=== PATIENT | female | born 1935 | race Caucasian/White ===

== ENCOUNTER 2018-04-25 20:37 | Inpatient (IN) | payer OTHER ==
[2018-04-25] MEDS ORDERED: ONDANSETRON 4 MG/2 ML VIAL ONE (20:54)
[2018-04-25] MEDS ORDERED: NA CHLORIDE 0.9% 500 ML ONE (21:10)
[2018-04-25] MEDS ORDERED: MORPHINE 4 MG/ML SYR ONE (21:10)
[2018-04-25 21:34] LABS: Absolute Lymphocytes (CBC) 1.5 K/uL (0.7-4.9); Absolute Monocytes 0.4 K/uL (0.1-1.3); Absolute Neutrophil 6.9 K/uL (1.8-8.0); Basophils % 0.3 % (0-1.3); Eosinophils % 0.2 % (0-4.4); Hematocrit 39.7 % (36.0-45.0); Lymphocytes % 16.7 % (15.3-44.8); MCH 34.3 pg (27.0-35.0); MCV 101.7 fL (80-100); MPV 11.1 fL (7.6-11.3); Monocytes % 4.6 % (3.3-12.3); RBC Red Blood Cell Count 3.91 M/uL (3.86-4.86)
[2018-04-25 21:38] LABS: Urine Blood TRACE (NEG); Urine Glucose NEGATIVE (NEG); Urine Protein NEGATIVE (NEG); Urine pH 5.5 (5.0-7.0)
[2018-04-25 21:48] LABS: Urine Bacteria 20-50 /HPF (<20); Urine Culture Reflex Order REFLEXED; Urine RBC <5 /HPF (NONE SEEN)
[2018-04-25 21:49] LABS: Albumin 3.9 g/dL (3.4-5.0); Bilirubin Direct 0.1 mg/dL (0-0.2); Bilirubin Total 0.5 mg/dL (0.2-1.0); Potassium 4.1 mmol/L (3.5-5.1); Protein, Total 7.7 g/dL (6.4-8.2)
--- NOTE | 2018-04-25 23:59 | ER ---
Nurse's Notes [facility] Name: Danielle Najera Age: 82 yrs Sex: Female : 1935 Arrival Date: 04/25/2018 Time: 20:38 Bed 25 Private MD: Rox Aguayo C Diagnosis: Partial mid small bowel obsruction, abdominal pain, nausea, vomting Presentation: 04/25 21:12 Presenting complaint: Patient states: "I HAVE THIS ABDOMINAL PAIN FEW HOURS BEFORE AND rv I VOMITED FOUR TIMES ALREADY.". Transition of care: patient was not received from another setting of care. Onset of symptoms was April 25, 2018 at 17:00. Risk Assessment: Do you want to hurt yourself or someone else? Patient reports no desire to harm self or others. Initial Sepsis Screen: Does the patient meet any 2 criteria? No. Patient's initial sepsis screen is negative. Does the patient have a suspected source of infection? No. Patient's initial sepsis screen is negative. Care prior to arrival: None. 21:12 Method Of Arrival: Ambulatory rv 21:12 Acuity: CANDIE 3 rv Triage Assessment: 21:17 GI: Reports lower abdominal pain, cramping, nausea, vomiting. rv Historical: - Allergies: 21:14 PENICILLINS; rv - PMHx: 21:14 High Cholesterol; Hypertension; rv - PSHx: 21:14 ABDOMINAL SURGERY; rv - Immunization history:: Adult Immunizations up to date. - Social history:: Smoking status: Patient/guardian denies using tobacco, never smoked. - Ebola Screening: : Patient negative for fever greater than or equal to 101.5 degrees Fahrenheit, and additional compatible Ebola Virus Disease symptoms Patient denies exposure to infectious person Patient denies travel to an Ebola-affected area in the 21 days before illness onset. Screenin:17 Abuse screen: Denies threats or abuse. Denies injuries from another. Nutritional rv screening: No deficits noted. Tuberculosis screening: No symptoms or risk factors identified. Fall Risk None identified. Assessment: 21:16 General: Appears in no apparent distress. comfortable, Behavior is calm, cooperative. rv Pain: Complains of pain in abdomen Pain currently is 10 out of 10 on a pain scale. Neuro: Level of Consciousness is awake, alert, obeys commands, Oriented to person, place, time, situation. Cardiovascular: Heart tones S1 S2 present. Respiratory: Airway is patent. GI: Abdomen is flat, non-distended. : No signs and/or symptoms were reported regarding the genitourinary system. EENT: No signs and/or symptoms were reported regarding the EENT system. Derm: Skin is intact. 22:00 Reassessment: Patient appears in no apparent distress at this time. Patient and/or rv family updated on plan of care and expected duration. Pain level reassessed. Patient is alert, oriented x 3, equal unlabored respirations, skin warm/dry/pink. PATIENT WENT TO CT SCAN. 22:23 Reassessment: PATIENT CAME BACK FROM CT SCAN. rv 22:56 Reassessment: Patient appears in no apparent distress at this time. Patient and/or rv family updated on plan of care and expected duration. Pain level reassessed. Patient is alert, oriented x 3, equal unlabored respirations, skin warm/dry/pink. AWAITING CT SCAN RESULT. PATIENT IS COMFORTABLE LYING ON BED. Vital Signs: 21:14 BP 175 / 69; Pulse 68; Temp 97.7; Weight 70.31 kg; Height 4 ft. 11 in. (149.86 cm) (R); rv 22:24 BP 124 / 92; Pulse 76; Pulse Ox 100% on R/A; rv 22:55 BP 138 / 57; Pulse 81; Pulse Ox 94% on R/A; rv 23:30 BP 154 / 69; Pulse 67; Pulse Ox 97% on R/A; rv 21:14 Body Mass Index 31.31 (70.31 kg, 149.86 cm) rv ED Course: 20:38 Patient arrived in ED. es 20:38 Rox Aguayo MD is Private Physician. es 20:38 Catrachito Camacho MD is Attending Physician. kdr 21:05 Inserted saline lock: 20 gauge in left antecubital area, using aseptic technique. rv 21:13 Triage completed. rv 21:17 Arm band placed on left wrist. rv 21:17 Patient has correct armband on for positive identification. Placed in gown. Bed in low rv position. Call light in reach. Side rails up X 1. Adult w/ patient. Pulse ox on. NIBP on. 22:20 CT completed. Patient tolerated procedure well. Patient moved back from CT. cw1 22:21 CT Abd/Pelvis - W/Contrast In Process Unspecified. EDMS 22:58 Urine Culture Sent. rv 23:56 Rox Aguayo MD is Hospitalizing Provider. kdr 04/26 00:39 NGT: inserted 14 Fr. via right nare. verified placement of air over stomach, verified rv return of gastric contents, Patient tolerated. 00:55 No provider procedures requiring assistance completed. Patient admitted, IV remains in rv place. intact. Administered Medications: 04/25 21:05 Drug: Zofran 4 mg Route: IVP; Site: left antecubital; rv 22:59 Follow up: Response: No adverse reaction; Nausea is decreased rv 21:11 Drug: morphine 2 mg Route: IVP; Site: left antecubital; rv 22:59 Follow up: Response: No adverse reaction; Pain is decreased rv 21:11 Drug: NS 0.9% 500 ml Route: IV; Rate: bolus; Site: left antecubital; rv 22:59 Follow up: Response: No adverse reaction; IV Status: Completed infusion rv 04/26 00:15 Drug: Flagyl 500 mg Volume: 100 ml; Route: IVPB; Rate: 200 ml/hr; Infused Over: 30 rv mins; Site: left antecubital; 01:02 Follow up: Response: No adverse reaction; IV Status: Completed infusion rv 00:30 Drug: morphine 4 mg Route: IVP; Site: left antecubital; rv 01:02 Follow up: Response: No adverse reaction; Pain is decreased rv Outcome: 04/25 23:57 Decision to Hospitalize by Provider. kdr 04/26 00:56 Admitted to Tele accompanied by nurse, via stretcher, room 415, with chart, Report rv called to LISETTE Condition: improved Instructed on the need for admit. 01:02 Patient left the ED. rv Signatures: Dispatcher [employer] Catrachito Woodall MD MD kdr Salyer, Edna es Woodley, Crystal cw1 Stephane Anderson RN RN rv
--- NOTE | 2018-04-25 23:59 | EDPHYS ---
Physician Documentation [facility] Name: Danielle Najera Age: 82 yrs Sex: Female : 1935 Arrival Date: 04/25/2018 Time: 20:38 Bed 25 Private MD: Rox Aguayo C ED Physician Catrachito Camacho HPI: 04/25 20:59 This 82 yrs old Female presents to ER via Unassigned with complaints of kdr Vomiting, Abdominal Pain. 20:59 The patient presents to the emergency department with nausea, that is mild, vomiting, kdr that is intermittent, abdominal pain, of the right upper quadrant, left upper quadrant, right lower quadrant and left lower quadrant, described as constant, crampy, sharp, steady, and does not radiate. Onset: The symptoms/episode began/occurred suddenly, just prior to arrival. Possible causes: unknown, Often times has been due to bad food in the past but no known exposure today. The symptoms are aggravated by nothing. The symptoms are alleviated by Movement. Associated signs and symptoms: Pertinent positives: abdominal pain, belching, nausea, vomiting, Pertinent negatives: anorexia, constipation, Had normal BM earlier today. Severity of symptoms: in the emergency department the symptoms are unchanged. The patient has experienced similar episodes in the past, several times. The patient has not recently seen a physician. The patient had a similar episode in December due to bad food. Historical: - Allergies: 21:14 PENICILLINS; rv - PMHx: 21:14 High Cholesterol; Hypertension; rv - PSHx: 21:14 ABDOMINAL SURGERY; rv - Immunization history:: Adult Immunizations up to date. - Social history:: Smoking status: Patient/guardian denies using tobacco, never smoked. - Ebola Screening: : Patient negative for fever greater than or equal to 101.5 degrees Fahrenheit, and additional compatible Ebola Virus Disease symptoms Patient denies exposure to infectious person Patient denies travel to an Ebola-affected area in the 21 days before illness onset. ROS: 20:59 Constitutional: Negative for fever, chills, and weight loss, Eyes: Negative for injury, kdr pain, redness, and discharge, ENT: Negative for injury, pain, and discharge, Neck: Negative for injury, pain, and swelling, Cardiovascular: Negative for chest pain, palpitations, and edema, Respiratory: Negative for shortness of breath, cough, wheezing, and pleuritic chest pain, Back: Negative for injury and pain, : Negative for injury, bleeding, discharge, and swelling, MS/Extremity: Negative for injury and deformity, Skin: Negative for injury, rash, and discoloration, Neuro: Negative for headache, weakness, numbness, tingling, and seizure activity. Psych: Negative for depression, anxiety, suicide ideation, homicidal ideation, and hallucinations, Allergy/Immunology: Negative for hives, rash, and allergies, Endocrine: Negative for neck swelling, polydipsia, polyuria, polyphagia, and marked weight changes, Hematologic/Lymphatic: Negative for swollen nodes, abnormal bleeding, and unusual bruising. 20:59 Abdomen/GI: Positive for abdominal pain, nausea and vomiting, abdominal cramps, Negative for diarrhea, constipation, abdominal distension, anorexia, dysphagia, hematemesis, black/tarry stool, rectal pain, rectal bleeding, bowel incontinence. Exam: 20:59 Constitutional: This is a well developed, well nourished patient who is awake, alert, kdr and in no acute distress. Head/Face: Normocephalic, atraumatic. Eyes: Pupils equal round and reactive to light, extra-ocular motions intact. Lids and lashes normal. Conjunctiva and sclera are non-icteric and not injected. Cornea within normal limits. Periorbital areas with no swelling, redness, or edema. Neck: Trachea midline, no thyromegaly or masses palpated, and no cervical lymphadenopathy. Supple, full range of motion without nuchal rigidity, or vertebral point tenderness. No Meningismus. Chest/axilla: Normal chest wall appearance and motion. Nontender with no deformity. No lesions are appreciated. Cardiovascular: Regular rate and rhythm with a normal S1 and S2. No gallops, murmurs, or rubs. Normal PMI, no JVD. No pulse deficits. Respiratory: Lungs have equal breath sounds bilaterally, clear to auscultation and percussion. No rales, rhonchi or wheezes noted. No increased work of breathing, no retractions or nasal flaring. Back: No spinal tenderness. No costovertebral tenderness. Full range of motion. Skin: Warm, dry with normal turgor. Normal color with no rashes, no lesions, and no evidence of cellulitis. MS/ Extremity: Pulses equal, no cyanosis. Neurovascular intact. Full, normal range of motion. Neuro: Awake and alert, GCS 15, oriented to person, place, time, and situation. Cranial nerves II-XII grossly intact. Motor strength 5/5 in all extremities. Sensory grossly intact. Cerebellar exam normal. Normal gait. Psych: Awake, alert, with orientation to person, place and time. Behavior, mood, and affect are within normal limits. 20:59 Abdomen/GI: Inspection: abdomen appears normal, obese Bowel sounds: active, diminished, in all quadrants, Palpation: soft, moderate abdominal tenderness, in all quadrants. Vital Signs: 21:14 BP 175 / 69; Pulse 68; Temp 97.7; Weight 70.31 kg; Height 4 ft. 11 in. (149.86 cm) (R); rv 22:24 BP 124 / 92; Pulse 76; Pulse Ox 100% on R/A; rv 22:55 BP 138 / 57; Pulse 81; Pulse Ox 94% on R/A; rv 23:30 BP 154 / 69; Pulse 67; Pulse Ox 97% on R/A; rv 21:14 Body Mass Index 31.31 (70.31 kg, 149.86 cm) rv MDM: 20:59 Data reviewed: vital signs, nurses notes, lab test result(s), radiologic studies. kdr Counseling: I had a detailed discussion with the patient and/or guardian regarding: the historical points, exam findings, and any diagnostic results supporting the discharge/admit diagnosis, lab results, radiology results. 23:57 Patient medically screened. [facility] 04/26 00:06 Physician consultation: Brian Massey MD and will see patient tomorrow. Physician kdr consultation: Johnny San MD Covering for Dr. Aguayo. Admission orders: after a detailed discussion of the patient's condition and case, the admit orders are written by me. 04/25 20:57 Order name: Basic Metabolic Panel; Complete Time: 23:48 kdr 04/25 20:57 Order name: CBC with Diff; Complete Time: 23:48 kdr 04/25 20:57 Order name: Creatinine for Radiology; Complete Time: 23:48 kdr 04/25 20:57 Order name: Hepatic Function; Complete Time: 23:48 kdr 04/25 20:57 Order name: Lipase; Complete Time: 23:48 kdr 04/25 20:57 Order name: Urine Microscopic Only; Complete Time: 23:48 kdr 04/25 20:57 Order name: CT Abd/Pelvis - W/Contrast kdr 04/25 20:58 Order name: Urine Dipstick--Ancillary (enter results); Complete Time: 23:48 ms 04/25 21:50 Order name: Urine Culture EDMN 04/25 20:57 Order name: IV Saline Lock; Complete Time: 21:12 kdr 04/25 20:57 Order name: Labs collected and sent; Complete Time: 21:12 kdr 04/25 20:57 Order name: Urine Dipstick-Ancillary (obtain specimen); Complete Time: 21:11 kdr 04/25 23:58 Order name: NG Tube; Complete Time: 00:29 kdr 04/25 23:58 Order name: NPO; Complete Time: 00:01 kdr Administered Medications: 04/25 21:05 Drug: Zofran 4 mg Route: IVP; Site: left antecubital; rv 22:59 Follow up: Response: No adverse reaction; Nausea is decreased rv 21:11 Drug: morphine 2 mg Route: IVP; Site: left antecubital; rv 22:59 Follow up: Response: No adverse reaction; Pain is decreased rv 21:11 Drug: NS 0.9% 500 ml Route: IV; Rate: bolus; Site: left antecubital; rv 22:59 Follow up: Response: No adverse reaction; IV Status: Completed infusion rv 04/26 00:15 Drug: Flagyl 500 mg Volume: 100 ml; Route: IVPB; Rate: 200 ml/hr; Infused Over: 30 rv mins; Site: left antecubital; 01:02 Follow up: Response: No adverse reaction; IV Status: Completed infusion rv 00:30 Drug: morphine 4 mg Route: IVP; Site: left antecubital; rv 01:02 Follow up: Response: No adverse reaction; Pain is decreased rv Disposition: 04/25/18 23:57 Hospitalization ordered by Rox Aguayo for Inpatient Admission. Preliminary diagnosis is Partial mid small bowel obsruction, abdominal pain, nausea, vomting. - Bed requested for Telemetry/MedSurg (Inpatient). - Status is Inpatient Admission. rv - Condition is Fair. - Problem is new. - Symptoms have improved. UTI on Admission? No Signatures: Dispatcher [employer] EDAle Austin RN RN kl Rittger, Kevin, MD MD [facility] Stephane Anderson RN RN rv Corrections: (The following items were deleted from the chart) 04/25 21:50 21:03 UA MICROSCOPIC+U.LAB.BRZ ordered. EDMN EDMS 04/26 00:26 04/25 23:57 Hospitalization Ordered by A Olivier COLEY for Inpatient Admission. Preliminary kl diagnosis is Partial mid small bowel obsruction, abdominal pain, nausea, vomting. Bed requested for Telemetry/MedSurg (Inpatient). Status is Inpatient Admission. Condition is Fair. Problem is new. Symptoms have improved. UTI on Admission? No. kdr 04/26 01:02 00:26 04/25/2018 23:57 Hospitalization Ordered by A Olivier COLEY for Inpatient Admission. rv Preliminary diagnosis is Partial mid small bowel obsruction, abdominal pain, nausea, vomting. Bed requested for Telemetry/MedSurg (Inpatient). Status is Inpatient Admission. Condition is Fair. Problem is new. Symptoms have improved. UTI on Admission? No. kl
[2018-04-26] MEDS ORDERED: MORPHINE 4 MG/ML SYR ONE (00:01)
[2018-04-26] MEDS ORDERED: METRONIDAZOLE 500mg IVPB 500 MG/100 ML BAG IV ONE (00:06)
[2018-04-26] MEDS ORDERED: Levofloxacin 750mg IV 750 MG/150 ML BAG IV ONE (01:07)
[2018-04-26 01:35] VITALS: BMI 30.7
[2018-04-26] MEDS: D5 0.45 NS 1,000 ML IV SCH ×3 (01:57→17:33)
[2018-04-26] MEDS: MORPHINE 4 MG/ML SYR IV PRN ×3 (04:50→13:14)
[2018-04-26] MEDS: METRONIDAZOLE 500mg IVPB 500 MG/100 ML BAG IV SCH ×4 (06:05→17:35)
--- NOTE | 2018-04-26 08:01 | RAD REPORT ---
EXAM DESCRIPTION: CT - Abdomen Pelvis W Contrast - 04/25/2018 10:21 pm CLINICAL HISTORY: Abdominal pain nausea and vomiting COMPARISON: 2013 TECHNIQUE: Computed axial tomography of the abdomen pelvis was obtained. 100 cc Isovue-300 was admin istered intravenously. Oral contrast was not requested which limits evaluation of bowel. A preliminar y report was generated by [email or web address] and reviewed prior to this dictation All CT scans are performed using dose optimization technique as appropriate and may include automated exposure control or mA/KV adjustment according to patient size. FINDINGS: The liver, spleen, pancreas, adrenal and kidneys appear unremarkable. The gallbladder has been removed. Mild prominence of the biliary tree is seen. However it is without significant change from prior exam Postsurgical changes involve the stomach and colon. Diverticula stem from the colon without evidence of diverticulitis. Mild dilatation of proximal and mid small bowel is seen with decompression of distal small bowel. The appendix is normal. Spondylosis involves lumbar spine resulting in spinal stenosis IMPRESSION: These findings likely indicate a mechanical small bowel obstruction
[2018-04-26] MEDS: FAMOTIDINE 20 MG/2 ML VIAL IV SCH (08:28)
[2018-04-26] MEDS: ENOXAPARIN 30 MG/0.3 ML SQ SCH (08:29)
[2018-04-26] MEDS: ONDANSETRON 4 MG/2 ML VIAL IV PRN (08:29)
--- NOTE | 2018-04-26 08:54 | P.PN ---
Subjective Date of Service: 04/26/18 Chief Complaint: SBO Subjective: Improving (Patient has passed gas since admission, pain is improved since admission, but remains mild at present. nausea persists.) Physical Examination - Vital Signs Temperature: 97 F Blood Pressure: 160/87 Pulse: 72 Respirations: 18 Pulse Ox (%): 96 - Physical Exam General: Alert, In no apparent distress, Cooperative HEENT: Mucous membr. moist/pink Respiratory: Normal air movement Gastrointestinal: Other (soft, mild tenderness to palpation, most at midline, minimal distention, no rebound, no peritoneal signs, NG tube in place) Neurological: Normal speech - Studies Laboratory Data (last 24 hrs) 04/25/18 21:05: Creatinine 1.40 H 04/25/18 21:05: WBC 8.9, Hgb 13.4, Hct 39.7, Plt Count 158 04/25/18 21:05: Sodium 143, Potassium 4.1, BUN 17, Creatinine 1.40 H, Glucose 113 H, Total Bilirubin 0.5, AST 24, ALT 18, Alkaline Phosphatase 54, Lipase 103 Assessment And Plan - Current Problems (Diagnosis) (1) Small bowel obstruction Onset Date: 09/27/14 Current Visit: No Status: Acute Plan: --Cross coverage for Dr. Massey -- > continue NG tube decompression > serial abdominal exams > ambulate with assist > continue medical management
--- NOTE | 2018-04-26 15:46 | CON ---
Date of Consultation: 04/26/2018 Reason: Possible small bowel obstruction. History Of Present Illness: The patient is an 82-year-old female, presents with 1-day history of kesha sea, vomiting, and abdominal pain in the upper abdomen. Crampy in nature. She had a similar episode approximately 4 years ago and was treated with conservative measures and she improved. Her last bow el movement was yesterday. The last time she passed gas was yesterday. No sore throat, runny nose, cough, headaches, or dizziness. No chest pain. No fever or chills. Review of Systems: Otherwise unremarkable. Past Medical History: High cholesterol, hypertension. Past Surgical History: Sigmoid resection for recurrent diverticulitis, cholecystectomy. Social History: She used to smoke in the past. She does not smoke. She does not drink. Family History: Significant for heart disease, diabetes. Allergies: INCLUDE CODEINE AND PENICILLIN. Physical Examination: Vital Signs: Stable. She is afebrile. General: She is awake, alert, and oriented x3. Head and Neck: Cranial nerves 2 through 12 are grossly within normal limits. No neck masses. No JV D. Throat clear. Neck: Supple. Chest: Clear. Heart: S1, S2. Abdomen: Soft. Hypoactive bowel sounds. Tenderness in the upper and middle abdomen. No rebound, r igidity, or guarding. Extremities: Adequately perfused. Nontender. Neuro: Nonfocal. CT of the abdomen and pelvis reviewed, shows mild dilatation of the proximal and mid small bowel with decompression of the distal small bowel. No pneumatosis, no free air. No other significant finding s. Laboratory Data: Shows a white count 8.9, slight left shift. Electrolytes reviewed. Assessment: Small bowel obstruction, likely partial. Recommendation: Continue n.p.o., NG tube, IV fluids, IV antibiotics. We will check abdominal x-rays in the morning. Also do serial abdominal exams. At this time, it does not appear the patient needs emergent surgical intervention, however, we will follow this patient while in the hospital. THU/ANITA Voice ID: [id number] Report ID: [id number]
[2018-04-26] MEDS: Levofloxacin 250mg IV 250 MG/50 ML BAG IV SCH (21:13)
[2018-04-27] MEDS: METRONIDAZOLE 500mg IVPB 500 MG/100 ML BAG IV SCH ×5 (00:17→23:56)
[2018-04-27 04:16] LABS: Absolute Lymphocytes (CBC) 1.3 K/uL (0.7-4.9); Absolute Monocytes 0.4 K/uL (0.1-1.3); Absolute Neutrophil 2.3 K/uL (1.8-8.0); Basophils % 0.5 % (0-1.3); Eosinophils % 1.4 % (0-4.4); Hematocrit 33.7 % (36.0-45.0); Lymphocytes % 31.7 % (15.3-44.8); MCH 34.8 pg (27.0-35.0); MCV 101.9 fL (80-100); MPV 10.8 fL (7.6-11.3)
[2018-04-27 04:33] LABS: Albumin 2.9 g/dL (3.4-5.0); Bilirubin Direct 0.1 mg/dL (0-0.2); Bilirubin Total 0.4 mg/dL (0.2-1.0); Potassium 3.9 mmol/L (3.5-5.1)
--- NOTE | 2018-04-27 07:15 | HP ---
Date of Admission: 04/26/2018 Chief Complaint: Abdominal pain, nausea, vomiting. History Of Present Illness: This is an 82-year-old female patient, who started to have abdominal mike n, nausea, vomiting, and chills, and all these complaints started yesterday. She came into the emerg ency room. As her symptoms did not improve and after she was evaluated in the ER, she was admitted t o the hospital. She has had episodes with small bowel obstruction and she was diagnosed as having pa rtial small bowel obstruction with further workup in the emergency room including blood work and CAT scan, and was admitted to the hospital. NG tube was placed in the ER and IV antibiotics were started , and I saw her in the hospital this morning. Allergies: TO CODEINE AND PENICILLIN. Medications: List reviewed. Review of Systems: GI: As mentioned above. Constitutional: As mentioned above. All other systems reviewed and negative. 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 Past Surgical History: Cholecystectomy, resection of sigmoid colon with end-to-end anastomosis [place] [address] Massey for diverticulitis. Social History: The patient lives at home by herself. Negative for smoking or alcohol use. She stone s have prior history of smoking but she quit smoking several years ago. Family History: Father, heart disease and diabetes. Mother, heart disease, cancer, primary site unk nown. Siblings, diabetes. Physical Examination: Vital Signs: Last temperature this morning 97.1, pulse rate 71, respiratory rate 18, blood pressure 147/59. Height 4 feet 11 inches. Weight 152 pounds. Oxygen saturation 97%. General: Awake, alert, oriented, not in distress. HEENT: Head atraumatic, normocephalic. Conjunctivae nonerythematous. Sclerae white. Mouth, no thr ush or edema noted. Ears/Nose, no mass, lesion, discharge noted. Neck: Supple. No JVD, lymph nodes, bruit, thyromegaly noted. Lungs: Bilateral good equal air entry. Clear to auscultation. No rhonchi. No rales. Heart: Normal heart sounds, no murmur or gallop. Abdomen: Soft, bowel sounds normal. No guarding, rigidity. No distention, no rebound tenderness, b ut the patient does have diffuse tenderness present over her abdomen. No hepatosplenomegaly, no brui t. Extremities: No leg edema. No calf tenderness. Skin: No rash, ulcer, cellulitis. Lymphatics: No lymph node enlargement in neck, supraclavicular, infraclavicular region. Neuro: No focal neurological deficit. Chest: Unremarkable. External Genitalia: Deferred. Rectal: Deferred. Laboratory Data: CAT scan of the abdomen and pelvis done in the emergency room shows evidence of par tial small bowel obstruction. No evidence of free air. White count 8.9, hemoglobin 13.4, platelets 158. Sodium 143, potassium 4.1, chloride 106, bicarb 28, BUN 17, creatinine 1.40, glucose 113. Live r function tests unremarkable. Lipase 103. Urinalysis; 3+ esterase, wbc 10-20, bacteria 20-50. Impression: 1.Partial small bowel obstruction, likely due to intraabdominal adhesions. 2.Urinary tract infection. 3.Diverticulosis. 4.Hypertension. 5.Hyperlipidemia. 6.Osteopenia. Plan: Admit the patient to hospital for further evaluation and management of this problem. The irvin ent is appropriate for inpatient and is expected to spend 2 midnights in hospital. We will go ahead and keep her n.p.o. Continue NG tube with low intermittent suction. IV fluid will be continued devan g with pain medication and nausea medication as needed, per order. DVT prophylaxis will be given usi ng Lovenox. We will continue IV antibiotics. Home medications will be continued per order. We will consult Physical Therapy to help ambulate the patient. General Surgery consultation will be rajesh asif from Dr. Massey and I have discussed details with him. We will repeat blood work, monitor electroly cinthia, and blood count, and I will see her tomorrow for followup. Details and plan of treatment discus sed with her. NEVIN/MODL Voice ID: [id number]
--- NOTE | 2018-04-27 08:56 | RAD REPORT ---
EXAM DESCRIPTION: RAD - Abdomen W Erect - 04/27/2018 8:17 am CLINICAL HISTORY: sbo Pain COMPARISON: ABDOMEN W ERECT dated 09/28/2014 FINDINGS: The bowel gas pattern is non-obstructive. No evidence of free air or pneumatosis. Previous ly noted small bowel obstruction pattern is no longer identified. Significant stool is present colon. Moderate dextroscoliosis of the lumbar spine. IMPRESSION: Resolution of previously noted small bowel obstruction. Moderate fecal retention in the colon.
[2018-04-27] MEDS: ENOXAPARIN 30 MG/0.3 ML SQ SCH (09:03)
[2018-04-27] MEDS: FAMOTIDINE 20 MG/2 ML VIAL IV SCH (09:03)
[2018-04-27] MEDS ORDERED: BISACODYL 10 MG RECTAL SUPP PR ONE (10:02)
[2018-04-27] MEDS: ACETAMINOPHEN 500 MG TAB PO PRN (10:55)
[2018-04-27] MEDS: MORPHINE 4 MG/ML SYR IV PRN ×3 (11:04→23:56)
[2018-04-27] MEDS: D5 0.45 NS 1,000 ML IV SCH (13:30)
--- NOTE | 2018-04-27 14:51 | PN ---
Date of Progress Note: 04/27/2018 Subjective: The patient is awake and alert. She has not had a bowel movement. Abdominal x-rays payton w resolution of the small bowel obstruction. Laboratory Data: Reviewed. Abdomen is still little tender on the left side, but no peritonitis. Assessment: Small bowel obstruction, improving. Recommendation: We will clamp the NG tube. Start her on clear liquids. We will give her 1 dulcolax suppository as she has lots of stool in her colon and we will do serial abdominal exams. Continue c urrent management. /MODL Voice ID: [id number] Report ID: [id number]
[2018-04-27] MEDS: ONDANSETRON 4 MG/2 ML VIAL IV PRN ×2 (19:36→23:56)
[2018-04-27] MEDS: Levofloxacin 250mg IV 250 MG/50 ML BAG IV SCH (21:12)
--- NOTE | 2018-04-27 23:18 | PN ---
Date of Progress Note: 04/27/2018 Subjective: Patient was seen this morning for followup. No new complaints or problems reported by tiara hallman. Lying in bed, not in any distress. Still has NG tube. Abdominal pain is present, but she s ays she feels little better today than yesterday. Objective: Vital Signs: Reviewed. HEENT Examination: Unremarkable. Lungs: Clear to auscultation. Heart: Heart sounds normal. Abdomen: Soft. Bowel sounds present. No distention. Presence of tenderness, mostly in the left si de. Overall tenderness is better today than yesterday. No rebound tenderness. Extremity Exam: No leg edema. Laboratory Data: White count 4.1, hemoglobin 11.5, platelets 130. Sodium 144, potassium 3.9, chlori de 109, bicarb 32, BUN 10, creatinine 1.20, glucose 97. Liver function tests, unremarkable. Lipase 71. Impression: 1.Partial small bowel obstruction. 2.Hypertension. 3.Anemia. 4.Thrombocytopenia. Plan: We will continue current medications. Continue NG tube, IV fluid, IV antibiotics. Ambulation was encouraged. Continue DVT prophylaxis and I will see her tomorrow for followup. We will continu e to follow with Dr. Massey. NEVIN/MODL Voice ID: [id number] Report ID: [id number]
[2018-04-28] MEDS: D5 0.45 NS 1,000 ML IV SCH ×2 (01:59→08:00)
[2018-04-28] MEDS: METRONIDAZOLE 500mg IVPB 500 MG/100 ML BAG IV SCH ×4 (05:09→23:45)
[2018-04-28] MEDS: ENOXAPARIN 30 MG/0.3 ML SQ SCH (09:30)
[2018-04-28] MEDS: METOPROLOL TAR 25 MG TAB PO SCH ×2 (09:30→20:31)
[2018-04-28] MEDS: FAMOTIDINE 20 MG/2 ML VIAL IV SCH (09:32)
--- NOTE | 2018-04-28 15:04 | PN ---
Date of Progress Note: 04/28/2018 Subjective: The patient is awake and alert, had a bowel movement yesterday, tolerating clear liquids . Residual is minimal. Objective: Vital signs: Stable, afebrile. Abdomen: Soft, nondistended, with much less tenderness than before. No peritonitis. Assessment: Small bowel obstruction resolved. Recommendation: Discontinue NG tube. Advance diet. Can be discharged per Dr. Aguayo once the patient tolerates a soft diet. /MODL Voice ID: [id number] Report ID: [id number]
[2018-04-28] MEDS: Levofloxacin 250mg IV 250 MG/50 ML BAG IV SCH (20:31)
--- NOTE | 2018-04-28 23:16 | PN ---
Date of Progress Note: 04/28/2018 Subjective: Patient was seen this morning for followup. She was lying in bed, had NG tube in place which was not attached to suction per Dr. Massey and she still has abdominal pain but overall it is mu ch better than before as she says. Objective: Vital Signs: Reviewed. HEENT Examination: Unremarkable. Lungs: Clear to auscultation. Heart: Heart sounds normal. Abdomen: Soft. Bowel sounds normal. No guarding, rigidity, or distention. Presence of mild tender ness, mostly on the left side of her abdomen. No rebound tenderness. Extremity Exam: No leg edema. Impression: 1.Partial small bowel obstruction. 2.Hypertension. Plan: Continue current medications and antibiotics. Ambulation was encouraged. Continue DVT prophy laxis with Lovenox. The patient is on clear liquid diet. We will advance her diet as per instructio ns from Dr. Massey. Possible discharge to go home in next 1 or 2 days. Continue metoprolol for hyper tension. Plan of treatment discussed with the patient. NEVIN/ANITA Voice ID: [id number] Report ID: [id number]
[2018-04-29] MEDS: D5 0.45 NS 1,000 ML IV SCH ×2 (04:00→17:21)
[2018-04-29 04:15] LABS: Absolute Lymphocytes (CBC) 1.6 K/uL (0.7-4.9); Absolute Monocytes 0.4 K/uL (0.1-1.3); Absolute Neutrophil 1.4 K/uL (1.8-8.0); Basophils % 0.5 % (0-1.3); Eosinophils % 1.8 % (0-4.4); Lymphocytes % 45.5 % (15.3-44.8); MCH 34.6 pg (27.0-35.0); MCV 100.3 fL (80-100); MPV 10.7 fL (7.6-11.3); RBC Red Blood Cell Count 3.19 M/uL (3.86-4.86)
[2018-04-29 04:24] LABS: Magnesium 1.9 mg/dL (1.8-2.4); Potassium 3.6 mmol/L (3.5-5.1)
[2018-04-29] MEDS: METRONIDAZOLE 500mg IVPB 500 MG/100 ML BAG IV SCH ×4 (05:44→23:48)
[2018-04-29] MEDS: ENOXAPARIN 30 MG/0.3 ML SQ SCH (09:12)
[2018-04-29] MEDS: METOPROLOL TAR 25 MG TAB PO SCH ×2 (09:12→22:09)
[2018-04-29] MEDS: FAMOTIDINE 20 MG/2 ML VIAL IV SCH (09:15)
[2018-04-29] MEDS: ONDANSETRON 4 MG/2 ML VIAL IV PRN (12:48)
--- NOTE | 2018-04-29 18:24 | PN ---
Date of Progress Note: 04/29/2018 Subjective: The patient is awake, alert, tolerating a full liquid. She was advanced to GI soft diet , however, she had nausea right after, so we went back to full liquids. Objective: Vital signs: Stable and afebrile. Abdomen: Benign. Assessment: Small bowel obstruction. Clinically improved, however, the patient is slightly slow pro rené as far as diet is concerned. Recommendation: Would be to slowly advance her diet. Keep her on full liquids another day. We will try GI soft tomorrow and if she tolerates that, she can be discharged home. /MODL Voice ID: [id number] Report ID: [id number]
[2018-04-29] MEDS: Levofloxacin 250mg IV 250 MG/50 ML BAG IV SCH (22:08)
[2018-04-29] MEDS: D5 0.9 NS 1,000 ML IV SCH (22:08)
--- NOTE | 2018-04-30 03:16 | PN ---
Date of Progress Note: 04/29/2018 Subjective: The patient was seen this morning for followup. No new complaints or problems reported by patient. Lying in bed, not in any distress. Vital signs reviewed. Denies any complaints. She w as tolerating full liquid diet well, and after I saw her Dr. Massey saw her and advanced her diet to s oft diet, and unfortunately the patient did not tolerate soft diet. Our plan was to discharge her to go home if she tolerates a soft diet, but discharge was canceled because the patient did not tolerat e soft diet. In fact, this evening, after nurse called and informed me that earlier this afternoon w e changed from soft diet to liquid diet and this evening I made her n.p.o. because she was having mike n in the left lower quadrant and nausea and vomiting. Objective: HEENT Examination: Unremarkable. Lungs: Clear to auscultation. Heart: Heart sounds normal. Abdomen: Soft. Bowel sounds normal. No guarding, rigidity, or distention. Presence of mild left-s ided tenderness. Extremities: No leg edema. Laboratory Data: White count 3.5, hemoglobin 11, platelets 126. Sodium 143, potassium 3.6, chloride 109, bicarb 30, BUN 7, creatinine 1.0, glucose 93, magnesium 1.9. Impression: 1.Partial small bowel obstruction. 2.Hypertension. 3.Anemia. 4.Thrombocytopenia. Plan: We will continue current medications. Keep her n.p.o. Continue IV fluid. I will order IV an tibiotics. Continue to follow up Dr. Massey. I will see her tomorrow for followup. NEVIN/MODL Voice ID: [id number] Report ID: [id number]
[2018-04-30] MEDS: METRONIDAZOLE 500mg IVPB 500 MG/100 ML BAG IV SCH ×4 (05:18→23:56)
[2018-04-30 08:42] LABS: Absolute Lymphocytes (CBC) 1.1 K/uL (0.7-4.9); Absolute Monocytes 0.4 K/uL (0.1-1.3); Absolute Neutrophil 1.6 K/uL (1.8-8.0); Basophils % 0.8 % (0-1.3); Eosinophils % 1.9 % (0-4.4); Hematocrit 34.4 % (36.0-45.0); Lymphocytes % 33.5 % (15.3-44.8); MCH 34.1 pg (27.0-35.0); MCV 101.8 fL (80-100); MPV 10.7 fL (7.6-11.3); Monocytes % 12.2 % (3.3-12.3); RBC Red Blood Cell Count 3.38 M/uL (3.86-4.86)
[2018-04-30 08:55] LABS: Magnesium 2.1 mg/dL (1.8-2.4); Potassium 3.6 mmol/L (3.5-5.1)
[2018-04-30] MEDS ORDERED: ENOXAPARIN 40 MG/0.4 ML SQ SCH (09:00)
[2018-04-30] MEDS: D5 0.9 NS 1,000 ML IV SCH ×2 (09:20→22:26)
[2018-04-30] MEDS: FAMOTIDINE 20 MG/2 ML VIAL IV SCH (09:29)
[2018-04-30] MEDS: METOPROLOL TAR 25 MG TAB PO SCH ×2 (09:35→21:32)
--- NOTE | 2018-04-30 09:37 | RAD REPORT ---
EXAM DESCRIPTION: RAD - Abdomen W Erect - 04/30/2018 6:58 am CLINICAL HISTORY: Abdominal pain FINDINGS: A few mildly dilated loops of small bowel are present within the left upper quadrant. Air is present throughout the colon. Free air is not seen. IMPRESSION: These findings probably indicate a mild partial mechanical small bowel obstruction
[2018-04-30 12:23] VITALS: O2SAT 99
--- NOTE | 2018-04-30 12:28 | PN ---
Date of Progress Note: 04/30/2018 Subjective: The patient is awake, alert. Still with some left upper quadrant pain. Objective: Vital signs: Stable, afebrile. Abdomen: Little tender in the left side, but no peritonitis. Diagnostic Data: Abdominal x-ray shows still a few loops of dilated small bowel in the left upper qu adrant. Please note, the patient is having stool, C diff is pending. Assessment: Small bowel obstruction. Recommendations: We will go ahead and get a small bowel series. We will check stool for C diff and make further recommendation after the aforementioned workup has been completed. /MODL Voice ID: [id number] Report ID: [id number]
[2018-04-30] MEDS: ACETAMINOPHEN 500 MG TAB PO PRN (13:00)
--- NOTE | 2018-04-30 18:48 | RAD REPORT ---
EXAM DESCRIPTION: RAD - Small Bowel Series - 04/30/2018 6:13 pm CLINICAL HISTORY: Abdominal pain, small bowel obstruction COMPARISON: None. FINDINGS: [employer] film shows a nonspecific bowel gas pattern. No obstruction or free air. No suspiciou s calcifications. Advanced degenerative changes are present. Is right convex curvature of the lumbar spine an approximately 8 mm of right lateral subluxation L3 relative to L4. Gastric surgical changes are noted. No delay in transit of contrast into the small bowel. Small bowel loops are not dilated on this examination. No mucosal thickening or mass. Transit time to the colon was approximately 20 minutes. Appendix was identifiable. Terminal ileum has normal appearance. IMPRESSION: No small bowel abnormality identified. No small bowel obstruction is present. Transit time to the colon was approximately 20 minutes.
--- NOTE | 2018-04-30 21:20 | PN ---
Date of Progress Note: 04/30/2018 Subjective: The patient was seen this morning for followup. No new complaints or problems reported by the patient. No nausea, vomiting overnight. but yesterday evening, she had episode of nausea, vom iting after she had her liquid diet. Objective: HEENT: Unremarkable. Lungs: Clear to auscultation. Heart: Heart sounds normal. Abdomen: Soft. Bowel sounds normal. No guarding, rigidity, tenderness except some mild tenderness in the left lower quadrant. No rebound tenderness. No abdominal distention. Bowel sounds normoacti ve. Extremities: No leg edema. Impression: 1.Partial small bowel obstruction. 2.Hypertension. Plan: We will go ahead and continue IV fluid and antibiotics per order. Ambulation was encouraged. Continue current DVT prophylaxis and we will start on clear liquid today, and I will see her tomorro w for followup. NEVIN/ANITA Voice ID: [id number] Report ID: [id number]
[2018-04-30] MEDS: Levofloxacin 250mg IV 250 MG/50 ML BAG IV SCH (21:32)
[2018-05-01] MEDS: ACETAMINOPHEN 500 MG TAB PO PRN ×2 (00:02→15:18)
[2018-05-01] MEDS: METRONIDAZOLE 500mg IVPB 500 MG/100 ML BAG IV SCH ×4 (05:12→23:28)
[2018-05-01] MEDS: FAMOTIDINE 20 MG/2 ML VIAL IV SCH (09:04)
[2018-05-01] MEDS: METOPROLOL TAR 25 MG TAB PO SCH ×2 (09:04→21:02)
[2018-05-01] MEDS: ENOXAPARIN 30 MG/0.3 ML SQ SCH (09:04)
--- NOTE | 2018-05-01 11:25 | PN ---
Date of Progress Note: 05/01/2018 Subjective: The patient still has a little bit of pain on the left side, however, she had a small tressa wel series done yesterday, which was negative. Because of the pain, I would like to get a CT scan, w hich will be done later this morning. She is awake, alert, passing gas, having bowel movements. C d iff is negative. Objective: Abdomen: Much less tenderness on the left side. No peritonitis. Assessment: 1.Small bowel obstruction, resolved. 2.Left-sided abdominal pain. Etiology unclear. Want to sure it is not diverticulitis. Recommendations: Await CT results, following which we can be feed her and if she tolerates that, she will be discharged. THU/ANITA Voice ID: [id number] Report ID: [id number]
[2018-05-01] MEDS: D5 0.9 NS 1,000 ML IV SCH ×2 (12:21→15:49)
--- NOTE | 2018-05-01 12:44 | RAD REPORT ---
EXAM DESCRIPTION: CT - Abdomen Pelvis W Contrast - 05/01/2018 12:05 pm CLINICAL HISTORY: Abdominal pain. COMPARISON: April 25, 2018 TECHNIQUE: Computed axial tomography of the abdomen and pelvis was obtained. 100 cc Isovue-300 is ad ministered intravenously. Oral contrast was given. All CT scans are performed using dose optimization technique as appropriate and may include automated exposure control or mA/KV adjustment according to patient size. FINDINGS: A couple of small bowel loops are upper limits normal caliber. No dilated small bowel is seen. Contra st is present throughout the colon. The wall of a loop of small bowel within the anterior central lower abdomen is thickened. Mild strand ing is present within the adjacent fat. There is no evidence of diverticulitis No other change has occurred since the prior exam. IMPRESSION: Previously described small bowel obstruction has resolved Thickening of a loop of small bowel within the anterior central lower abdomen may be secondary to inf lammation. There is mild stranding within the adjacent fat
--- NOTE | 2018-05-01 12:50 | RAD REPORT ---
EXAM DESCRIPTION: RAD - Abdomen 1 View (KUB) - 05/01/2018 9:38 am CLINICAL HISTORY: Abdomen pain. FINDINGS: Small bowel caliber is normal. Contrast is present throughout the colon.
--- NOTE | 2018-05-01 12:57 | PN ---
Date of Progress Note: 05/01/2018 Subjective: The patient was seen this morning for followup. No new complaints or problems reported by her. Her daughter was present with her at bedside. Abdominal pain is better. No nausea, no vomi ting. Objective: Vital Signs: Reviewed. HEENT: Unremarkable. Lungs: Clear to auscultation. Heart: Heart sounds normal. Abdomen: Soft, bowel sounds normal. No distention, no guarding, no rigidity. Presence of mild tend erness in left lower quadrant, which is significantly better than what she had throughout this hospit alization. Extremity: No leg edema. Laboratory Data: Yesterday's white count was 3.1, hemoglobin 11.5, platelets 132; and yesterday's ch emistry had shown sodium 145, potassium 3.6, chloride 111, bicarb 28, BUN 7, creatinine 1.20, glucose 93, magnesium 2.1. Impression: 1.Partial small bowel obstruction. 2.Hypertension. 3.Anemia. 4.Diverticulosis. Plan: We will continue current medications. Continue to keep her n.p.o., IV fluid will be continued , IV antibiotics will be continued per order. Ambulation was encouraged and we will continue to foll ow with Dr. Massey. Yesterday, the patient had a small bowel series, which was unremarkable. Plain K UB x-ray had shown evidence of partial small-bowel obstruction, so the patient will have another KUB x-ray this morning and then we will decide depending on Dr. Massey's recommendation. NEVIN/MODL Voice ID: [id number] Report ID: [id number]
[2018-05-01] MEDS: Levofloxacin 250mg IV 250 MG/50 ML BAG IV SCH (21:02)
[2018-05-02] MEDS: D5 0.9 NS 1,000 ML IV SCH ×2 (01:20→05:15)
[2018-05-02] MEDS: METRONIDAZOLE 500mg IVPB 500 MG/100 ML BAG IV SCH (05:14)
[2018-05-02] MEDS: ACETAMINOPHEN 500 MG TAB PO PRN (05:19)
[2018-05-02 07:04] LABS: Absolute Lymphocytes (CBC) 1.3 K/uL (0.7-4.9); Absolute Monocytes 0.4 K/uL (0.1-1.3); Absolute Neutrophil 1.4 K/uL (1.8-8.0); Basophils % 0.6 % (0-1.3); Eosinophils % 2.4 % (0-4.4); Hematocrit 32.1 % (36.0-45.0); Lymphocytes % 40.5 % (15.3-44.8); MCH 34.3 pg (27.0-35.0); MCV 101.3 fL (80-100); MPV 11.2 fL (7.6-11.3); Monocytes % 11.1 % (3.3-12.3); RBC Red Blood Cell Count 3.17 M/uL (3.86-4.86)
[2018-05-02 07:12] LABS: Magnesium 1.8 mg/dL (1.8-2.4); Potassium 3.2 mmol/L (3.5-5.1)
[2018-05-02 08:23] VITALS: BP 165/80; TEMP 97.4
[2018-05-02] MEDS: ENOXAPARIN 30 MG/0.3 ML SQ SCH (08:47)
[2018-05-02] MEDS: FAMOTIDINE 20 MG/2 ML VIAL IV SCH (08:47)
[2018-05-02] MEDS: METOPROLOL TAR 25 MG TAB PO SCH (08:47)
--- NOTE | 2018-05-02 13:09 | PN ---
Date of Progress Note: 05/02/2018 Subjective: The patient is awake, alert. No complaint. Had a CAT scan yesterday, which showed ente ritis. She is tolerating diet. Pain is much better. Objective: Vital signs: Stable, afebrile. Abdomen: Soft, nondistended, nontender. Positive bowel sounds. Assessment: Small bowel obstruction, resolved. Gastroenteritis will be treated with oral antibiotic s. Recommendation: Cleared for discharge if she tolerates diet and oral antibiotics. THU/MODEric Voice ID: [id number] Report ID: [id number]
--- NOTE | 2018-05-03 05:07 | DS ---
Date of Discharge: 05/02/2018 Disposition: Discharged to go home. Physical Examination: HEENT: Unremarkable. Lungs: Clear to auscultation. Heart: Sounds normal. Abdomen: Soft. Bowel sounds normal. No guarding, rigidity, tenderness, or distention. Extremities: No leg edema. Discharge Medications And Instructions: 1.Continue prior home medications. 2.Follow up at my office in 1 week. 3.Take Levaquin 500 mg daily for 1 week. 4.Metronidazole 500 mg 3 times a day for 1 week. Laboratory Data: Labs done during this hospitalization: Initial white count 8.9, hemoglobin 13.4, p latelets 158. Last white count today 3.1, hemoglobin 10.9, platelets 124. Initial sodium 143, potas sium 4.1, chloride 106, bicarb 28, BUN 17, creatinine 1.40, glucose 113. Liver function tests normal . Lipase 103. This morning, sodium 145, potassium 3.2, chloride 111, bicarb 28, BUN 3, creatinine 0 .9, glucose 98, magnesium 1.8. CAT scan initially when she first came into the emergency room showed partial small-bowel obstruction. Repeat CAT scan yesterday no evidence of bowel obstruction. Small bowel series from 04/30/2018 was normal. Hospital Course: An 82-year-old female patient who was admitted to the hospital after she presented to emergency room with complaints of abdominal pain, nausea, vomiting. Please see dictated H and P f or more information. The patient was evaluated in the ER, admitted to the hospital with partial smal l bowel obstruction. The patient had NG tube placed to low intermittent suction and it was hooked up to low intermittent suction. General Surgery consultation was obtained from Dr. Massey. IV fluid, I V antibiotics were started. The patient's condition improved, and once it improved, Dr. Massey starte d her on clear liquid diet, and he advanced to full liquid diet and soft diet, and at that time, she started to have worsening of her nausea and abdominal pain. So, we kept her n.p.o. again and IV flui d was continued along with IV antibiotics. Next day, Dr. Massey obtained small bowel series which cam e back normal and CAT scan of the abdomen was negative for any bowel obstruction. This was a repeat CAT scan done on 05/01/2018. The patient was started on her diet again, and now, she is tolerating t hat very well without any problem. She is having bowel movement and pain has improved significantly. The patient was discharged to go home in stable condition with above-mentioned medication and instr uctions. Final Diagnoses: 1.Partial small bowel obstruction, likely due to intraabdominal adhesions. 2.Urinary tract infection. 3.Diverticulosis. 4.Hypertension. 5.Hyperlipidemia. 6.Osteopenia. 7.Anemia. 8.Hypokalemia. NEVIN/MODL Voice ID: [id number] Report ID: [id number]
== END 2018-05-02 11:14 | disposition home or self-care (01) | DRG 389 ==
LOC: ER 20:37 → ERHOLD 23:59 → 4TH 04-26 00:57
PROVIDERS: ADMIT Internal Medicine; ATTEND Internal Medicine
DX: K56.51 Intestinal adhesions [bands], with partial obstruction (principal); N39.0 Urinary tract infection, site not specified; K57.30 Diverticulosis of large intestine without perforation or abscess without bleeding; I10 Essential (primary) hypertension; E78.5 Hyperlipidemia, unspecified; D64.9 Anemia, unspecified; E87.6 Hypokalemia; M85.80 Other specified disorders of bone density and structure, unspecified site; K52.9 Noninfective gastroenteritis and colitis, unspecified; D69.6 Thrombocytopenia, unspecified; Z88.5 Allergy status to narcotic agent; Z88.0 Allergy status to penicillin; Z87.891 Personal history of nicotine dependence
CPT/HCPCS: 36415; 74018; 74019; 74177; 74250; 80048; 80076; 81003; 81015; 83690; 83735; 85025; 87086; 87088; 87493; 96361; 96365; 96375; 97163; 99285; J1650; J2405; Q9967

== ENCOUNTER 2020-09-11 20:06 | Inpatient (IN) | payer OTHER ==
[2020-09-11] MEDS ORDERED: ONDANSETRON 4 MG/2 ML VIAL IV PRN (20:52)
[2020-09-11] MEDS ORDERED: INFLUENZA VACCINE (for 3y+) 0.5 ML DOSE IMVAC ONE (22:00)
[2020-09-11 22:04] LABS: Albumin 3.6 g/dL (3.4-5.0); Bilirubin Total 0.5 mg/dL (0.2-1.0); Potassium 3.4 mmol/L (3.5-5.1); Protein, Total 7.1 g/dL (6.4-8.2); Thyroid Stimulating Hormone 1.45 uIU/mL (0.360-3.740)
[2020-09-11 22:16] VITALS: BMI 32.7
[2020-09-11 22:22] LABS: Absolute Lymphocytes (CBC) 2.5 K/uL (0.7-4.9); Basophils % 0.5 % (0-1.3); Hematocrit 36.5 % (36.0-45.0); Lymphocytes % 32.9 % (15.3-44.8); MPV 11.1 fL (7.6-11.3); RBC Red Blood Cell Count 3.65 M/uL (3.86-4.86)
[2020-09-11] MEDS: MORPHINE 2 MG/ML SYR IV PRN (22:29)
[2020-09-11] MEDS: D5 0.9 NS 1,000 ML IV SCH (22:29)
[2020-09-11] MEDS: METRONIDAZOLE 500mg IVPB 500 MG/100 ML BAG IV SCH (22:30)
[2020-09-11] MEDS: Levofloxacin500mg IV 500 MG/100 ML BAG IV SCH (22:30)
[2020-09-11] MEDS: ENOXAPARIN 30 MG/0.3 ML SQ SCH (23:50)
[2020-09-12] MEDS: METRONIDAZOLE 500mg IVPB 500 MG/100 ML BAG IV SCH ×4 (01:00→22:57)
[2020-09-12 01:02] LABS: Urine Appearance CLEAR; Urine Bilirubin NEGATIVE (NEG); Urine Blood NEGATIVE (NEG); Urine Glucose NEGATIVE (NEG); Urine Protein NEGATIVE (NEG); Urine Specific Gravity <=1.005 (1.005-1.030); Urine Urobilinogen 0.2 mg/dL (0.2-1.0); Urine pH 5.5 (5.0-7.0)
[2020-09-12 01:03] LABS: Urine Color YELLOW; Urine Microscopic Reflex ORDER UMIC
[2020-09-12 01:21] LABS: Urine Bacteria <20 /HPF (<20); Urine RBC NONE SEEN /HPF (NONE SEEN)
[2020-09-12] MEDS: MORPHINE 2 MG/ML SYR IV PRN ×2 (05:27→21:00)
--- NOTE | 2020-09-12 07:33 | HP ---
Date of Admission: 09/11/2020 Chief Complaint: Abdominal pain, vomiting, diarrhea. History Of Present Illness: This is an 84-year-old very pleasant female patient, who lives at [facility], came into office today with above-mentioned complaints. The patient started to have this abdominal pain, nausea, vomiting, and diarrhea yesterday and as of this morning, she has not had any more vomiting or diarrhea. She describes having multiple episodes of vomiting and diarrhea. Denies any fever. Has some diffuse abdominal pain. Has not had hardly anything to eat or drink except few bites of food and few sips of liquid in last 24-48 hours. No fall. No injury. She was brought into office today by her daughter and after she was evaluated, decision was made to admit her to hospital. Allergies: TO CODEINE AND PENICILLIN. Medications: Amlodipine 5 mg daily, aspirin 81 mg daily, docusate sodium 100 mg daily, Caltrate plus D 1 tablet by mouth daily, donepezil 10 mg daily, ferrous sulfate 325 mg daily, losartan 50 mg 2 times a day, metoprolol 25 mg 2 times a day, omeprazole 40 mg daily and simvastatin 40 mg daily in the evening. Review of Systems: GI: As mentioned above. All other systems reviewed and negative. Past Medical History: Significant for impaired memory, hypertension, hyperlipidemia, gastroesophageal reflux disease, diverticulosis, leg edema, osteoarthritis at multiple sites, osteopenia. Past Surgical History: Cataract surgery, cholecystectomy, exploratory laparotomy with sigmoid resection due to diverticulitis, stomach stapling, small bowel resection with anastomosis, . Family History: Father had cerebral aneurysm, diabetes and heart disease. Mother had heart disease and unknown type of cancer. Sister with diabetes and hypertension and brother also with diabetes and hypertension. Social History: Prior history of smoking not at present time. Use of alcohol. Physical Examination: Vital Signs: Blood pressure 138/80, pulse 93, temperature 96.6, respiratory rate 16, weight 152 pounds, height 58 inches. General: Awake, alert, oriented, not in distress. HEENT: Head atraumatic, normocephalic. Conjunctivae nonerythematous. Sclerae white. Mouth, no thrush or edema noted. Ears/Nose, no mass, lesion, discharge noted. Neck: Supple. No JVD, lymph nodes, bruit, thyromegaly noted. Lungs: Bilateral good equal air entry. Clear to auscultation. No rhonchi. No rales. Heart: Normal heart sounds, no murmur or gallop. Abdomen: Abdomen is not distended. Bowel sounds normal. No bruit. No guarding. No rigidity, but the patient has significant tenderness all over abdomen. No rebound tenderness. No hepatosplenomegaly. Extremities: No leg edema. No calf tenderness. Skin: No rash, ulcer, cellulitis. Lymphatics: No lymph node enlargement in neck, supraclavicular, infraclavicular region. Neuro: No focal neurological deficit. Chest: Unremarkable. External Genitalia: Deferred. Rectal: Deferred. Laboratory Data: White count 7.5, hemoglobin 12.4, platelets 163. Sodium 140, potassium 3.4, chloride 103, bicarb 29, BUN 30, creatinine 2.18, glucose 86. Liver function tests normal. TSH 1.45. Urinalysis; 1+ leukocyte esterase and 5-10 WBC, otherwise negative. Chest x-ray and CT abdomen result pending. Impression: 1. Acute diverticulitis. 2. Abdominal pain secondary to above. 3. Hypokalemia. 4. Acute kidney injury. 5. Volume depletion. 6. Hypertension. 7. Hyperlipidemia. 8. Osteoarthritis, multiple sites. 9. Gastroesophageal reflux disease. Plan: Admit patient to hospital for further evaluation and management of this problem. The patient is appropriate for inpatient and is expected to spend 2 midnights in hospital. We will go ahead and keep her n.p.o. except ice chips and water. Home medications will be continued per order. We will give DVT prophylaxis using Lovenox per order. IV fluid will be given for volume depletion and acute kidney injury problem. We will replace electrolytes per protocol. Repeat blood work tomorrow and empiric antibiotic Levaquin and Flagyl will be started. Details and plan of treatment discussed with the patient. Give her symptomatic treatment for abdominal pain, nausea and vomiting per order. We did talk about advance care planning with patient and her daughter and discussion included living will, out of hospital DNR. Details regarding advance care planning explained to both of them. In the event of cardiopulmonary arrest, patient has expressed her desire of not to have any CPR, defibrillation or ventilator support and will write DNR order in her hospital chart and patient and her daughter were told to get out of hospital DNR form ready, details about such form explained to her and will assist her to get such form ready. Total time spent on advance care planning discussion was 17 minutes. NEVIN/ANITA Voice ID: [id number]
[2020-09-12 08:04] LABS: Absolute Lymphocytes (CBC) 1.8 K/uL (0.7-4.9); Basophils % 0.6 % (0-1.3); Hematocrit 32.7 % (36.0-45.0); Lymphocytes % 39.3 % (15.3-44.8); MPV 10.8 fL (7.6-11.3); RBC Red Blood Cell Count 3.25 M/uL (3.86-4.86)
[2020-09-12 08:32] LABS: Magnesium 2.2 mg/dL (1.8-2.4); Potassium 3.7 mmol/L (3.5-5.1)
--- NOTE | 2020-09-12 08:42 | RAD REPORT ---
EXAM DESCRIPTION: RAD - Chest Pa And Lat (2 Views) - 09/12/2020 1:05 am CLINICAL HISTORY: Direct admit Chest pain. COMPARISON: Chest Pa And Lat (2 Views) dated 07/02/2018; Abdomen 1 View (KUB) dated 05/01/2018; Chest Single View dated 07/18/2017; ABDOMEN 1 VIEW KUB dated 09/27/2014 FINDINGS: The lungs are mildly emphysematous but clear. The heart is upper limit normal in size. No displaced fractures. IMPRESSION: Mild COPD.
[2020-09-12] MEDS: D5 0.9 NS 1,000 ML IV SCH (09:20)
--- NOTE | 2020-09-12 12:25 | RAD REPORT ---
EXAM DESCRIPTION: CT ABDOMEN PELVIS WITHOUT IV CONTRAST CLINICAL HISTORY: Diverticulitis TECHNIQUE: Contiguous axial images obtained through the abdomen and pelvis without IV contrast. Gretchen nal and sagittal reformatted images were provided. This exam was performed according to our departmental dose-optimization program, which includes autom ated exposure control, adjustment of the mA and/or kV according to patient size and/or use of iterati ve reconstruction technique. COMPARISON: 05/01/2018 FINDINGS: Lung bases: Clear Liver: Grossly unremarkable Gallbladder and biliary system: Prior cholecystectomy. Mild intrahepatic and extrahepatic biliary dil atation, mildly progressed. The common duct measures 11 mm in maximum diameter (previously 9 mm). Pancreas: Grossly unremarkable Spleen: Grossly unremarkable Adrenals: Stable bilateral low-density adrenal nodules both measuring 1.2 cm compatible with benign a denomas. Kidneys: 1.7 cm cyst at the lateral upper to mid pole on the left (previously 1 cm). No calculi. No h ydronephrosis. Bowel: Prior gastric bypass. Small bowel loops at and surrounding the anastomosis in the left anterio r abdomen appear mildly thickened. Moderate stool. Colonic diverticula without adjacent inflammatory change. No obstruction. Appendix: Normal caliber appendix. No findings to suggest acute appendicitis. Urinary bladder: Unremarkable Reproductive: Unremarkable as visualized Lymph nodes: No pathologically enlarged lymph nodes. Peritoneum: No focal fluid collection. No free air. Vessels: Mild to moderate atherosclerotic disease. No abdominal aortic aneurysm. Abdominal wall: Midline ventral abdominal wall incisional scar. Bones: Multilevel spondylosis. No acute fracture. IMPRESSION: 1. Findings which may be related to mild nonspecific enteritis. 2. Other findings as above. Electronically signed by: Demarco Das MD 09/12/2020 1:15 AM [employer] Due to temporary technical issues with the PACS/Fluency reporting system, reports are being signed by the in house radiologist without review as a courtesy to ensure prompt reporting. The interpreting r adiologist is fully responsible for the content of the report.
[2020-09-12] MEDS: ENOXAPARIN 30 MG/0.3 ML SQ SCH (16:50)
[2020-09-12] MEDS: ACETAMINOPHEN 500 MG TAB PO PRN (20:24)
[2020-09-12] MEDS: Levofloxacin500mg IV 500 MG/100 ML BAG IV SCH (20:24)
[2020-09-13] MEDS: D5 0.9 NS 1,000 ML IV SCH ×4 (00:28→23:38)
--- NOTE | 2020-09-13 01:34 | PN ---
Date of Progress Note: 09/12/2020 Subjective: Patient was seen this morning for followup. No new complaints or problems reported by patient, lying in bed, not in any distress, still has abdominal pain, but reports that it is better today than yesterday. Objective: Vital Signs: Reviewed. HEENT: Unremarkable Lungs: Clear to auscultation. Heart: Heart sounds normal. Abdomen: Soft. Bowel sounds normal. No guarding, rigidity, distention. Presence of significant tenderness in all the 4 quadrants of abdomen, but somewhat better today than yesterday. Extremities: No leg edema. Laboratory Data: CBC: Chemistry results from this morning reviewed. Impression: 1. Acute diverticulitis. 2. Hypokalemia. 3. Acute kidney injury. 4. Volume depletion. 5. Hypertension. 6. Enteritis. Plan: We will continue current medication. Continue current antibiotics, IV fluid. Renal function is better this morning compared to yesterday. Continue DVT prophylaxis. Physical therapy was consulted to help ambulate the patient, and we will start the patient on clear liquid diet. Possible discharge to go home tomorrow or day after tomorrow depending on patient's condition. NEVIN/MODL Voice ID: [id number] Report ID: [id number] SUMMER
[2020-09-13 06:21] LABS: Absolute Lymphocytes (CBC) 1.6 K/uL (0.7-4.9); Basophils % 0.9 % (0-1.3); Hematocrit 30.4 % (36.0-45.0); Lymphocytes % 46.4 % (15.3-44.8); MPV 10.9 fL (7.6-11.3); RBC Red Blood Cell Count 3.04 M/uL (3.86-4.86)
[2020-09-13 06:38] LABS: Magnesium 1.9 mg/dL (1.8-2.4); Potassium 3.8 mmol/L (3.5-5.1)
[2020-09-13] MEDS ORDERED: POTASSIUM CL SA 10 MEQ TAB PO ONE (09:00)
[2020-09-13] MEDS: METRONIDAZOLE 500mg IVPB 500 MG/100 ML BAG IV SCH ×3 (10:07→22:49)
[2020-09-13] MEDS: ENOXAPARIN 30 MG/0.3 ML SQ SCH (17:05)
[2020-09-13] MEDS: Levofloxacin500mg IV 500 MG/100 ML BAG IV SCH (20:07)
[2020-09-13] MEDS: METOPROLOL XL 25 MG TAB PO SCH (21:50)
[2020-09-13] MEDS: MORPHINE 2 MG/ML SYR IV PRN (21:54)
--- NOTE | 2020-09-13 23:07 | PN ---
Date of Progress Note: 09/13/2020 Subjective: The patient was seen this morning for followup. Denies any nausea or vomiting. Abdominal pain is better as she reports. Objective: Vital Signs: Reviewed. HEENT: Unremarkable. Lungs: Clear to auscultation. Heart: Sounds normal. Abdomen: Soft. Bowel sounds normal. No guarding, rigidity, or distention. Bowel sounds normal. Presence of tenderness in all the 4 quadrants of abdomen, but much better today than yesterday. Extremities: No leg edema. Laboratory Data: White count 3.5, hemoglobin 10.7, platelets 118. Sodium 143, potassium 3.8, chloride 111, bicarb 27, BUN 17, creatinine 1.55, glucose 89. Impression: 1. Acute diverticulitis. 2. Hypertension. 3. Anemia. 4. Volume depletion. 5. Acute kidney injury. 6. Enteritis. Plan: We will continue current medications. We will go ahead and continue IV fluid. Repeat blood work tomorrow. The patient will be on clear liquid diet today. The patient had diarrhea later during the course of today and stool culture and stool C difficile were ordered. I will see her tomorrow for followup. Ambulation was encouraged. NEVIN/MODL Voice ID: [id number] Report ID: [id number] SUMMER
[2020-09-14 06:48] LABS: Absolute Lymphocytes (CBC) 1.5 K/uL (0.7-4.9); Basophils % 0.9 % (0-1.3); Hematocrit 31.1 % (36.0-45.0); Lymphocytes % 45.3 % (15.3-44.8); MPV 11.1 fL (7.6-11.3); RBC Red Blood Cell Count 3.11 M/uL (3.86-4.86)
[2020-09-14 06:50] LABS: Magnesium 1.8 mg/dL (1.8-2.4); Potassium 3.8 mmol/L (3.5-5.1)
[2020-09-14] MEDS: METRONIDAZOLE 500mg IVPB 500 MG/100 ML BAG IV SCH ×2 (07:30→14:30)
[2020-09-14 08:18] LABS: Folic Acid, (Folate) > 20.0 ng/mL (3.1-17.5)
[2020-09-14] MEDS: METOPROLOL XL 25 MG TAB PO SCH (08:35)
[2020-09-14 08:41] VITALS: O2SAT 98
[2020-09-14] MEDS ORDERED: AMLODIPINE 5 MG TAB PO SCH (09:00)
[2020-09-14] MEDS ORDERED: ATORVASTATIN 20 MG TAB PO SCH (09:00)
[2020-09-14] MEDS ORDERED: DONEPEZIL HCL 5 MG TAB PO SCH (09:00)
[2020-09-14] MEDS ORDERED: ASPIRIN 81 MG CHEWABLE TABLET PO SCH (09:00)
[2020-09-14] MEDS ORDERED: POTASSIUM CL SA 10 MEQ TAB PO ONE (09:00)
[2020-09-14] MEDS ORDERED: MAGNESIUM SULFATE 1 gm IVPB 1 GM/100 ML BAG IV ONE (09:00)
[2020-09-14 11:50] LABS: C.diff Antigen/Toxin Ag neg : Tox neg (NEG : NEG)
[2020-09-14] MEDS: D5 0.9 NS 1,000 ML IV SCH (12:40)
[2020-09-14] MEDS: ENOXAPARIN 30 MG/0.3 ML SQ SCH (16:21)
[2020-09-14 16:46] VITALS: BP 145/64; TEMP 97.3
[2020-09-14] MEDS: ACETAMINOPHEN 500 MG TAB PO PRN (17:14)
--- NOTE | 2020-09-15 05:17 | DS ---
Date of Discharge: 09/14/2020 Disposition: The patient will be discharged to go home. Physical Examination: HEENT: Unremarkable. Lungs: Clear to auscultation. Heart: Sounds normal. Abdomen: Soft. Bowel sounds normal. No guarding, rigidity, distention. Minimum tenderness present in the left upper quadrant region and right upper quadrant, overall significantly better than before . Bowel sounds normoactive. Extremities: No leg edema. Laboratory Data: Upon admission, white count 7.5, hemoglobin 12.4, platelets 163. Today, white coun t 3.4, hemoglobin 10.7, platelets 120. Today, sodium 143, potassium 3.8, chloride 111, bicarb 28, BU N 12, creatinine 1.4. Upon admission; sodium 140, potassium 3.4, chloride 103, bicarb 29, BUN 30, cr eatinine 2.18, glucose 86. Liver function tests normal. Lipase 130s. Stool Clostridium difficile n egative. TSH 1.45. B12 and folic acid level normal. Hospital Course: 84-year-old female patient admitted to the hospital with complaints of abdominal pa in, nausea, vomiting, and diarrhea. Please see dictated H and P for more information. After patient was evaluated at office, she was admitted to the hospital. The patient was started on IV fluid and initially she was kept n.p.o. Home medications were continued. IV antibiotics were started. The magui patel's condition overall improved. She was started on clear liquid diet and as of today we have adv anced her diet to soft diet and this afternoon after she tolerates her soft diet, we will plan to dis charge her. Chest x-ray did not find any acute findings and CAT of the abdomen showed changes of ent eritis. Final Diagnoses: 1.Acute diverticulitis. 2.Enteritis. 3.Acute kidney injury. 4.Volume depletion. 5.Hypokalemia. 6.Anemia. 7.Hypertension. 8.Hyperlipidemia. 9.Osteoarthritis, multiple sites. 10.Gastroesophageal reflux disease. 11.Thrombocytopenia. Discharge Medications And Instructions: 1.Continue all prior home medications. 2.Levaquin 500 mg p.o. daily for 1 week. 3.Flagyl 500 mg p.o. 3 times a day for 1 week. 4.Follow up at my office next week and patient to call office for appointment. NEVIN/MODL Voice ID: [id number] Report ID: [id number]
== END 2020-09-14 19:07 | disposition home or self-care (01) | DRG 392 ==
LOC: 2ND 20:06
PROVIDERS: ADMIT Internal Medicine; ATTEND Internal Medicine
DX: K57.92 Diverticulitis of intestine, part unspecified, without perforation or abscess without bleeding (principal); N17.9 Acute kidney failure, unspecified; K21.9 Gastro-esophageal reflux disease without esophagitis; E87.6 Hypokalemia; E78.5 Hyperlipidemia, unspecified; E86.9 Volume depletion, unspecified; M19.90 Unspecified osteoarthritis, unspecified site; K52.9 Noninfective gastroenteritis and colitis, unspecified; D69.6 Thrombocytopenia, unspecified; I10 Essential (primary) hypertension; Z88.5 Allergy status to narcotic agent; Z88.1 Allergy status to other antibiotic agents; Z79.82 Long term (current) use of aspirin; Z79.899 Other long term (current) drug therapy; Z66 Do not resuscitate; Z90.49 Acquired absence of other specified parts of digestive tract; Z20.828 Contact with and (suspected) exposure to other viral communicable diseases
CPT/HCPCS: 36415; 71046; 74176; 80048; 80053; 81003; 81015; 82607; 82746; 83690; 83735; 84443; 85025; 87045; 87046; 87086; 87088; 87324; 87449; 97116; 97161; J1650; J2270; J3475; J7042; U0002

== ENCOUNTER 2021-05-03 19:47 | Inpatient (IN) | payer OTHER ==
[2021-05-03 21:01] LABS: Basophils % 0.3 % (0-1.3); Hematocrit 39.8 % (36.0-45.0); Lymphocytes % 11.5 % (15.3-44.8); MPV 10.5 fL (7.6-11.3); RBC Red Blood Cell Count 4.01 M/uL (3.86-4.86)
[2021-05-03 21:22] LABS: Albumin 4.1 g/dL (3.4-5.0); Bilirubin Direct 0.2 mg/dL (0-0.2); Bilirubin Total 0.6 mg/dL (0.2-1.0); Potassium 4.6 mmol/L (3.5-5.1); Protein, Total 8.1 g/dL (6.4-8.2)
[2021-05-04] MEDS ORDERED: FAMOTIDINE 20 MG/2 ML VIAL IV ONE (00:01)
[2021-05-04] MEDS ORDERED: ONDANSETRON 4 MG/2 ML VIAL ONE (00:01)
[2021-05-04] MEDS ORDERED: NA CHLORIDE 0.9% 500 ML ONE (00:01)
[2021-05-04] MEDS ORDERED: MORPHINE 2 MG/ML SYR ONE ×2 (00:01→04:43)
--- NOTE | 2021-05-04 01:56 | ER ---
Nurse's Notes [facility] Name: Danielle Najera Age: 85 yrs Sex: Female : 1935 Arrival Date: 05/03/2021 Time: 20:03 Bed 20 Private MD: Diagnosis: Small Bowel Obstruction Presentation: 05/03 20:37 Chief complaint: Patient states: Abdominal pain and nausea. Pt stated she has kg diverticulitis and ate a peanut karina yesterday and thinks it upset her stomach. Coronavirus screen: Client denies travel out of the [place] in the last 14 days. At this time, unable to obtain information related to travel outside the [place] At this time, the client does not indicate any symptoms associated with coronavirus-19. Ebola Screen: Patient negative for fever greater than or equal to 101.5 degrees Fahrenheit, and additional compatible Ebola Virus Disease symptoms Patient denies exposure to infectious person. Patient denies travel to an Ebola-affected area in the 21 days before illness onset. Initial Sepsis Screen: Does the patient meet any 2 criteria? No. Patient's initial sepsis screen is negative. Does the patient have a suspected source of infection? No. Patient's initial sepsis screen is negative. Risk Assessment: Do you want to hurt yourself or someone else? Patient reports no desire to harm self or others. Onset of symptoms was May 03, 2021. 20:37 Method Of Arrival: Wheelchair kg 20:37 Acuity: CANDIE 3 kg Triage Assessment: 20:39 General: Appears in no apparent distress. Behavior is calm, cooperative, appropriate kg for age, quiet. Pain: Complains of pain in abdomen. GI: Abdomen is round distended, Reports nausea. Historical: - Allergies: 20:39 PENICILLINS; kg 20:39 Codeine; kg - PMHx: 20:39 High Cholesterol; Hypertension; Diverticulitis; kg - PSHx: 20:39 bowel resection; stomach stapled and banded and reversed; section; kg Cholecystectomy; - Immunization history:: Adult Immunizations up to date, Client reports receiving the 2nd dose of the Covid vaccine, Date received: January 2021. - Social history:: Smoking status: Patient denies any tobacco usage or history of. Screenin:42 Abuse screen: Denies threats or abuse. Denies injuries from another. Nutritional kg screening: No deficits noted. Tuberculosis screening: No symptoms or risk factors identified. Fall Risk None identified. No fall in past 12 months (0 pts). No secondary diagnosis (0 pts). IV access (20 points). Ambulatory Aid- None/Bed Rest/Nurse Assist (0 pts). Gait- Normal/Bed Rest/Wheelchair (0 pts) Mental Status- Oriented to own ability (0 pts). Total Lucero Fall Scale indicates No Risk (0-24 pts). Assessment: 23:10 General: Appears in no apparent distress. Behavior is calm, cooperative, appropriate ea for age. Pain: Complains of pain in abdomen. Neuro: No deficits noted. Cardiovascular: Patient's skin is warm and dry. Respiratory: Airway is patent Respiratory effort is even, unlabored, Respiratory pattern is regular, symmetrical. Derm: Skin is pink, warm \T\ dry. 05/04 01:07 Reassessment: Daughter (Dona Simmons) [phone]. ea 02:06 Reassessment: Patient and/or family updated on plan of care and expected duration. Pain ea level reassessed. Patient is alert, oriented x 3, equal unlabored respirations, skin warm/dry/pink. Pt admitted to ED hold. 10:00 GI: ap3 Vital Signs: 05/03 20:37 BP 162 / 69; Pulse 72; Resp 20; Temp 97.9(O); Pulse Ox 100% on R/A; Weight 69.35 kg kg (R); Height 4 ft. 9 in. (144.78 cm); Pain 9/10; 05/04 01:30 BP 160 / 68; Pulse 79; Resp 18; Pulse Ox 98% ; ea 05/03 20:37 Body Mass Index 33.09 (69.35 kg, 144.78 cm) kg ED Course: 05/03 20:03 Patient arrived in ED. ds1 20:39 Triage completed. kg 20:42 Arm band placed on left wrist. kg 20:42 Patient has correct armband on for positive identification. kg 23:02 Hansa Lion, ROVERTO is Primary Nurse. ea 23:04 Jay South MD is Attending Physician. mh7 23:45 CT Abd/Pelvis - Without Contrast In Process Unspecified. EDMS 05/04 01:13 No provider procedures requiring assistance completed. ea 01:35 Patient admitted, IV remains in place. ea 01:56 Rox Aguayo MD is Hospitalizing Provider. mh7 06:[address] Massey with Dr. South for patient consultation. tt3 06:[address] Feliz with for patient consultation. tt3 Administered Medications: 00:17 Drug: morphine 2 mg Route: IVP; Site: right hand; ea 02:07 Follow up: Response: No adverse reaction ea 00:17 Drug: Zofran (Ondansetron) 4 mg Route: IVP; Site: right hand; ea 02:07 Follow up: Response: No adverse reaction ea 00:17 Drug: Pepcid (famotidine) 20 mg Route: IVP; Site: right hand; ea 02:06 Follow up: Response: No adverse reaction ea 00:18 Drug: NS 0.9% 500 ml Route: IV; Rate: bolus; Site: right antecubital; ea 02:07 Follow up: Response: No adverse reaction; IV Status: Completed infusion; IV Intake: ea 500ml 02:50 Drug: Rocephin (cefTRIAXone) 1 grams Route: IV; Rate: per protocol; Site: right hand; ea 03:59 Follow up: Response: No adverse reaction; IV Status: Completed infusion; IV Intake: 10mlea 03:07 Drug: Flagyl (metroNIDAZOLE) 500 mg Volume: 100 ml; Route: IVPB; Rate: 200 ml/hr; ea Infused Over: 30 mins; Site: right hand; 04:00 Follow up: Response: No adverse reaction; IV Status: Completed infusion ea 04:19 Drug: morphine 2 mg Route: IVP; Site: right hand; ea Intake: 02:07 IV: 500ml; Total: 500ml. ea 03:59 IV: 10ml; Total: 510ml. ea Outcome: 01:35 Admitted to ER Hold. Please see [facility] for further documentation. ea 01:35 Condition: stable 01:35 Instructed on the need for admit, Demonstrated understanding of instructions. 01:56 Decision to Hospitalize by Provider. mh7 10:01 Patient left the ED. ap3 Signatures: Dispatcher [facility] Yane Bates Elena, RN RN ea Prokisch, Amanda, RN RN ap3 Jay South MD MD mh7 Ion Jones tt3 Samira Tadeo, RN RN kg
--- NOTE | 2021-05-04 01:56 | EDPHYS ---
Physician Documentation [facility] Name: Danielle Najera Age: 85 yrs Sex: Female : 1935 Arrival Date: 05/03/2021 Time: 20:03 Bed 20 Private MD: ED Physician Jay South HPI: 05/03 23:05 This 85 yrs old Female presents to ER via Wheelchair with complaints of mh7 Abdominal Swelling. 23:05 The patient presents with abdominal pain that is diffuse, abdominal distention that is mh7 diffuse. Onset: The symptoms/episode began/occurred this morning, today. The symptoms do not radiate. Associated signs and symptoms: Pertinent positives: diarrhea, nausea, Pertinent negatives: anorexia, blood in stools, chest pain, constipation, dysuria, fever, headache, hematuria, palpitations, shortness of breath, vaginal discharge, vomiting, vomiting blood. The symptoms are described as intermittent, vague, waxing/waning. Modifying factors: The symptoms are alleviated by nothing, the symptoms are aggravated by touching the area. Severity of pain: At its worst the pain was moderate today, in the emergency department the pain is unchanged. Historical: - Allergies: 20:39 PENICILLINS; kg 20:39 Codeine; kg - PMHx: 20:39 High Cholesterol; Hypertension; Diverticulitis; kg - PSHx: 20:39 bowel resection; stomach stapled and banded and reversed; section; kg Cholecystectomy; - Immunization history:: Adult Immunizations up to date, Client reports receiving the 2nd dose of the Covid vaccine, Date received: January 2021. - Social history:: Smoking status: Patient denies any tobacco usage or history of. ROS: 23:05 Constitutional: Negative for fever, chills, and weight loss, Eyes: Negative for injury, mh7 pain, redness, and discharge, ENT: Negative for injury, pain, and discharge, Neck: Negative for injury, pain, and swelling, Cardiovascular: Negative for chest pain, palpitations, and edema, Respiratory: Negative for shortness of breath, cough, wheezing, and pleuritic chest pain, Back: Negative for injury and pain, : Negative for injury, bleeding, discharge, and swelling, MS/Extremity: Negative for injury and deformity, Skin: Negative for injury, rash, and discoloration, Neuro: Negative for headache, weakness, numbness, tingling, and seizure, Psych: Negative for depression, anxiety, suicide ideation, homicidal ideation, and hallucinations, Allergy/Immunology: Negative for hives, rash, and allergies, Endocrine: Negative for neck swelling, polydipsia, polyuria, polyphagia, and marked weight changes, Hematologic/Lymphatic: Negative for swollen nodes, abnormal bleeding, and unusual bruising. Exam: 23:05 Constitutional: This is a well developed, well nourished patient who is awake, alert, mh7 and in no acute distress. Head/Face: Normocephalic, atraumatic. Eyes: Pupils equal round and reactive to light, extra-ocular motions intact. Lids and lashes normal. Conjunctiva and sclera are non-icteric and not injected. Cornea within normal limits. Periorbital areas with no swelling, redness, or edema. Neck: Trachea midline, no thyromegaly or masses palpated, and no cervical lymphadenopathy. Supple, full range of motion without nuchal rigidity, or vertebral point tenderness. No Meningismus. Chest/axilla: Normal chest wall appearance and motion. Nontender with no deformity. No lesions are appreciated. Cardiovascular: Regular rate and rhythm with a normal S1 and S2. No gallops, murmurs, or rubs. Normal PMI, no JVD. No pulse deficits. Respiratory: Lungs have equal breath sounds bilaterally, clear to auscultation and percussion. No rales, rhonchi or wheezes noted. No increased work of breathing, no retractions or nasal flaring. 23:05 Back: No spinal tenderness. No costovertebral tenderness. Full range of motion. Skin: Warm, dry with normal turgor. Normal color with no rashes, no lesions, and no evidence of cellulitis. MS/ Extremity: Pulses equal, no cyanosis. Neurovascular intact. Full, normal range of motion. Neuro: Awake and alert, GCS 15, oriented to person, place, time, and situation. Cranial nerves II-XII grossly intact. Motor strength 5/5 in all extremities. Sensory grossly intact. Cerebellar exam normal. Normal gait. Psych: Awake, alert, with orientation to person, place and time. Behavior, mood, and affect are within normal limits. 23:05 Abdomen/GI: Inspection: scar(s), are noted in the umbilical area, Bowel sounds: normal, in all quadrants, Palpation: moderate abdominal tenderness, in all quadrants, mass, is not appreciated, rebound tenderness, is not appreciated, voluntary guarding, is not appreciated, involuntary guarding, is not appreciated, no appreciated organomegaly, Rectal exam: the exam is deferred, because of patient request, Indicators: McBurney's point is not tender, Saenz's sign is negative, Rovsing's sign is negative, Obturator sign is negative, Psoas sign is negative, Liver: no appreciated palpable abnormalities, Hernia: not appreciated. Vital Signs: 20:37 BP 162 / 69; Pulse 72; Resp 20; Temp 97.9(O); Pulse Ox 100% on R/A; Weight 69.35 kg kg (R); Height 4 ft. 9 in. (144.78 cm); Pain 06/21; 05/04 01:30 BP 160 / 68; Pulse 79; Resp 18; Pulse Ox 98% ; ea 05/03 20:37 Body Mass Index 33.09 (69.35 kg, 144.78 cm) kg MDM: 01:54 Differential diagnosis: bowel obstruction, diverticulitis, gastritis, gastroesophageal mh7 reflux disease, non-specific abd pain, pancreatitis, Peptic Ulcer Disease, urinary tract infection. Data reviewed: vital signs, nurses notes, lab test result(s), CBC, electrolytes, urinalysis, radiologic studies, CT scan. Data interpreted: Pulse oximetry: on room air is 100 %. Interpretation: normal. Counseling: I had a detailed discussion with the patient and/or guardian regarding: the historical points, exam findings, and any diagnostic results supporting the discharge/admit diagnosis, the presence of at least one elevated blood pressure reading (>120/80) during this emergency department visit, lab results, radiology results, the need for further work-up and treatment in the hospital. Response to treatment: the patient's symptoms have markedly improved after treatment. 01:56 Patient medically screened. mh7 05/03 20:43 Order name: Basic Metabolic Panel kg 05/03 20:43 Order name: CBC with Diff; Complete Time: 23:06 kg 05/03 20:43 Order name: Hepatic Function kg 05/03 20:43 Order name: Lipase kg 05/03 20:44 Order name: Basic Metabolic Panel; Complete Time: 23:06 EDMS 05/03 20:44 Order name: Liver (Hepatic) Function; Complete Time: 23:06 EDMS 05/03 20:44 Order name: Lipase; Complete Time: 23:06 EDMS 05/04 02:22 Order name: Basic Metabolic Panel [facility] 05/04 02:22 Order name: Basic Metabolic Panel [facility] 05/04 02:22 Order name: CBC with Automated Diff [facility] 05/04 02:22 Order name: CBC with Automated Diff [facility] 05/04 02:22 Order name: Lipase [facility] 05/04 02:22 Order name: Lipase [facility] 05/04 02:22 Order name: Liver (Hepatic) Function [facility] 05/03 20:43 Order name: IV Saline Lock; Complete Time: 23:15 kg 05/03 20:43 Order name: Labs collected and sent; Complete Time: 23:15 kg 05/03 23:20 Order name: CT Abd/Pelvis - Without Contrast [facility] 05/04 02:22 Order name: CONS Physician Consult [facility] 05/04 02:22 Order name: NPO [facility] 05/04 02:22 Order name: Liver (Hepatic) Function [facility] 05/04 04:33 Order name: COVID-19 : Document "Date of Symptom Onset" if Symptomatic. 05/04 04:46 Order name: CORONAVIRUS [facility] 05/04 05:40 Order name: SARS-COV-2 RT PCR; Complete Time: 06:27 EDMS Administered Medications: 00:17 Drug: morphine 2 mg Route: IVP; Site: right hand; ea 02:07 Follow up: Response: No adverse reaction ea 00:17 Drug: Zofran (Ondansetron) 4 mg Route: IVP; Site: right hand; ea 02:07 Follow up: Response: No adverse reaction ea 00:17 Drug: Pepcid (famotidine) 20 mg Route: IVP; Site: right hand; ea 02:06 Follow up: Response: No adverse reaction ea 00:18 Drug: NS 0.9% 500 ml Route: IV; Rate: bolus; Site: right antecubital; ea 02:07 Follow up: Response: No adverse reaction; IV Status: Completed infusion; IV Intake: ea 500ml 02:50 Drug: Rocephin (cefTRIAXone) 1 grams Route: IV; Rate: per protocol; Site: right hand; ea 03:59 Follow up: Response: No adverse reaction; IV Status: Completed infusion; IV Intake: 10mlea 03:07 Drug: Flagyl (metroNIDAZOLE) 500 mg Volume: 100 ml; Route: IVPB; Rate: 200 ml/hr; ea Infused Over: 30 mins; Site: right hand; 04:00 Follow up: Response: No adverse reaction; IV Status: Completed infusion ea 04:19 Drug: morphine 2 mg Route: IVP; Site: right hand; ea Disposition Summary: 05/04/21 01:56 Hospitalization Ordered Hospitalization Status: Inpatient Admission [facility] Provider: Rox Aguayo Condition: Stable [facility] Problem: an acute exacerbation [facility] Symptoms: have improved [facility] Bed/Room Type: Standard [facility] Location: Telemetry/MedSurg (Inpatient)(05/04/21 08:59) Room Assignment: [facility](05/04/21 08:59) Diagnosis - Small Bowel Obstruction [facility] Forms: - Medication Reconciliation Form [facility] - SBAR form [facility] Signatures: Dispatcher [employer] Lianne Mitchell, ROVERTO RN Hansa Bucio RN Tiffany Bolton ea, Maurice, MD MD Samira Martinez RN RN kg Corrections: (The following items were deleted from the chart) 02:40 01:56 Telemetry/MedSurg (Inpatient) [facility] cg 02:40 01:56 [facility] cg 08:59 02:40 [facility] ER HOLD cg eb 08:59 02:40 ERHOLD- cg eb
[2021-05-04] MEDS ORDERED: ACETAMINOPHEN 500 MG TAB PO PRN (02:18)
[2021-05-04] MEDS ORDERED: ONDANSETRON 4 MG/2 ML VIAL IV PRN (02:18)
[2021-05-04] MEDS: D5 0.45 NS 1,000 ML IV SCH ×3 (03:00→21:07)
[2021-05-04] MEDS ORDERED: METRONIDAZOLE 500mg IVPB 500 MG/100 ML BAG IV ONE (03:02)
[2021-05-04] MEDS ORDERED: CEFTRIAXONE/SWI 1gm 1 GM/10 ML SYR ONE (03:02)
[2021-05-04 04:28] VITALS: BMI 33.0
[2021-05-04] MEDS ORDERED: D5 0.45 NS 1,000 ML IV ONE (09:10)
[2021-05-04] MEDS: Levofloxacin 250mg IV 250 MG/50 ML BAG IV SCH (10:21)
[2021-05-04] MEDS: MORPHINE 4 MG/ML SYR IV PRN ×3 (10:31→21:08)
[2021-05-04] MEDS: ONDANSETRON 4 MG/2 ML VIAL IV PRN ×2 (10:31→16:29)
[2021-05-04] MEDS: HEPARIN 5000 UNIT/ML 1 ML VIAL SQ SCH ×2 (10:31→21:16)
[2021-05-04 10:53] LABS: Absolute Lymphocytes (CBC) 1.2 K/uL (0.7-4.9); Basophils % 0.3 % (0-1.3); Lymphocytes % 16.6 % (15.3-44.8); MPV 10.4 fL (7.6-11.3); RBC Red Blood Cell Count 3.53 M/uL (3.86-4.86)
[2021-05-04 11:04] LABS: Potassium 4.2 mmol/L (3.5-5.1)
[2021-05-04] MEDS: METRONIDAZOLE 500mg IVPB 500 MG/100 ML BAG IV SCH ×2 (11:53→16:29)
--- NOTE | 2021-05-04 12:27 | RAD REPORT ---
EXAM DESCRIPTION: CT - Abdomen Pelvis Wo Contrast - 05/04/2021 6:42 am ADDENDUM #1 These critical findings were discussed with Dr. Jay South on 05/04/2021 at 12:15 AM central time. Electronically signed by: Zina Lylekunal CHONG 05/04/2021 12:15 AM CDT End of Addendum EXAM DESCRIPTION: CT abdomen and pelvis without intravenous contrast CLINICAL HISTORY: 85 years Female Abd pain;Nausea / vomiting TECHNIQUE: Axial CT imaging of the abdomen and pelvis was performed without oral or intravenous cont rast. Sagittal and coronal reconstructed images were then performed. The CT study is performed acco rding to ALARA (as low as reasonably achievable) or ALARA/IMAGE GENTLY, with automatic adjustment of mA and/or kV according to patient size. Performed on: 05/03/2021 at 11:42 PM COMPARISON: 09/12/2020. FINDINGS: Lung bases: The lung bases are clear. Liver: The liver is normal in size and configuration. No focal hepatic abnormalities are appreciated on this unenhanced scan. Liver attenuation is within normal limits. Spleen: The spleen is normal is size, configuration and attenuation. No focal splenic abnormalities a re appreciated on this unenhanced scan. Gallbladder and bile duct: The gallbladder is surgically absent. There is no biliary ductal dilatat ion. Pancreas: The pancreas is grossly normal in size and configuration. Adrenal Glands: There is stable mild fullness of the adrenal glands. Kidneys: The kidneys are normal in size and configuration. There is no evidence of hydronephrosis. Th ere is no evidence of nephrolithiasis. There is a stable left renal cortical cyst measuring approxima tely 1.6 cm. Stomach: There are remote postsurgical changes of the stomach consistent with prior gastric bypass tirado rgery. There is no definite hiatal hernia. Bowel: There are a few dilated fluid-filled small bowel loops in the left hemiabdomen and there is tirado rrounding mesenteric inflammation and edema as well as a small volume of free fluid in the pelvis. Fi ndings are concerning for a mid small bowel obstruction. There is moderate fecal residue scattered th roughout the colon. There is scattered colonic diverticulosis. There appears to be suture line in the region of the rectosigmoid junction. Appendix: The appendix is normal. Free air: There is no evidence of free air. Free fluid: There is a small volume of free fluid in the pelvis. Vasculature: The aorta is normal in caliber and contour. There are moderate atherosclerotic calcifica tions along the abdominal aorta. The inferior vena cava is grossly unremarkable. Lymphadenopathy: No pathologic lymphadenopathy is identified. Bladder: The bladder is partially distended and smooth in contour. Reproductive: The uterus is grossly within normal limits. Bones: No acute osseous abnormalities are identified. There are moderate degenerative changes of the thoracolumbar spine. There is dextroscoliosis of the lumbar spine similar to the prior study. There a re multilevel vacuum discs and there is advanced degenerative disc disease at L2-L3 and L3-L4. Soft tissues: No acute soft tissue abnormalities are identified. IMPRESSION: 1. CT findings concerning for a mid small bowel obstruction. There are a few dilated f luid-filled small bowel loops in the left hemiabdomen with surrounding mesenteric inflammation and ed jude as well as a small volume of free fluid in the pelvis. 2. Remote gastric bypass surgery. 3. Remote cholecystectomy. 4. Scattered colonic diverticulosis. 5. Stable mild fullness of the adrenal glands. 6. Stable left renal cortical cyst. 7. Stable degenerative changes of the skeletal and vascular structures. Electronically signed by: Zina Potter DO 05/04/2021 12:12 AM CDT Due to temporary technical issues with the PACS/Fluency reporting system, reports are being signed by the in house radiologists without review as a courtesy to insure prompt reporting. The interpreting radiologist is fully responsible for the content of the report.
--- NOTE | 2021-05-04 12:48 | RAD REPORT ---
EXAM DESCRIPTION: Evin Single View05/04/2021 12:03 pm CLINICAL HISTORY: Device placement nasogastric tube placement IMPRESSION: A nasogastric tube has been placed with its tip 5.5 centimeters into the stomach
--- NOTE | 2021-05-04 13:09 | HP ---
Date of Admission: 05/04/2021 Chief Complaint: Abdominal pain, nausea, vomiting. History Of Present Illness: This is an 85-year-old female patient, who came into emergency room with few days history of abdominal pain, nausea, vomiting, and yesterday evening, she came into ER with w orsening of symptoms. Denies any fever, chills. Denies any hematemesis. No constipation. No diarr hea or bleeding per rectum. After she was evaluated in the ER, she was admitted to the hospital with small-bowel obstruction. This morning when I saw her, she was still in the emergency room. Denies any chest pain or shortness of breath. Allergies: TO CODEINE CAUSING ITCHING AND PENICILLIN CAUSING SWELLING AT THE INJECTION SITE. Medications: Amlodipine 5 mg daily, aspirin 81 mg daily, Caltrate plus D 1 tablet by mouth daily, do cusate sodium 100 mg daily, donepezil 10 mg daily, ferrous sulfate 325 mg daily, losartan 50 mg 2 phylicia es a day, metoprolol tartrate 25 mg 2 times a day, omeprazole 40 mg daily, simvastatin 40 mg daily in the evening. Review of Systems: GI: As mentioned above. All other systems reviewed and negative. Past Medical History: Significant for mild cognitive impairment, hypertension, hyperlipidemia, gastr oesophageal reflux disease, diverticulosis, chronic kidney disease stage 3B, osteoarthritis at multip le sites, osteopenia. Past Surgical History: Cataract surgery, cholecystectomy, exploratory laparotomy with sigmoid colon resection, stomach stapling, small-bowel resection with anastomosis and . Social History: Prior history of smoking, not at present time. Use of alcohol negative. Family History: Father , had cerebral aneurysm, diabetes, heart disease. Mother , had heart disease and unknown type of cancer. Brother had hypertension, diabetes. Sister had also hypertensi on and diabetes. Physical Examination: Vital signs: This morning, temperature 97.8, pulse 70, respiratory rate 17, blood pressure 140/48, o xygen saturation 94%, height 4 feet 9 inches, weight 152 pounds. General: Awake, alert, oriented, not in distress. HEENT: Head atraumatic, normocephalic. Conjunctivae nonerythematous. Sclerae white. Mouth, no thr ush or edema noted. Ears/Nose, no mass, lesion, discharge noted. Neck: Supple. No JVD, lymph nodes, bruit, thyromegaly noted. Lungs: Bilateral good equal air entry. Clear to auscultation. No rhonchi. No rales. Heart: Normal heart sounds, no murmur or gallop. Abdomen: Soft. Bowel sounds present. The patient has significant tenderness scattered all over abd omen with presence of guarding. No rebound tenderness. Abdomen appears slightly distended. Extremities: No leg edema. No calf tenderness. Skin: No rash, ulcer, cellulitis. Lymphatics: No lymph node enlargement in neck, supraclavicular, infraclavicular region. Neuro: No focal neurological deficit. Chest: Unremarkable. External Genitalia: Deferred. Rectal: Deferred. Laboratory Data: White count 8.7, hemoglobin 13.7, platelets 162. Sodium 141, potassium 4.6, chlori de 107, bicarb 27, BUN 17, creatinine 1.70, estimated GFR 29, glucose 118. Liver function tests unre markable. Lipase . COVID-19 test negative. CAT scan of abdomen was reported as presence of small-bowel obstruction. Impression: 1.Small-bowel obstruction. 2.Chronic kidney disease stage 3B. 3.Hypertension. 4.Hyperlipidemia. 5.Diverticulosis. 6.Gastroesophageal reflux disease. 7.Osteoarthritis, multiple sites. Plan: Admit patient to hospital for further evaluation and management of this problem. The patient is appropriate for inpatient and is expected to spend 2 midnights in hospital. We will continue to k eep her n.p.o. IV fluid will be continued. We will start her on IV antibiotics. NG tube will be pl aced to low intermittent suction and we will consult general surgeon. At this time, there are no sig ns of peritonitis. We will continue to follow. We will see her tomorrow for a followup. NEVIN/MODL Voice ID: [id number]
--- NOTE | 2021-05-04 16:12 | CON ---
Date of Consultation: 05/04/2021 Reason For Service: Abdominal pain, nausea, vomiting. History Of Present Illness: This is the case of an 85-year-old patient, comes to us with abdominal p ain, nausea, vomiting, a day of duration. Before that, she was eating some cabbage. She has episode like this before, improved on its own. During the admission, she was found to have something that m ay be indicative of a small bowel obstruction. The patient was admitted and a surgical consult was o btained. She denies any dysuria, hematuria, hematochezia, melena. Denies any recent traveling out o f the country. Denies any family member sick at home. The patient has a past surgical history with sigmoid colon resection, stomach stapling, small bowel resection with anastomosis. Allergies: CODEINE, PENICILLIN. Medications: Include aspirin. Past Medical History: Hypertension, hyperlipidemia, chronic kidney disease, osteopenia. Past Surgical History: As above including also cataract surgery, cholecystectomy. Social History: She does not smoke. She does not drink alcohol. Family History: Diabetes and heart disease. Review of Systems: Ten points otherwise unremarkable. See above. Physical Examination: General: The patient is awake, alert. HEENT: Pupils are equal and reactive. Anicteric. Neck: Supple. Chest: Clear. Abdomen: Soft and depressible. No guarding or rebound. No peritoneal signs. Mild generalized tend erness. Extremities: Good capillary refill. Laboratory Data: CAT scan of the abdomen and pelvis interpreted by Dr. Jacob as mild inflammation of the small bowel, a few dilated loops with mild inflammation of the mesentery unknown etiology, his tory of gastric bypass, cholecystectomies, multiple surgeries. Assessment: It is an 85-year-old patient with multiple surgeries in the past, right now with what lo oks like maybe small bowel obstruction. The patient is started with NG tube, bowel rest, ambulation. If she does not improve and obstruction does not resolve, she understands the options of laparotomy possible bowel resection, possible ostomy with benefits, alternatives, and risks including, but not limited to infection, bleeding, damage to adjacent structures, anesthesia complications, adhesions, h ernias, [place], and even . HM/MODL Voice ID: [id number] Report ID: [id number]
[2021-05-05] MEDS: METRONIDAZOLE 500mg IVPB 500 MG/100 ML BAG IV SCH ×3 (00:23→16:29)
[2021-05-05] MEDS: DIPHENHYDRAMINE 50 MG/ML VIAL IV PRN ×2 (00:50→22:24)
[2021-05-05] MEDS: D5 0.45 NS 1,000 ML IV SCH ×3 (03:43→19:00)
[2021-05-05] MEDS: MORPHINE 4 MG/ML SYR IV PRN ×3 (03:46→20:28)
[2021-05-05 06:18] LABS: Absolute Lymphocytes (CBC) 1.9 K/uL (0.7-4.9); Basophils % 0.5 % (0-1.3); Hematocrit 30.2 % (36.0-45.0); MPV 10.4 fL (7.6-11.3); RBC Red Blood Cell Count 3.01 M/uL (3.86-4.86)
[2021-05-05 06:31] LABS: Magnesium 1.8 mg/dL (1.8-2.4); Potassium 4.1 mmol/L (3.5-5.1)
[2021-05-05] MEDS: Levofloxacin 250mg IV 250 MG/50 ML BAG IV SCH (08:24)
[2021-05-05] MEDS: HEPARIN 5000 UNIT/ML 1 ML VIAL SQ SCH ×2 (08:24→20:29)
[2021-05-05] MEDS ORDERED: MAGNESIUM SULFATE 1 gm IVPB 1 GM/100 ML BAG IV ONE (11:30)
--- NOTE | 2021-05-05 12:34 | PN ---
Date of Progress Note: 05/05/2021 Subjective: The patient was seen this morning for followup. She was lying in bed, not in any distre ss. Reports that her pain is a little better today than yesterday. She has NG tube draining dark gr eenish-colored liquid. Objective: Vital Signs: Reviewed. HEENT: Examination unremarkable. Lungs: Clear to auscultation. Heart: Heart sounds normal. Abdomen: Soft. Bowel sounds present with tenderness scattered all over her abdomen, unchanged from yesterday. Extremities: No leg edema. Laboratory Data: White count 5.3, hemoglobin 10.5, platelets . Sodium 140, potassium 4.1, chloride 109, bicarb 28, BUN 14, creatinine 1.51, glucose 106, magnesium . Impression: 1.Small bowel obstruction. 2.Hypertension. 3.Chronic kidney disease, stage IIIB. Plan: We will continue current medications. Continue IV fluid, IV antibiotics, NG tube to low inter mittent suction, and continue to follow with general surgeon. We will repeat abdominal x-ray tomorro w. Continue current DVT prophylaxis and I will see her tomorrow for followup. The patient has not h ad any bowel movement or is not passing any flatus. NEVIN/MODL Voice ID: [id number] Report ID: [id number]
--- NOTE | 2021-05-05 13:05 | PN ---
Date of Progress Note: 05/05/2021 Diagnosis: Small bowel obstruction. Subjective: The patient feels a little better. NG tube is minimal. Objective: Chest: Clear. Abdomen: Soft and depressible. Extremities: Good capillary refill. Plan: We will do the small bowel series tomorrow. If this is still obstructed, we have to discuss o nce again surgical options. If it is not obstructed, then we will advance diet. We encouraged the p atient ambulation. DEBBIE/ANITA Voice ID: [id number] Report ID: [id number]
[2021-05-06] MEDS: D5 0.45 NS 1,000 ML IV SCH ×3 (00:06→16:59)
[2021-05-06] MEDS: METRONIDAZOLE 500mg IVPB 500 MG/100 ML BAG IV SCH ×3 (00:08→18:28)
[2021-05-06] MEDS: MORPHINE 4 MG/ML SYR IV PRN (01:24)
[2021-05-06] MEDS: DIPHENHYDRAMINE 50 MG/ML VIAL IV PRN (05:39)
[2021-05-06 05:41] LABS: Absolute Lymphocytes (CBC) 1.7 K/uL (0.7-4.9); Basophils % 0.5 % (0-1.3); Hematocrit 30.6 % (36.0-45.0); Lymphocytes % 41.8 % (15.3-44.8); MPV 9.9 fL (7.6-11.3); RBC Red Blood Cell Count 3.02 M/uL (3.86-4.86)
[2021-05-06 05:51] LABS: Magnesium 1.9 mg/dL (1.8-2.4); Phosphorus 2.9 mg/dL (2.5-4.9); Potassium 3.7 mmol/L (3.5-5.1)
[2021-05-06] MEDS ORDERED: KCL 20 MEQ/100 mL IVPB 20 MEQ/100 ML BAG IV SCH (09:00)
[2021-05-06] MEDS: HEPARIN 5000 UNIT/ML 1 ML VIAL SQ SCH ×2 (09:00→21:15)
--- NOTE | 2021-05-06 13:09 | RAD REPORT ---
EXAM DESCRIPTION: RAD - Small Bowel Series - 05/06/2021 1:03 pm CLINICAL HISTORY: SBO Abdominal pain COMPARISON: Abdomen Pelvis Wo Contrast dated 05/03/2021 FINDINGS: Staking Technician film shows a nonspecific bowel gas pattern. No obstruction or free air. No suspiciou s calcifications. Gastric size and mucosal fold pattern are normal. Prominent gastroesophageal reflux noted. No delay i n transit of contrast into the small bowel. Small bowel is normal in diameter with no mucosal fold th ickening. No intrinsic or extrinsic mass identifiable. Terminal ileum has normal appearance. Transit time to the colon is normal. No fluoroscopy was performed. Total images acquired: 14 IMPRESSION: Significant gastroesophageal reflux disease. No bowel obstruction suspected.
[2021-05-06] MEDS: Levofloxacin 250mg IV 250 MG/50 ML BAG IV SCH (14:15)
--- NOTE | 2021-05-06 19:37 | PN ---
Date of Progress Note: 05/06/2021 Subjective: The patient was seen this morning for followup. She was lying in bed, not in distress. Denies any complaints. Objective: Vital Signs: Reviewed. HEENT: Unremarkable. Lungs: Clear to auscultation. Heart: Sounds normal. Abdomen: Soft. Bowel sounds present. No guarding. No rigidity. No rebound tenderness, but presen ce of tenderness in all the 4 quadrants, slightly better today than yesterday. Extremities: No leg edema. Laboratory Data: Labs reviewed and the patient's small bowel series came back unremarkable. No evid ence of bowel obstruction on it, but it did show significant gastroesophageal reflux disease. Impression: 1.Small bowel obstruction. 2.Hypertension. 3.Chronic kidney disease. Plan: We will continue current medication. Continue current antibiotic. Follow up with general mayo ivy and I did talk to the patient's daughter this morning and I will communicate with her again late r today regarding small bowel series result. NEVIN/MODL Voice ID: [id number] Report ID: [id number]
[2021-05-07] MEDS: METRONIDAZOLE 500mg IVPB 500 MG/100 ML BAG IV SCH ×3 (00:26→16:31)
[2021-05-07] MEDS: D5 0.45 NS 1,000 ML IV SCH ×3 (02:59→12:59)
[2021-05-07] MEDS ORDERED: KCL 20 MEQ/100 mL IVPB 20 MEQ/100 ML BAG IV SCH (08:00)
[2021-05-07] MEDS: ONDANSETRON 4 MG/2 ML VIAL IV PRN (08:39)
[2021-05-07] MEDS: HEPARIN 5000 UNIT/ML 1 ML VIAL SQ SCH ×2 (08:39→21:17)
[2021-05-07] MEDS: Levofloxacin 250mg IV 250 MG/50 ML BAG IV SCH (08:41)
[2021-05-07] MEDS ORDERED: POTASSIUM CL SA 10 MEQ TAB PO ONE (14:00)
[2021-05-08] MEDS: METRONIDAZOLE 500mg IVPB 500 MG/100 ML BAG IV SCH ×3 (00:45→17:00)
[2021-05-08] MEDS: D5 0.45 NS 1,000 ML IV SCH ×2 (02:51→08:59)
[2021-05-08] MEDS: MORPHINE 4 MG/ML SYR IV PRN (03:24)
[2021-05-08 04:01] VITALS: O2SAT 92
[2021-05-08] MEDS: HEPARIN 5000 UNIT/ML 1 ML VIAL SQ SCH (09:00)
[2021-05-08] MEDS: Levofloxacin 250mg IV 250 MG/50 ML BAG IV SCH (09:22)
[2021-05-08 12:22] VITALS: BP 144/67; TEMP 96.9
--- NOTE | 2021-05-09 07:20 | DS ---
Date of Discharge: 05/08/2021 Disposition: Discharged to home. Physical Examination: HEENT: Examination unremarkable. Lung: Clear to auscultation. Heart: Sounds normal. Abdomen: Soft. Bowel sounds normal. No guarding, rigidity, tenderness, or distention. Extremity Exam: No leg edema. Laboratory Data: Upon admission, white count 8.7, hemoglobin 13.7, and platelets 162. Yesterday las t CBC, white count 4, hemoglobin 10.3, and platelets 117. Upon admission, sodium 141, potassium 4.6, chloride 107 bicarb 27, BUN 17, creatinine 1.70, and glucose 118. Liver function tests unremarkable . Last chemistry yesterday, sodium 142, potassium 3.7, chloride 109, bicarb 29, BUN 9, creatinine 1. 38, glucose 90, and magnesium 1.9. Hospital Course: This is an 85-year-old female patient, admitted to the hospital with abdominal pain , nausea, and vomiting. Please see dictated H and P for more information. After the patient was christian luated in the emergency room, she was admitted to the hospital with small bowel obstruction. The [facility] had a CAT scan of abdomen done in the emergency room, showing small bowel obstruction. She was admitted to the hospital. Initially, she was kept n.p.o. NG tube was placed to low intermittent suct ion. Dr. Feliz was consulted from General Surgery. The patient was given IV fluid, empiric IV an tibiotics, and DVT prophylaxis. Overall, with conservative treatment, her condition improved. She h ad a small bowel series, which showed no evidence of any obstruction, and after that, we started her on clear liquid diet. Her NG tube was discontinued. Physical therapy was consulted to help ambulate the patient and the patient started to have bowel movements, and overall, her condition improved sig nificantly. We advanced her diet to full liquid diet and to soft diet. She tolerated that well, and today, she was discharged to go home in a stable condition. Final Diagnoses: 1.Small bowel obstruction. 2.Anemia, unspecified. 3.Thrombocytopenia. 4.Chronic kidney disease, stage 3B. 5.Hypertension. 6.Hyperlipidemia. 7.Diverticulosis. 8.Gastroesophageal reflux disease. 9.Osteoarthritis, multiple sites. Discharge Medications And Instructions: 1.Continue all prior home medications. 2.Follow up at my office on 05/14/2021 at 9:00 a.m. 3.Take Levaquin 250 mg daily for 1 week and metronidazole 250 mg 3 times a day for 1 week. NEVIN/MODL Voice ID: [id number] Report ID: [id number]
== END 2021-05-08 18:19 | disposition home or self-care (01) | DRG 390 ==
LOC: ER 19:47 → ERHOLD 05-04 02:16 → 2ND 05-04 09:33
PROVIDERS: ADMIT Internal Medicine; ATTEND Internal Medicine
DX: K56.609 Unspecified intestinal obstruction, unspecified as to partial versus complete obstruction (principal); I12.9 Hypertensive chronic kidney disease with stage 1 through stage 4 chronic kidney disease, or unspecified chronic kidney disease; N18.32 Chronic kidney disease, stage 3b; E78.5 Hyperlipidemia, unspecified; K57.90 Diverticulosis of intestine, part unspecified, without perforation or abscess without bleeding; K21.9 Gastro-esophageal reflux disease without esophagitis; M19.90 Unspecified osteoarthritis, unspecified site; D64.9 Anemia, unspecified; D69.6 Thrombocytopenia, unspecified; Z88.0 Allergy status to penicillin; Z20.822 Contact with and (suspected) exposure to COVID-19
CPT/HCPCS: 36415; 71045; 74176; 74250; 80048; 80076; 83690; 83735; 84100; 85025; 96361; 96365; 96375; 97161; 99285; J0696; J1200; J1644; J2270; J2405; J3475; J3480; J7799; U0003

== ENCOUNTER 2021-10-23 18:08 | Emergency (ER) | payer OTHER ==
[2021-10-23 23:09] LABS: Absolute Lymphocytes (CBC) 2.3 K/uL (0.7-4.9); Lymphocytes % 40.8 % (15.3-44.8); MPV 9.9 fL (7.6-11.3); RBC Red Blood Cell Count 3.58 M/uL (3.86-4.86)
[2021-10-23 23:12] LABS: Protime INR 0.97
[2021-10-23 23:29] LABS: ALT/SGPT 22 U/L (12-78); AST/SGOT 22 U/L (15-37); Albumin 3.1 g/dL (3.4-5.0); Alkaline Phosphatase 66 U/L (45-117); BUN Blood Urea Nitrogen 17 mg/dL (7-18); Bicarbonate 25 mmol/L (21-32); Bilirubin Direct 0.1 mg/dL (0-0.2); Bilirubin Total 0.3 mg/dL (0.2-1.0); Ferritin 557.7 ng/mL (8-388); Glucose Level 84 mg/dL (74-106); Lipase 149 U/L (73-393); Potassium 3.6 mmol/L (3.5-5.1); Protein, Total 6.8 g/dL (6.4-8.2); Sodium Level 139 mmol/L (136-145)
[2021-10-23 23:36] LABS: C-Reactive Protein < 2.90 mg/L (<3.00)
[2021-10-24 00:22] LABS: SARS-COV-2 RT PCR POSITIVE (NEGATIVE)
--- NOTE | 2021-10-24 01:03 | EDPHYS ---
Physician Documentation [facility] Name: Danielle Najera Age: 85 yrs Sex: Female : 1935 Arrival Date: 10/23/2021 Time: 18:13 Bed 19 Private MD: Rox Aguayo C ED Physician Heber Berry HPI: 10/24 00:00 This 85 yrs old Female presents to ER via Wheelchair with complaints of Wheezing > 1 kb Year. 00:00 The patient or guardian reports cough, difficulty breathing. Onset: The kb symptoms/episode began/occurred 10 day(s) ago. Severity of symptoms: At their worst the symptoms were mild, in the emergency department the symptoms are unchanged. Modifying factors: The symptoms are alleviated by nothing, the symptoms are aggravated by nothing. Associated signs and symptoms: The patient has no apparent associated signs or symptoms. The patient has not experienced similar symptoms in the past. The patient has not recently seen a physician. Pt was diagnosed with covid on 10/14/21. Daughter states the assisted living staff checked on her today and she was having trouble breathing, wheezing and her oxygen sat was 84% so they sent her for evaluation. Pt states she feels fine, is having no difficulty breathing and would like to go home. Historical: - Allergies: 10/23 19:00 Codeine; jl7 19:00 PENICILLINS; jl7 - PMHx: 19:00 Diverticulitis; High Cholesterol; Hypertension; jl7 19:02 Dementia; jl7 - PSHx: 19:00 bowel resection; section; Cholecystectomy; stomach stapled and banded and jl7 reversed; - Immunization history:: Client reports receiving the 2nd dose of the Covid vaccine, Moderna. - Social history:: Smoking status: Patient denies any tobacco usage or history of. ROS: 10/24 00:00 Constitutional: Negative for fever, chills, and weight loss. kb Respiratory: Positive for cough, shortness of breath, wheezing, Negative for dyspnea on exertion, hemoptysis, orthopnea, pleurisy, sputum production. All other systems are negative. Exam: 10/23 23:59 Constitutional: This is a well developed, well nourished patient who is awake, alert, kb and in no acute distress. Head/Face: Normocephalic, atraumatic. ENT: Moist Mucous membranes Cardiovascular: Regular rate and rhythm with a normal S1 and S2. No gallops, murmurs, or rubs. No pulse deficits. Respiratory: Respirations even and unlabored. No increased work of breathing. Talking in full sentences Skin: Warm, dry with normal turgor. Normal color. MS/ Extremity: Pulses equal, no cyanosis. Neurovascular intact. Full, normal range of motion. Neuro: Awake and alert, GCS 15, oriented to person, place, time, and situation. Moves all extremities. Normal gait. Psych: Awake, alert, with orientation to person, place and time. Behavior, mood, and affect are within normal limits. Vital Signs: 18:56 BP 154 / 69; Pulse 59; Resp 19; Temp 97.2(O); Pulse Ox 100% on R/A; Weight 63.5 kg; jl7 Height 4 ft. 9 in. (144.78 cm); Pain 0/10; 23:52 BP 134 / 43; Pulse 64; Resp 16; Pulse Ox 100% on R/A; kd3 10/24 01:04 BP 132 / 44; Pulse 62; Resp 17; Pulse Ox 98% on R/A; kd3 01:25 BP 130 / 45; Pulse 68; Resp 17; Pulse Ox 98% on R/A; kd3 10/23 18:56 Body Mass Index 30.30 (63.50 kg, 144.78 cm) 7 MDM: 10/23 20:52 Patient medically screened. kb 23:59 Data reviewed: vital signs, nurses notes. Data interpreted: Pulse oximetry: on room air kb is 100 %. Interpretation: normal. 10/24 00:56 Counseling: I had a detailed discussion with the patient and/or guardian regarding: the kb historical points, exam findings, and any diagnostic results supporting the discharge/admit diagnosis, lab results, radiology results, the need for outpatient follow up, a family practitioner, to return to the emergency department if symptoms worsen or persist or if there are any questions or concerns that arise at home. 00:56 ED course: Pt ambulated without becoming short of breath and sats maintained above 95%. kb Pt states she is feeling fine and wants to go home. Daughter states she does not believe the sat taken by assisted living staff was accurate because she checked the sat soon after they called and it was 99-100%. . 10/23 21:07 Order name: CBC with Diff; Complete Time: 23:20 kb 10/23 21:07 Order name: Basic Metabolic Panel; Complete Time: 23:38 kb 10/23 21:07 Order name: D-Dimer; Complete Time: 23:20 kb 10/23 21:07 Order name: CRP; Complete Time: 23:38 kb 10/23 21:07 Order name: Ferritin; Complete Time: 23:38 kb 10/23 21:26 Order name: Blood Culture Adult (2) kb 10/23 21:26 Order name: LFT's kb 10/23 21:26 Order name: Lactate; Complete Time: 23:21 kb 10/23 21:26 Order name: Procalcitonin; Complete Time: 23:59 kb 10/23 21:27 Order name: Blood Culture EDMS 10/23 21:07 Order name: Chest Pa And Lat (2 Views) XRAY kb 10/23 21:07 Order name: IV Start; Complete Time: 22:44 kb 10/23 21:26 Order name: EKG; Complete Time: 21:27 kb 10/23 21:26 Order name: Cardiac monitoring; Complete Time: 22:44 kb 10/23 21:26 Order name: Droplet/Contact Precautions; Complete Time: 22:44 kb 10/23 21:26 Order name: EKG - Nurse/Tech; Complete Time: 23:36 kb 10/23 21:26 Order name: Labs collected and sent; Complete Time: 22:44 kb 10/23 21:26 Order name: O2 Per Protocol; Complete Time: 22:44 kb 10/23 21:27 Order name: COVID-19/FLU A+B (Document "Date of Onset" if Symptomatic); Complete Time: kb 00:22 10/23 23:06 Order name: Protime (+INR); Complete Time: 23:20 EDMS 10/23 23:06 Order name: PTT, Activated Partial Thromb; Complete Time: 23:20 EDMS 10/23 23:06 Order name: Liver (Hepatic) Function; Complete Time: 23:38 EDMS 10/23 23:06 Order name: Troponin High Sensitivity; Complete Time: 23:38 EDMS 10/23 23:06 Order name: Lipase; Complete Time: 23:38 EDMS 10/23 23:16 Order name: CT Chest For PE Angio bb 10/23 21:26 Order name: O2 Sat Monitoring; Complete Time: 22:44 kb 10/23 23:39 Order name: Vital Signs; Complete Time: 23:55 kb Administered Medications: No medications were administered Disposition: 08:05 Co-signature as Attending Physician, Heber Berry MD I agree with the assessment and sp3 plan of care. Disposition Summary: 10/24/21 01:02 Discharge Ordered Location: Home kb Condition: Stable kb Diagnosis - Coronavirus infection, unspecified kb Followup: kb - With: Emergency Department - When: As needed - Reason: Worsening of condition Followup: kb - With: Rox Aguayo MD - When: 2 - 3 days - Reason: Recheck today's complaints, Continuance of care, Re-evaluation by your physician Discharge Instructions: - Discharge Summary Sheet kb - Viral Respiratory Infection, [id number]-Ut-Kqud kb - COVID-19 kb Forms: - Medication Reconciliation Form kb - Thank You Letter kb - Antibiotic Education kb - Prescription Opioid Use kb Signatures: Dispatcher [employer] EDMS Alexsandra Garner FNP-C [facility]IT-Ferd Carrington, RN RN jl7 Heber Berry MD MD sp3 Corrections: (The following items were deleted from the chart) 10/23 23:06 21:27 Liver (Hepatic) Function ordered. EDMS EDMS 23:06 21:27 LIPASE+C.LAB.BRZ ordered. EDMS EDMS 23:06 21:27 PROTIME (+INR)+COAG.LAB.BRZ ordered. EDMS EDMS 23: 21:27 PTT, ACTIVATED+COAG.LAB.BRZ ordered. EDMS EDMS 23:06 21:27 Troponin High Sensitivity+C.LAB.BRZ ordered. EDMS EDMS
--- NOTE | 2021-10-24 01:03 | ER ---
Nurse's Notes [facility] [place] Name: Danielle Najera Age: 85 yrs Sex: Female : 1935 Arrival Date: 10/23/2021 Time: 18:13 Bed 19 Private MD: Rox Aguayo C Diagnosis: Coronavirus infection, unspecified Presentation: 10/23 18:56 Chief complaint: Patient states: Covid + since 10-14-2021; resident at [facility] and jl they checked on her and her O2 was 84%; pt has dry cough. Coronavirus screen: Vaccine status: Patient reports receiving the 2nd dose of the covid vaccine. Moderna cough unrelated to allergies, Client presents with at least one sign or symptom that may indicate coronavirus-19. Standard/surgical mask placed on the client. Ebola Screen: No symptoms or risks identified at this time. Initial Sepsis Screen: Does the patient meet any 2 criteria? No. Patient's initial sepsis screen is negative. Does the patient have a suspected source of infection? No. Patient's initial sepsis screen is negative. Risk Assessment: Do you want to hurt yourself or someone else? Patient reports no desire to harm self or others. Onset of symptoms was October 14, 2021. 18:56 Method Of Arrival: Wheelchair jl 18:56 Acuity: CANDIE 3 jl7 Triage Assessment: 19:02 General: Appears in no apparent distress. uncomfortable, Behavior is calm, cooperative, jl7 appropriate for age. Pain: Denies pain. Respiratory: Reports cough that is Onset: The symptoms/episode began/occurred gradually, the patient has mild shortness of breath. Historical: - Allergies: 19:00 Codeine; jl7 19:00 PENICILLINS; jl7 - PMHx: 19:00 Diverticulitis; High Cholesterol; Hypertension; jl7 19:02 Dementia; jl7 - PSHx: 19:00 bowel resection; section; Cholecystectomy; stomach stapled and banded and jl7 reversed; - Immunization history:: Client reports receiving the 2nd dose of the Covid vaccine, Moderna. - Social history:: Smoking status: Patient denies any tobacco usage or history of. Screenin:54 Abuse screen: Denies threats or abuse. Denies injuries from another. Nutritional kd3 screening: No deficits noted. Tuberculosis screening: No symptoms or risk factors identified. Fall Risk IV access (20 points). Gait- Weak (10 pts.). Assessment: 20:30 Reassessment: Patient is alert, oriented x 3, equal unlabored respirations, skin kd3 warm/dry/pink. Patient denies pain at this time. 20:30 General: Appears in no apparent distress. Behavior is calm, cooperative, appropriate kd3 for age. Pain: Denies pain. Neuro: No deficits noted. Level of Consciousness is awake, alert, obeys commands, Oriented to person, place, time, situation. Cardiovascular: Rhythm is sinus bradycardia. Respiratory: Airway is patent Respiratory effort is even, unlabored, Breath sounds with crackles bilaterally. 10/24 00:09 Reassessment: Patient and/or family updated on plan of care and expected duration. Pain kd3 level reassessed. Patient is alert, oriented x 3, equal unlabored respirations, skin warm/dry/pink. General: Appears in no apparent distress. comfortable, Behavior is calm, cooperative, appropriate for age. Respiratory: Airway is patent Respiratory effort is even, unlabored, COUGH, FORCE STRONG Breath sounds with crackles bilaterally. Vital Signs: 10/23 18:56 BP 154 / 69; Pulse 59; Resp 19; Temp 97.2(O); Pulse Ox 100% on R/A; Weight 63.5 kg; jl7 Height 4 ft. 9 in. (144.78 cm); Pain 0/10; 23:52 BP 134 / 43; Pulse 64; Resp 16; Pulse Ox 100% on R/A; kd3 10/24 01:04 BP 132 / 44; Pulse 62; Resp 17; Pulse Ox 98% on R/A; kd3 01:25 BP 130 / 45; Pulse 68; Resp 17; Pulse Ox 98% on R/A; kd3 10/23 18:56 Body Mass Index 30.30 (63.50 kg, 144.78 cm) jl7 ED Course: 10/23 18:13 Patient arrived in ED. am2 18:27 Rox Aguayo MD is Private Physician. am2 19:00 Triage completed. jl7 19:02 Arm band placed on right wrist. Patient placed in waiting room, Patient notified of jl7 wait time. 20:52 Alexsandra Garner FNP-C is [facility]. 20:52 Heber Berry MD is Attending Physician. kb 22:11 Chest Pa And Lat (2 Views) XRAY In Process Unspecified. EDMS 22:31 Vanessa Romero, RN is Primary Nurse. kd3 22:40 Inserted saline lock: 22 gauge in right forearm, using aseptic technique. Blood ds4 collected. 23:16 Notified Nurse Practitioner and/or Physician Floor Representative of a critical lab result(s), bb D-Dimer of 1037 Alexsandra Garner WIRELINE OPERATOR notified. 23:54 Patient has correct armband on for positive identification. Bed in low position. Call kd3 light in reach. Side rails up X2. Pulse ox on. NIBP on. 10/24 00:10 CT Chest For PE Angio In Process Unspecified. EDMS 01:01 Rox Aguayo MD is Referral Physician. kb 01:26 No provider procedures requiring assistance completed. IV discontinued, intact, kd3 bleeding controlled, No redness/swelling at site. Pressure dressing applied. Administered Medications: No medications were administered Outcome: 01:02 Discharge ordered by MD. kb 01:26 Discharged to home via wheelchair, with family. kd3 01:26 Condition: stable 01:26 Discharge instructions given to patient, family, Instructed on discharge instructions, follow up and referral plans. Demonstrated understanding of instructions, follow-up care. 01:34 Patient left the ED. kd3 Signatures: Dispatcher [employer] EDDE Alexsandra Garner, SENIOR ENGINEERING TEAM LEADER-C SENIOR ENGINEERING TEAM LEADER-CkWillow Hodges, RN RN Alfred Rodriguez ds4 Fred Steinberg RN RN jl7 Nohemy Koo am2 Vanessa Romero, RN RN kd3
[2021-10-24 01:40] VITALS: TEMP 97.2
[2021-10-24 01:43] VITALS: O2SAT 98
[2021-10-24 01:44] VITALS: BP 130/45
--- NOTE | 2021-10-24 09:56 | RAD REPORT ---
EXAM DESCRIPTION: RAD - Chest Pa And Lat (2 Views) - 10/23/2021 10:11 pm CLINICAL HISTORY: DYSPNEA Chest pain. COMPARISON: Chest Single View dated 05/04/2021; Chest Pa And Lat (2 Views) dated 09/12/2020; Chest Pa And Lat (2 Views) dated 07/02/2018; Abdomen 1 View (KUB) dated 05/01/2018 FINDINGS: The lungs are clear. The heart is mildly enlarged in size. No displaced fractures.
--- NOTE | 2021-10-24 11:52 | RAD REPORT ---
EXAM DESCRIPTION: Chest For Pe Angio CLINICAL HISTORY: 85 years Female elevated D-Dimer COMPARISON: None TECHNIQUE: Images were obtained in axial, sagittal, and coronal planes. Intravenous contrast was adm inistered. 3-D MIP imaging was performed. This exam was performed according to our departmental dose-optimization program which includes use of Automated Exposure Control, adjustment of the mA and/or kV according to patient size and/or use o f iterative reconstruction technique. FINDINGS: No filling defects pulmonary arteries bilaterally. No aortic dissection or dilatation. No pericardial or pleural effusions bilaterally. No adenopathy. No lung parenchymal infiltrates or nodules seen. No pneumothorax. No acute osseous abnormality. IMPRESSION: No evidence for pulmonary embolus. No aortic dissection or dilatation. No infiltrates se en. Electronically signed by: Alesia Myers MD 10/24/2021 12:32 AM BI APPLICATION DEVELOPER Due to temporary technical issues with the PACS/Fluency reporting system, reports are being signed by the in house radiologist without review as a courtesy to ensure prompt reporting. The interpreting r adiologist is fully responsible for the content of the report.
== END 2021-10-24 01:34 | disposition home or self-care (01) ==
LOC: ER 18:08
DX: U07.1 COVID-19 (principal); I10 Essential (primary) hypertension
CPT/HCPCS: 93005; 87040 ×2; 85025; 80048; 36415; 85610; 85379; 80076; 83605; 85730; 84484; 82728; 83690; 84145; 0240U; 86140; 71275; 71046; 99284; Q9967

== ENCOUNTER 2021-12-21 10:25 | Inpatient (IN) | payer OTHER ==
[2021-12-21] MEDS ORDERED: NA CHLORIDE 0.9% 1,000 ML ONE (11:45)
--- NOTE | 2021-12-21 12:03 | RAD REPORT ---
EXAM DESCRIPTION: RAD - Chest Single View - 12/21/2021 11:55 am CLINICAL HISTORY: ABDOMINAL DISTENTION Chest pain. COMPARISON: Chest Pa And Lat (2 Views) dated 10/23/2021; Chest Single View dated 05/04/2021; Chest Pa And Lat (2 Views) dated 09/12/2020; Chest Pa And Lat (2 Views) dated 07/02/2018 FINDINGS: Portable technique limits examination quality. The lungs are mildly emphysematous but grossly clear. The heart is normal in size. No displaced fract ures. IMPRESSION: Mild COPD.
[2021-12-21 12:10] LABS: Absolute Lymphocytes (CBC) 1.1 K/uL (0.7-4.9); Hematocrit 41.6 % (36.0-45.0); Lymphocytes % 17.1 % (15.3-44.8); MPV 9.7 fL (7.6-11.3); RBC Red Blood Cell Count 4.11 M/uL (3.86-4.86)
[2021-12-21] MEDS ORDERED: FENTANYL CITR 100 MCG/2 ML ONE (12:20)
[2021-12-21] MEDS ORDERED: ONDANSETRON 4 MG/2 ML VIAL ONE (12:20)
[2021-12-21] MEDS ORDERED: CIPROFLOXACIN 400mg IV 400 MG/200 ML BAG IV ONE (12:24)
[2021-12-21] MEDS ORDERED: CEPHALEXIN 250 MG CAP ONE (12:24)
[2021-12-21] MEDS ORDERED: METRONIDAZOLE 500mg IVPB 500 MG/100 ML BAG IV ONE (12:24)
[2021-12-21 12:29] LABS: Albumin 3.7 g/dL (3.4-5.0); Bilirubin Direct 0.1 mg/dL (0-0.2); Bilirubin Total 0.5 mg/dL (0.2-1.0); Magnesium 2.1 mg/dL (1.8-2.4); Potassium 4.1 mmol/L (3.5-5.1); Protein, Total 7.6 g/dL (6.4-8.2); Troponin High Sensitivity 6.7 pg/mL (<58.9)
--- NOTE | 2021-12-21 13:07 | RAD REPORT ---
EXAM DESCRIPTION: CTAbdomen Pelvis W Contrast - 12/21/2021 12:56 pm CLINICAL HISTORY: Abdominal pain. ABD PAIN COMPARISON: Abdomen Pelvis W Contrast dated 05/01/2018; Abdomen Pelvis W Contrast dated 04/25/2018 ; CT ABD PELVIS W CONTRAST dated 07/18/2014; CT ABD PELVIS W CONTRAST dated 01/23/2013 TECHNIQUE: Biphasic CT imaging of the abdomen and pelvis was performed with 100 ml non-ionic IV cont rast. All CT scans are performed using dose optimization technique as appropriate and may include automated exposure control or mA/KV adjustment according to patient size. FINDINGS: The lung bases are clear. Mild intrahepatic biliary tree dilatation. 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 The liver, spleen, pancreas and left adrenal gland are normal. Mild thickening of the right adrenal gland is seen. Mild atrophy of the right kidney. Left renal cysts are present without hydronephrosis. Multiple dilated small bowel loops are seen with mild edema in the small bowel mesenteric. This likel y indicates a moderate mechanical small-bowel obstruction. The dilated small bowel loops appear on th e left aspect of the abdomen which could indicate internal hernia. No free air. The appendix is robert l. No evidence of significant lymphadenopathy. No suspicious bony findings. IMPRESSION: Moderate dilatation of small bowel loops along the left aspect of the abdomen with mild mesenteric edema. This likely indicates a moderate mechanical small-bowel obstruction. Internal herni a as a possible etiology of this is raise.
--- NOTE | 2021-12-21 14:39 | ER ---
Nurse's Notes [facility] [place] Name: Danielle Najera Age: 86 yrs Sex: Female : 1935 Arrival Date: 12/21/2021 Time: 10:26 Bed 6 Private MD: Diagnosis: Abdominal tenderness;Vomiting;Other intestinal obstruction-moderate mechanical small bowel obstruction Presentation: 12/21 10:40 Chief complaint: Patient states: Lower abdominal pain with nausea that started last ww night. She believes it is her diverticulitis. Coronavirus screen: Vaccine status: Patient reports receiving the 2nd dose of the covid vaccine. Client denies travel out of the [place] in the last 14 days. Ebola Screen: Patient denies travel to an Ebola-affected area in the 21 days before illness onset. Initial Sepsis Screen: Does the patient meet any 2 criteria? No. Patient's initial sepsis screen is negative. Does the patient have a suspected source of infection? No. Patient's initial sepsis screen is negative. Risk Assessment: Do you want to hurt yourself or someone else? Patient reports no desire to harm self or others. Onset of symptoms was December 20, 2021. 10:40 Method Of Arrival: Wheelchair ww 10:40 Acuity: CANDIE 3 ww Triage Assessment: 10:41 General: Appears uncomfortable, Behavior is cooperative. Pain: Complains of pain in ww suprapubic area, right lower quadrant and left lower quadrant. Neuro: Level of Consciousness is awake, alert, obeys commands, Oriented to person, place, time, situation, Speech is normal. Cardiovascular: Patient's skin is warm and dry. Respiratory: Airway is patent Respiratory effort is even, unlabored, Respiratory pattern is regular, symmetrical. GI: Reports lower abdominal pain, nausea. Historical: - Allergies: 10:41 Codeine; ww 10:41 PENICILLINS; ww - PMHx: 10:41 Dementia; Diverticulitis; High Cholesterol; Hypertension; ww - PSHx: 10:41 bowel resection; section; Cholecystectomy; stomach stapled and banded and ww reversed; - Immunization history:: Adult Immunizations up to date. - Social history:: Smoking status: Patient denies any tobacco usage or history of. - Family history:: not pertinent. Screenin:42 Abuse screen: Denies threats or abuse. Denies injuries from another. Nutritional ww screening: No deficits noted. Tuberculosis screening: No symptoms or risk factors identified. 15:46 Fall Risk None identified. jg9 Assessment: 13:37 Reassessment: Patient is resting in bed quietly, appears to have improvement in pain jg9 with medication interventions. Patient states symptoms have improved. 15:49 Reassessment: attempted to call report at 1545. jg9 Vital Signs: 10:40 BP 118 / 58; Pulse 76; Resp 16; Pulse Ox 98% on R/A; Weight 65.77 kg; Height 4 ft. 10 ww in. (147.32 cm); Pain 8/10; 11:50 BP 156 / 89; Pulse 80; Resp 17; Pulse Ox 97% ; Pain 10/10; jg9 12:30 BP 151 / 79; Pulse 75; Resp 14 S; Pulse Ox 85% on R/A; Pain 7/10; jg9 13:00 BP 149 / 70; Pulse 69; Resp 12; Pulse Ox 83% on R/A; Pain 6/10; jg9 13:30 BP 145 / 64; Pulse 79; Resp 12 S; Pulse Ox 96% on R/A; Pain 4/10; jg9 14:00 BP 156 / 66; Pulse 77; Resp 11; Pulse Ox 100% on 2 lpm NC; jg9 14:30 BP 171 / 85; Pulse 78; Resp 16 S; Pulse Ox 100% on R/A; jg9 10:40 Body Mass Index 30.30 (65.77 kg, 147.32 cm) ww ED Course: 10:26 Patient arrived in ED. as 10:41 Triage completed. ww 10:41 Arm band placed on left wrist. ww 11:25 Kaity Degroot, RN is Primary Nurse. ph 11:26 Patient has correct armband on for positive identification. Bed in low position. Call light in reach. Side rails up X 1. Pulse ox on. NIBP on. 11:27 Wade Carrera MD is Attending Physician. rose marie 11:55 XRAY Chest (1 view) In Process Unspecified. EDMS 12:56 CT Abd/Pelvis - IV Contrast Only In Process Unspecified. EDMS 13:37 Oxygen administration via nasal cannula \T\ 2L/min Response to oxygen therapy: symptoms jg9 improved. 13:38 No apparent distress. Resting quietly. Appears to be sleeping. Pt visited by daughter. jg9 14:37 Jareth Aguayo MD is Hospitalizing Provider. [facility] 15:45 NGT: inserted 16 Fr. via right nare. verified return of gastric contents, flushed with jg9 50 ml NS Patient tolerated well. 16:10 No provider procedures requiring assistance completed. jg9 16:10 Patient admitted, IV remains in place. jg9 Administered Medications: 12:03 Drug: NS 0.9% 1000 ml Route: IV; Rate: 125 ml/hr; Site: right antecubital; jg9 14:00 Follow up: Response: No adverse reaction; IV Status: Infusion continued upon admission ph 12:35 Drug: Zofran (Ondansetron) 4 mg Route: IVP; Site: right antecubital; jg9 13:13 Follow up: Response: No adverse reaction jg9 12:40 Drug: KeFLEX (cephalexin) 500 mg Route: PO; jg9 13:13 Follow up: Response: No adverse reaction j9 12:41 Drug: fentaNYL (PF) 25 mcg {Note: RASS-0.} Route: IVP; Site: right antecubital; jg9 13:00 Follow up: Response: No adverse reaction; Pain is unchanged, physician notified jg9 12:42 Drug: Cipro (ciprofloxacin) 400 mg Volume: 200 ml; Route: IVPB; Infused Over: 60 mins; jg9 Site: right antecubital; 13:30 Follow up: IV Status: Completed infusion; IV Intake: 200ml jg9 14:01 Follow up: IV Status: Completed infusion; IV Intake: 200ml jg9 13:12 Drug: fentaNYL (PF) 25 mcg {Note: RASS-0.} Route: IVP; Site: right antecubital; jg9 14:02 Follow up: Response: No adverse reaction; Marked relief of symptoms; RASS: Drowsy (-1) jg9 14:01 Drug: Flagyl (metroNIDAZOLE) 500 mg Volume: 100 ml; Route: IVPB; Rate: 200 ml/hr; jg9 Infused Over: 30 mins; Site: right antecubital; 15:43 Follow up: IV Status: Completed infusion jg9 15:43 Follow up: IV Intake: 100ml jg9 16:08 Not Given (n/aa): NS 0.9% 1000 ml IV at 1 bolus Per protocol; 1000 mL bolus jg9 Intake: 13:30 IV: 200ml; Total: 200ml. jg9 14:01 IV: 200ml; Total: 400ml. jg9 15:43 IV: 100ml; Total: 500ml. jg9 Outcome: 14:39 Decision to Hospitalize by Provider. rose marie 16:10 Admitted to Med/surg accompanied by tech, via wheelchair, Report called to ORVERTO Rodriguez jg9 16:10 Condition: stable 17:11 Patient left the ED. jg9 Signatures: Dispatcher [employer] EDOR Wade Carrera MD MD cha Martinez, Amelia as Hall, Patricia, RN RN Asiya Winter RN RN jgRosmery Montague RN RN joão Corrections: (The following items were deleted from the chart) 15:50 15:49 Reassessment: report called at 1545 jg9 jg9
--- NOTE | 2021-12-21 14:40 | EDPHYS ---
Physician Documentation [facility] [place] Name: Danielle Najera Age: 86 yrs Sex: Female : 1935 Arrival Date: 12/21/2021 Time: 10:26 Bed 6 Private MD: CINTHIA Physician Wade Carrera HPI: 12/21 14:33 This 86 yrs old Female presents to ER via Wheelchair with complaints of rose marie diverticulitis flare. 14:33 The patient presents with abdominal pain in the left lower quadrant, abdominal rose marie distention in the lower abdomen. Onset: The symptoms/episode began/occurred last night. The patient presents to the emergency department with nausea, vomiting, that is intermittent. Onset: The symptoms/episode began/occurred last night. Possible causes: flare up of bowel problem, diverticulitis, obstruction. The symptoms are aggravated by nothing. The symptoms are alleviated by nothing. Associated signs and symptoms: Pertinent positives: abdominal pain, belching, nausea, vomiting. The symptoms do not radiate. The symptoms are described as constant, crampy. Historical: - Allergies: 10:41 Codeine; ww 10:41 PENICILLINS; ww - PMHx: 10:41 Dementia; Diverticulitis; High Cholesterol; Hypertension; ww - PSHx: 10:41 bowel resection; section; Cholecystectomy; stomach stapled and banded and ww reversed; - Immunization history:: Adult Immunizations up to date. - Social history:: Smoking status: Patient denies any tobacco usage or history of. - Family history:: not pertinent. ROS: 14:33 Constitutional: Negative for fever, chills, and weight loss, Eyes: Negative for injury, rose marie pain, redness, and discharge, ENT: Negative for injury, pain, and discharge, Neck: Negative for injury, pain, and swelling, Cardiovascular: Negative for chest pain, palpitations, and edema, Respiratory: Negative for shortness of breath, cough, wheezing, and pleuritic chest pain, Back: Negative for injury and pain, : Negative for injury, bleeding, discharge, and swelling, MS/Extremity: Negative for injury and deformity, Skin: Negative for injury, rash, and discoloration, Neuro: Negative for headache, weakness, numbness, tingling, and seizure, Psych: Negative for depression, anxiety, suicide ideation, homicidal ideation, and hallucinations, Allergy/Immunology: Negative for hives, rash, and allergies, Endocrine: Negative for neck swelling, polydipsia, polyuria, polyphagia, and marked weight changes, Hematologic/Lymphatic: Negative for swollen nodes, abnormal bleeding, and unusual bruising. 14:33 Respiratory: Positive for cough, with no reported sputum. 14:33 Abdomen/GI: Positive for abdominal pain, nausea and vomiting, abdominal cramps, abdominal distension, of the left lower quadrant. Exam: 14:33 Constitutional: This is a well developed, well nourished patient who is awake, alert, rose marie and in no acute distress. Head/Face: Normocephalic, atraumatic. Eyes: Pupils equal round and reactive to light, extra-ocular motions intact. Lids and lashes normal. Conjunctiva and sclera are non-icteric and not injected. Cornea within normal limits. Periorbital areas with no swelling, redness, or edema. ENT: Nares patent. No nasal discharge, no septal abnormalities noted. Tympanic membranes are normal and external auditory canals are clear. Oropharynx with no redness, swelling, or masses, exudates, or evidence of obstruction, uvula midline. Mucous membranes moist. Neck: Trachea midline, no thyromegaly or masses palpated, and no cervical lymphadenopathy. Supple, full range of motion without nuchal rigidity, or vertebral point tenderness. No Meningismus. Chest/axilla: Normal chest wall appearance and motion. Nontender with no deformity. No lesions are appreciated. Cardiovascular: Regular rate and rhythm with a normal S1 and S2. No gallops, murmurs, or rubs. Normal PMI, no JVD. No pulse deficits. Respiratory: Lungs have equal breath sounds bilaterally, clear to auscultation and percussion. No rales, rhonchi or wheezes noted. No increased work of breathing, no retractions or nasal flaring. Back: No spinal tenderness. No costovertebral tenderness. Full range of motion. Skin: Warm, dry with normal turgor. Normal color with no rashes, no lesions, and no evidence of cellulitis. MS/ Extremity: Pulses equal, no cyanosis. Neurovascular intact. Full, normal range of motion. Neuro: Awake and alert, GCS 15, oriented to person, place, time, and situation. Cranial nerves II-XII grossly intact. Motor strength 5/5 in all extremities. Sensory grossly intact. Cerebellar exam normal. Normal gait. Psych: Awake, alert, with orientation to person, place and time. Behavior, mood, and affect are within normal limits. 14:33 ECG was reviewed by the Attending Physician. 14:33 Abdomen/GI: Inspection: distension, that is mild, Bowel sounds: hyperactive, in all quadrants, Palpation: moderate abdominal tenderness, in the left lower quadrant, rebound tenderness, is appreciated in the left lower quadrant, voluntary guarding, Liver: no appreciated palpable abnormalities, Hernia: not appreciated. Vital Signs: 10:40 BP 118 / 58; Pulse 76; Resp 16; Pulse Ox 98% on R/A; Weight 65.77 kg; Height 4 ft. 10 ww in. (147.32 cm); Pain 8/10; 11:50 BP 156 / 89; Pulse 80; Resp 17; Pulse Ox 97% ; Pain 10/10; jg9 12:30 BP 151 / 79; Pulse 75; Resp 14 S; Pulse Ox 85% on R/A; Pain 7/10; jg9 13:00 BP 149 / 70; Pulse 69; Resp 12; Pulse Ox 83% on R/A; Pain 6/10; jg9 13:30 BP 145 / 64; Pulse 79; Resp 12 S; Pulse Ox 96% on R/A; Pain 4/10; jg9 14:00 BP 156 / 66; Pulse 77; Resp 11; Pulse Ox 100% on 2 lpm NC; jg9 14:30 BP 171 / 85; Pulse 78; Resp 16 S; Pulse Ox 100% on R/A; jg9 10:40 Body Mass Index 30.30 (65.77 kg, 147.32 cm) ww MDM: 11:27 Patient medically screened. rose marie 14:50 Differential diagnosis: Nonspecific abd pain, gastritis, viral gastroenteritis, rose marie gastroenteritis, bowel obstruction, non-specific abd pain, pancreatitis, Pyelonephritis, Ureterolithiasis. Data reviewed: vital signs, nurses notes, lab test result(s), EKG, radiologic studies, CT scan, plain films. Data interpreted: electronic device monitor: rate is 77 beats/min, rhythm is regular, Pulse oximetry: on room air is 100 %. Test interpretation: by ED physician or midlevel provider: ECG, plain radiologic studies. Counseling: I had a detailed discussion with the patient and/or guardian regarding: the historical points, exam findings, and any diagnostic results supporting the discharge/admit diagnosis, lab results, radiology results, the need for further work-up and treatment in the hospital. 12/21 11:31 Order name: Basic Metabolic Panel; Complete Time: 14:16 [facility] 12/21 11:31 Order name: CBC with Diff; Complete Time: 14:16 [facility] 12/21 11:31 Order name: LFT's; Complete Time: 14:16 [facility] 12/21 11:31 Order name: Magnesium; Complete Time: 14:16 12/21 11:31 Order name: Troponin HS; Complete Time: 14:16 [facility] 12/21 11:31 Order name: Lipase; Complete Time: 14:16 [facility] 12/21 11:31 Order name: XRAY Chest (1 view); Complete Time: 12:14 [facility] 12/21 11:31 Order name: SARS-COV-2 RT PCR (Document "Date of Onset" if Symptomatic); Complete Time: [facility] 14:16 12/21 11:31 Order name: CT Abd/Pelvis - IV Contrast Only; Complete Time: 14:16 [facility] 12/21 11:31 Order name: Urine Culture 12/21 14:26 Order name: Lactate 12/21 16:17 Order name: Abdomen 1 View (KUB) XRAY 12/21 11:31 Order name: EKG; Complete Time: 11:32 12/21 11:31 Order name: Cardiac monitoring; Complete Time: 12:04 [facility] 12/21 11:31 Order name: EKG - Nurse/Tech; Complete Time: 12:04 12/21 11:31 Order name: IV Saline Lock; Complete Time: 12:04 12/21 11:31 Order name: Labs collected and sent; Complete Time: 12:04 12/21 11:31 Order name: O2 Sat Monitoring; Complete Time: 12:04 12/21 14:30 Order name: NG Tube; Complete Time: 15:43 12/21 14:43 Order name: CONS Physician Consult EDMS EC:33 Rate is 62 beats/min. Rhythm is regular. QRS [place] is Normal. VT interval is normal. QRS rose marie interval is normal. QT interval is normal. No Q waves. T waves are Normal. No ST changes noted. Clinical impression: Normal ECG and No evidence of ischemia. Interpreted by me. Reviewed by me. Administered Medications: 12:03 Drug: NS 0.9% 1000 ml Route: IV; Rate: 125 ml/hr; Site: right antecubital; jg9 14:00 Follow up: Response: No adverse reaction; IV Status: Infusion continued upon admission ph 12:35 Drug: Zofran (Ondansetron) 4 mg Route: IVP; Site: right antecubital; jg9 13:13 Follow up: Response: No adverse reaction jg9 12:40 Drug: KeFLEX (cephalexin) 500 mg Route: PO; jg9 13:13 Follow up: Response: No adverse reaction jg9 12:41 Drug: fentaNYL (PF) 25 mcg {Note: RASS-0.} Route: IVP; Site: right antecubital; jg9 13:00 Follow up: Response: No adverse reaction; Pain is unchanged, physician notified jg9 12:42 Drug: Cipro (ciprofloxacin) 400 mg Volume: 200 ml; Route: IVPB; Infused Over: 60 mins; jg9 Site: right antecubital; 13:30 Follow up: IV Status: Completed infusion; IV Intake: 200ml jg9 14:01 Follow up: IV Status: Completed infusion; IV Intake: 200ml jg9 13:12 Drug: fentaNYL (PF) 25 mcg {Note: RASS-0.} Route: IVP; Site: right antecubital; jg9 14:02 Follow up: Response: No adverse reaction; Marked relief of symptoms; RASS: Drowsy (-1) jg9 14:01 Drug: Flagyl (metroNIDAZOLE) 500 mg Volume: 100 ml; Route: IVPB; Rate: 200 ml/hr; jg9 Infused Over: 30 mins; Site: right antecubital; 15:43 Follow up: IV Status: Completed infusion jg9 15:43 Follow up: IV Intake: 100ml jg9 16:08 Not Given (n/aa): NS 0.9% 1000 ml IV at 1 bolus Per protocol; 1000 mL bolus jg9 Disposition Summary: 12/21/21 14:39 Hospitalization Ordered Hospitalization Status: Inpatient Admission rose amrie Provider: Jareth Aguayo cha Location: Telemetry/MedSurg (Inpatient) rose marie Condition: Fair rose marie Problem: an acute exacerbation rose marie Symptoms: are unchanged rose marie Bed/Room Type: Standard [facility] Room Assignment: [id number](12/21/21 15:39) dw Diagnosis - Abdominal tenderness rose marie - Vomiting rose marie - Other intestinal obstruction - moderate mechanical small bowel obstruction rose marie Forms: - Medication Reconciliation Form rose marie - SBAR form rose marie Signatures: Dispatcher [employer] Mansi Hubbard RN RN dw Anderson, Corey, MD MD cha Gilmore, Jennifer, RN RN jg9 Rosmery Neal RN RN ww Hall, Patricia RN ph Corrections: (The following items were deleted from the chart) 15:39 14:39 rose marie dw
--- NOTE | 2021-12-21 17:18 | RAD REPORT ---
EXAM DESCRIPTION: RAD - Abdomen 1 View (KUB) - 12/21/2021 5:02 pm CLINICAL HISTORY: ng tube placement;Distention Pain COMPARISON: Abdomen 1 View (KUB) dated 05/01/2018; ABDOMEN 1 VIEW KUB dated 09/27/2014; ABDOMEN 1 VIE W KUB dated 09/26/2014; ABDOMEN 1 VIEW KUB dated 01/25/2013 FINDINGS: Tip of the endotracheal tube is just entering the stomach.
[2021-12-21 17:24] VITALS: O2SAT 100
[2021-12-21] MEDS ORDERED: SODIUM CHLORIDE 0.9% 10ML INJ IV PRN (17:40)
[2021-12-21] MEDS: FENTANYL CITR 100 MCG/2 ML IV PRN ×2 (17:58→22:25)
[2021-12-21] MEDS: ONDANSETRON 4 MG/2 ML VIAL IV PRN (17:58)
[2021-12-21] MEDS: METRONIDAZOLE 500mg IVPB 500 MG/100 ML BAG IV SCH (17:59)
[2021-12-21 18:38] VITALS: BMI 29.2
[2021-12-21] MEDS ORDERED: AMLODIPINE 5 MG TAB PO ONE (20:40)
[2021-12-21] MEDS ORDERED: METOPROLOL TARTRATE 5 MG/5 ML INJ IV STA (20:40)
[2021-12-21] MEDS ORDERED: cloNIDine HCL 0.1 MG TAB PO PRN (20:41)
[2021-12-21] MEDS ORDERED: ENOXAPARIN 30 MG/0.3 ML SQ ONE (20:42)
[2021-12-21] MEDS ORDERED: CIPROFLOXACIN 400mg IV 400 MG/200 ML BAG IV SCH (21:00)
--- NOTE | 2021-12-21 22:42 | CON ---
Date of Consultation: 12/21/2021 Reason For Consultation: Abdominal pain. History Of Present Illness: The patient is an 86-year-old female with multiple medical problems, mul tiple abdominal surgeries in the past who presents with a 2-day history of diffuse abdominal pain, mo re on the left side, associated with nausea and 3 episodes of vomiting. She had a bowel movement yes terday and she cannot remember when she passed that. No sore throat, runny nose, cough, headaches, o r dizziness. No chest pain. No fever or chills. Review of Systems: Otherwise unremarkable. Please note, the patient had several episodes of small-bowel obstruction in the recent past. Managed medically without any difficulty. Past Medical History: Significant for mild dementia, hypertension, hyperlipidemia, GERD, diverticulo sis, chronic renal disease, osteoarthritis and osteopenia. Past Surgical History: Cataract surgery, cholecystectomy, sigmoid colon resection, gastric bypass or stapling and small bowel resection. Allergies: CODEINE AND PENICILLIN. Social History: The patient was a previous smoker. Does not drink alcohol currently. Family History: Significant for aneurysm, diabetes and heart disease in the father. Unknown type of cancer in the mother and siblings with hypertension and diabetes. Physical Examination: VITAL SIGNS: Her vitals are stable. She is currently afebrile. She is awake, alert, a little confu sed. HEAD AND NECK: Cranial nerves 2 through 12 are grossly within normal limits. No neck masses. No JV D. Throat clear. Neck is supple. CHEST: Clear. HEART: S1, S2. ABDOMEN: Slightly distended. Tenderness in the left and right side, minimal rebound on the left mark e. No peritonitis and no rigid abdomen, no involuntary guarding. No abdominal wall hernia appreciat ed. EXTREMITIES: Adequately perfused. Nontender. NEURO: Nonfocal. Lab Data: White count is 6.6 with MCV of 101 and neutrophil percentage is 76.9%. Her electrolytes r eviewed and her lactic acid is pending. Otherwise essentially unremarkable. Her CO2 is 25. The CAT scan of the abdomen and pelvis reviewed, shows moderate dilatation of the small bowel loops along th e left abdominal wall with mild mesenteric ischemia, could be moderate small-bowel obstruction or int ernal herniation. Assessment: Small bowel obstruction. The etiology is likely scarring from previous abdominal surger ies. I do not believe the patient has ischemic bowel yet as the white count is relatively normal and there is no acidosis and there is no peritonitis. Recommendation: Admit n.p.o., IV fluids, and NG tube. IV antibiotics, serial abdominal exam. We wi ll repeat the abdominal x-ray in the morning and based on the results, we will proceed accordingly. There is a small chance the patient may need surgical intervention. Plan of care discussed in detail with the patient and family. /MODL Voice ID: [id number] Report ID: [id number]
[2021-12-21] MEDS: NA CHLORIDE 0.9% 1,000 ML IV SCH (23:19)
[2021-12-22] MEDS: METRONIDAZOLE 500mg IVPB 500 MG/100 ML BAG IV SCH ×4 (01:42→17:22)
[2021-12-22] MEDS: NITROGLYCERIN 1 GM PKT TD SCH ×3 (01:42→12:00)
[2021-12-22] MEDS: FENTANYL CITR 100 MCG/2 ML IV PRN ×2 (03:50→08:57)
[2021-12-22 05:36] LABS: Absolute Lymphocytes (CBC) 1.3 K/uL (0.7-4.9); Hematocrit 37.6 % (36.0-45.0); Lymphocytes % 19.9 % (15.3-44.8); MPV 9.6 fL (7.6-11.3)
[2021-12-22 06:04] LABS: Bilirubin Direct 0.1 mg/dL (0-0.2); Bilirubin Total 0.5 mg/dL (0.2-1.0); Protein, Total 6.2 g/dL (6.4-8.2)
[2021-12-22] MEDS: ONDANSETRON 4 MG/2 ML VIAL IV PRN (06:31)
--- NOTE | 2021-12-22 08:34 | RAD REPORT ---
EXAM DESCRIPTION: RAD - Abdomen 1 View (KUB) - 12/22/2021 7:23 am CLINICAL HISTORY: sbo COMPARISON: No comparisonsAbdomen 1 View (KUB) dated 12/21/2021; Abdomen 1 View (KUB) dated 05/01/2018 ; ABDOMEN 1 VIEW KUB dated 09/27/2014; ABDOMEN 1 VIEW KUB dated 09/26/2014; Abdomen Pelvis W Contra st dated 12/21/2021 FINDINGS: Enteric tube terminates overlying the stomach. Small bowel dilatation in the left upper qu adrant and central abdomen persists. Some gas is seen within the ascending colon . Surgical cholo i n the epigastrium. No acute osseous abnormality.Visualized lungs are unremarkable.Contrast present wi thin the bowel. IMPRESSION: Small bowel dilatation in the left upper quadrant and central abdomen is similar the CT from 12/21/2021. NG tube tip overlies the stomach and has been advanced.
[2021-12-22] MEDS: PANTOPRAZOLE 40 MG INJ IVP SCH (08:57)
[2021-12-22] MEDS ORDERED: CIPROFLOXACIN 400mg IV 400 MG/200 ML BAG IV SCH (09:00)
[2021-12-22] MEDS: NA CHLORIDE 0.9% 1,000 ML IV SCH ×2 (09:05→20:51)
--- NOTE | 2021-12-22 10:11 | EKG ---
Test Date: 2021-12-21 Test Time: 11:51:38 Test Conductor: BRIGITTE MEASUREMENT RESULTS: Intervals: Rate: 62 CT: 172 QRSD: 74 QT: 438 QTc: 444 [place]: P: 36 CT: 172 QRS: 48 T: 67 INTERPRETIVE STATEMENTS: Normal sinus rhythm Normal ECG Compared to ECG 10/23/2021 23:35:24 Sinus bradycardia no longer present Electronically Signed On 12-22-21 10:10:52 CDT by Reed Moses
--- NOTE | 2021-12-22 11:27 | P.PN ---
Date of Service: 12/22/21 Subjective: Patient is awake and alert and complaining of pain in the abdomen. No bowel movement or flatus noted by the patient. NG tube has put out 300 cc of bilious fluid. Objective: Vital signs are stable and patient is afebrile. White count is normal and there is no left shift. On the chemistry, there is no evidence of acidosis. Abdomen is soft, minimally distended, hypoactive bowel sounds, diffusely tender more on the left side but no evidence of peritonitis. Assessment: Small bowel obstruction Plan: Continue n.p.o., NG tube, IV antibiotic and IV fluids. Encourage ambulation. Repeat abdominal x-ray in a.m., If no improvement patient will need a small bowel series. That will determine whether or not patient needs surgical intervention at that time. We will follow this patient closely. CC: Dr. Aguayo
[2021-12-22] MEDS: MEPERIDINE HCL 25 MG/ML SYR IV PRN ×2 (15:54→20:47)
[2021-12-22] MEDS: ENOXAPARIN 30 MG/0.3 ML SQ SCH (17:23)
[2021-12-22] MEDS: ACETAMINOPHEN 325 MG TABLET PO PRN (22:26)
[2021-12-23] MEDS: METRONIDAZOLE 500mg IVPB 500 MG/100 ML BAG IV SCH ×4 (00:33→16:33)
[2021-12-23] MEDS: MEPERIDINE HCL 25 MG/ML SYR IV PRN ×2 (01:43→16:30)
[2021-12-23] MEDS: NA CHLORIDE 0.9% 1,000 ML IV SCH ×4 (05:08→17:40)
[2021-12-23] MEDS: ACETAMINOPHEN 325 MG TABLET PO PRN ×2 (05:21→22:13)
[2021-12-23 06:13] LABS: Absolute Lymphocytes (CBC) 1.6 K/uL (0.7-4.9); Hematocrit 32.3 % (36.0-45.0); Lymphocytes % 32.4 % (15.3-44.8); RBC Red Blood Cell Count 3.15 M/uL (3.86-4.86)
[2021-12-23 06:35] LABS: Magnesium 1.8 mg/dL (1.8-2.4); Potassium 3.5 mmol/L (3.5-5.1)
[2021-12-23] MEDS: PANTOPRAZOLE 40 MG INJ IVP SCH (08:42)
--- NOTE | 2021-12-23 08:45 | RAD REPORT ---
EXAM DESCRIPTION: RAD - Abdomen W Erect - 12/23/2021 8:18 am CLINICAL HISTORY: SBO Pain COMPARISON: Abdomen W Erect dated 04/30/2018; Abdomen 1 View (KUB) dated 12/22/2021 FINDINGS: Enteric tube coils in the stomach. No small bowel obstruction pattern is seen. Significant gas is seen in the colon. No free air.
--- NOTE | 2021-12-23 09:49 | PN ---
Date of Progress Note: 12/23/2021 Subjective: The patient was seen this morning for followup. No new complaints or problems reported by the patient. She was lying in bed. Objective: Vital Signs: Reviewed. HEENT: Unremarkable. Lungs: Clear to auscultation. Heart: Sounds normal. Abdomen: Soft. Bowel sounds normal. No guarding, rigidity. No distention. The patient's abdomina l tenderness is much better today than yesterday. No rebound tenderness. Extremities: No leg edema. Laboratory Data: White count 5.1, hemoglobin 10.8, platelets 141. Sodium 142, potassium 3.5, chlori de 113, bicarb 24, BUN 16, creatinine 1.25, glucose 79, magnesium 1.8. Impression: 1.Small bowel obstruction. 2.Dementia. 3.Hypertension. 4.Anemia, unspecified. Plan: We will go ahead and continue current IV fluid, IV antibiotics, continue to follow with Dr. Tammie soler. The patient had abdominal x-ray done this morning, we will follow up on the results and follow with general surgeon regarding further recommendation. Continue current DVT prophylaxis. NEVIN/MODL Voice ID: [id number] Report ID: [id number]
--- NOTE | 2021-12-23 12:28 | P.PN ---
Date of Service: 12/23/21 Subjective: Patient has no complaints. Patient had a bowel movement. Objective: Vital signs are stable and patient is afebrile. White count is normal and there is no left shift. There is minimal output from the NG tube. Abdomen is soft, nondistended, nontender and positive bowel sounds. Assessment: Small bowel obstruction improving Plan: Clamp NG tube and begin sips of clear liquids. Check NG residuals every 4 hours. If liquids are tolerated NG tube, can be removed if the residual is less than 100 cc. We will slowly advance the diet as tolerated. Patient is slowly improving. CC: Dr. Aguayo
[2021-12-23] MEDS: ENOXAPARIN 30 MG/0.3 ML SQ SCH (16:35)
[2021-12-23] MEDS: ONDANSETRON 4 MG/2 ML VIAL IV PRN (22:14)
[2021-12-24] MEDS: MEPERIDINE HCL 25 MG/ML SYR IV PRN ×2 (00:40→09:18)
[2021-12-24] MEDS: NA CHLORIDE 0.9% 1,000 ML IV SCH ×3 (03:04→17:10)
[2021-12-24] MEDS: METRONIDAZOLE 500mg IVPB 500 MG/100 ML BAG IV SCH ×5 (05:10→23:35)
--- NOTE | 2021-12-24 07:10 | HP ---
Date of Admission: 12/21/2021 Chief Complaint: Abdominal pain. History Of Present Illness: This is an 86-year-old pleasant female with abdominal pain co mplaint. The patient's daughter contacted me, yesterday informed me about the patient having abdomin al pain for last the 2 to 3 days, and she was advised to bring the patient to . Denies any constipation, but does not remember exactly when was her last bowel movement. No diarrhea. No blee ding. Allergies: TO CODEINE CAUSING ITCHING AND PENICILLIN CAUSING SWELLING AT THE INJECTION SITE. Medications: At home; she takes amlodipine 5 mg daily, aspirin 81 mg daily, Caltrate plus D 1 tablet daily, docusate sodium 100 mg daily, donepezil 23 mg daily, ferrous sulfate 325 mg daily, metoprolol tartrate 25 mg 2 times a day, omeprazole 40 mg daily, simvastatin 40 mg daily in the evening. Review of Systems: GI: As mentioned above. [employer]: Impaired memory. All other systems reviewed and negative. Past Medical History: Significant for senile dementia, hypertension, hyperlipidemia, gastroesophagea l reflux disease, diverticulosis, chronic kidney disease stage 3B, leg edema, osteoarthritis at multi ple sites, and osteopenia. Past Surgical History: Cataract surgery, cholecystectomy, exploratory laparotomy with sigmoid resect ion, stomach stapling, small bowel resection with anastomosis, and . Family History: Father ; had cerebral aneurysm, diabetes, and heart disease. Mother ; had h eart disease and unknown type of . Sister also with hypertension and diabetes. Social History: Prior history of smoking. Use of alcohol negative. Physical Examination: Vital Signs: Temperature 97.6, pulse 70, respiratory rate 16, blood pressure 147/60, oxygen saturati on 94%. Height 4 feet 10 inches, weight 140 pounds. General: Awake, alert, oriented, not in distress. HEENT: Head atraumatic, normocephalic. Conjunctivae nonerythematous. Sclerae white. Mouth, no thr ush or edema noted. Ears/Nose, no mass, lesion, discharge noted. The patient has a nasogastric tube present, draining greenish colored bile. Neck: Supple. No JVD, lymph nodes, bruit, thyromegaly noted. Lungs: Bilateral good equal air entry. Clear to auscultation. No rhonchi. No rales. Heart: Normal heart sounds, no murmur or gallop. Abdomen: Soft, bowel sounds normal. No guarding, rigidity, tenderness, mass, hepatosplenomegaly, dis tention, or bruit noted. The patient has tenderness, scattered all over abdomen, but worse on the le ft side than the right side. No rebound tenderness. Bowel sounds present. No distention. No guard ing. No rigidity. Extremities: No leg edema. No calf tenderness. Skin: No rash, ulcer, cellulitis. Lymphatics: No lymph node enlargement in neck, supraclavicular, infraclavicular region. Neuro: No focal neurological deficit. Chest: Unremarkable. External Genitalia: Deferred. Rectal: Deferred. Laboratory Data: Yesterday; white count 6.6, hemoglobin 13.7, platelets 177. Today; white count 6.4 , hemoglobin 12.7, platelets 168. Yesterday; sodium 139, potassium 4.1, chloride 108, bicarb 25, BUN 16, creatinine 1.42, glucose 107. Liver function tests unremarkable. Lipase 152. This morning; so dium 141, potassium 4, chloride 110, bicarb 27, BUN 14, creatinine 1.29, glucose 103. Liver function tests unremarkable. COVID-19 test negative. CAT scan of the abdomen shows moderate dilatation of s mall bowel loop along the left aspect of the abdomen with mild mesenteric edema likely indicating mec hanical small bowel obstruction. Chest x-ray shows mild and today's x-ray KUB shows small bowel dilatation in the left upper quadrant and central abdomen similar to CAT scan finding from yes terday. Impression: 1.Small bowel obstruction. 2.Senile dementia. 3.Chronic kidney disease, stage 3B. 4.Hypertension. 5.Hyperlipidemia. 6.Gastroesophageal reflux disease. 7.Diverticulosis. 8.Osteoarthritis, multiple sites. Plan: Admit the patient to hospital for further evaluation and management of this problem. The irvin ent is appropriate for inpatient and is expected to spend 2 midnights in hospital. We will go ahead and keep her n.p.o. IV fluid, IV pain medication will be given. Nursing staff informed me that fent anyl was not helping her enough for the pain and was not lasting long enough, so I have discontinued fentanyl this morning and started her on Demerol. We will go ahead and continue empiric antibiotics per order. DVT prophylaxis will be given per order. Home medications will be continued to control b lood pressure and we will go ahead and continue IV Protonix. General surgeon, Dr. Massey was consulte d, who has evaluated her yesterday and will continue to follow up with her. Details and plan of luciana tment discussed with the patient and her daughter. NEVIN/MODL Voice ID: [id number]
[2021-12-24] MEDS: ONDANSETRON 4 MG/2 ML VIAL IV PRN (07:54)
--- NOTE | 2021-12-24 08:10 | P.PN ---
Date of Service: 12/24/21 Subjective: Patient has no complaints. Patient had several bowel movements. Patient is tolerating clear liquid diet. Objective: Vital signs are stable and patient is afebrile. Abdomen is soft, nondistended, nontender and positive bowel sounds. Assessment: Small bowel obstruction improving Plan: We will slowly advance the diet as tolerated. Patient is slowly improving. Encourage ambulation. Advance to full liquid diet for lunch. Patient is cleared for discharge from surgery point of view when tolerating diet. CC: Dr. Aguayo
[2021-12-24] MEDS: PANTOPRAZOLE 40 MG INJ IVP SCH (09:12)
[2021-12-24] MEDS: ACETAMINOPHEN 325 MG TABLET PO PRN ×3 (11:26→23:33)
[2021-12-24] MEDS: ENOXAPARIN 30 MG/0.3 ML SQ SCH (17:10)
[2021-12-25] MEDS: METRONIDAZOLE 500mg IVPB 500 MG/100 ML BAG IV SCH (05:24)
--- NOTE | 2021-12-25 06:22 | PN ---
Date of Progress Note: 12/24/2021 Subjective: The patient was seen this morning for followup. No new complaints or problems reported by the patient. She was lying in bed, tolerating liquid diet very well. No nausea, no vomiting. Objective: Vital Signs: Reviewed. HEENT: Unremarkable. Lungs: Clear to auscultation. Heart: Heart sounds normal. Abdomen: Soft, bowel sounds normal. No guarding, rigidity, tenderness, or distention. Extremities: No leg edema. Impression: 1.Small bowel obstruction, improved. 2.Hypertension. 3.Senile dementia. Plan: We will go ahead and continue to follow with Dr. Massey. We will hopefully advance her diet to day and physical therapy to continue to help ambulate the patient and possible discharge to go home t omorrow. I did call the patient's daughter and discussed details with her and informed her that upon discharge, the patient should continue all her prior home medications and follow up at my office nex t week. NEVIN/MODL Voice ID: [id number] Report ID: [id number]
--- NOTE | 2021-12-25 08:14 | P.PN ---
Date of Service: 12/25/21 Subjective: Patient has no complaints. Patient had several bowel movements. Patient is tolerating full liquid diet. Objective: Vital signs are stable and patient is afebrile. Abdomen is soft, nondistended, nontender and positive bowel sounds. Assessment: Small bowel obstruction improving Plan: Advance diet to GI soft. Encourage ambulation. Patient is cleared for discharge from surgery point of view when tolerating diet. CC: Dr. Aguayo
[2021-12-25] MEDS: PANTOPRAZOLE 40 MG INJ IVP SCH (08:42)
[2021-12-25] MEDS: NA CHLORIDE 0.9% 1,000 ML IV SCH (08:42)
[2021-12-25] MEDS: ONDANSETRON 4 MG/2 ML VIAL IV PRN (08:51)
[2021-12-25 08:56] VITALS: BP 157/62; TEMP 97.9
--- NOTE | 2021-12-26 04:37 | DS ---
Date of Discharge: 12/25/2021 Disposition: Discharged to go home. Physical Examination: HEENT: Unremarkable. Lungs: Clear to auscultation. Heart: Sounds normal. Abdomen: Soft. Bowel sounds normal. No guarding, rigidity, tenderness, distention. Hospital Course: An 86-year-old pleasant female patient, admitted to the hospital with abdominal mike n complaints. Please see dictated H and P for more information. After the patient was evaluated in the emergency room, she was admitted to the hospital with small-bowel obstruction. Dr. Massey from [facility] was consulted. NG tube was placed in the emergency room. It was attached to low inter mittent suction. IV fluid and IV antibiotics were started. The patient's condition improved with co nservative treatment and her small-bowel obstruction problem resolved and she was started on clear li quid diet and it was advanced as she tolerated and overall her condition has improved. She started a mbulating well with physical therapy. This morning when I saw her, she had no complaints and she was feeling fine, ready to go home. The patient was discharged to go home. Final Diagnoses: 1.Small bowel obstruction. 2.Senile dementia. 3.Chronic kidney disease, stage 3B. 4.Hypertension. 5.Hyperlipidemia. 6.Gastroesophageal reflux disease. 7.Diverticulosis. 8.Osteoarthritis, multiple sites. Discharge Medications And Instructions: Continue prior home medications. Followup: Follow at my office next week on Thursday which is 12/31/2021, call office for appointment. Discharge Medication: Prescription will be called in for nausea medication, which will be Zofran 4 m g 3 times a day as needed for nausea, vomiting as nurse contacted me after I wrote the discharge orde r requesting this medication per the patient's request. Laboratory Data: Labs upon admission, white count 6.6, hemoglobin 13.7, platelets 177, and on December 23 white count 5.1, hemoglobin 10.8, platelets 140. Upon admission, sodium 139, potassium 4.1, chl oride 108, bicarb 25, BUN 16, creatinine 1.42, glucose 107. Liver function tests unremarkable. Lipa se 152. NEVIN/MODL Voice ID: [id number] Report ID: [id number]
== END 2021-12-25 12:15 | DRG 390 ==
LOC: ER 10:25 → ERHOLD 14:45 → 2ND 16:40
PROVIDERS: ADMIT Internal Medicine; ATTEND Internal Medicine
DX: K56.609 Unspecified intestinal obstruction, unspecified as to partial versus complete obstruction (principal); E78.5 Hyperlipidemia, unspecified; M19.90 Unspecified osteoarthritis, unspecified site; K21.9 Gastro-esophageal reflux disease without esophagitis; I12.9 Hypertensive chronic kidney disease with stage 1 through stage 4 chronic kidney disease, or unspecified chronic kidney disease; N18.32 Chronic kidney disease, stage 3b; D64.9 Anemia, unspecified; F03.90 Unspecified dementia, unspecified severity, without behavioral disturbance, psychotic disturbance, mood disturbance, and anxiety; Z88.5 Allergy status to narcotic agent; Z88.0 Allergy status to penicillin; Z90.49 Acquired absence of other specified parts of digestive tract; Z98.84 Bariatric surgery status; Z79.82 Long term (current) use of aspirin; Z79.899 Other long term (current) drug therapy; Z20.822 Contact with and (suspected) exposure to COVID-19
CPT/HCPCS: 36415; 71045; 74018; 74019; 74177; 80048; 80076; 83605; 83690; 83735; 84484; 85025; 87086; 87088; 93005; 96361; 96365; 96367; 96375; 97162; 99285; C9113; J0744; J1650; J2175; J2405; J3010; J7030; Q9967; U0003

== ENCOUNTER 2022-03-14 13:49 | Inpatient (IN) | payer OTHER ==
[2022-03-14] MEDS ORDERED: MORPHINE 4 MG/ML SYR ONE ×2 (14:45→18:10)
[2022-03-14] MEDS ORDERED: NA CHLORIDE 0.9% 500 ML ONE (14:45)
[2022-03-14] MEDS ORDERED: ONDANSETRON 4 MG/2 ML VIAL ONE (14:45)
[2022-03-14 14:57] LABS: Urine Blood Negative (Negative); Urine Glucose Negative (Negative); Urine Protein Negative (Negative)
[2022-03-14 15:05] LABS: Absolute Lymphocytes (CBC) 1.9 K/uL (0.7-4.9); Hematocrit 40.1 % (36.0-45.0); Lymphocytes % 33.2 % (15.3-44.8); MCV 99.5 fL (80-100); MPV 9.5 fL (7.6-11.3); RBC Red Blood Cell Count 4.03 M/uL (3.86-4.86)
[2022-03-14 15:19] LABS: Urine Bacteria <20 /HPF (<20); Urine RBC <5 /HPF (NONE SEEN)
[2022-03-14 15:26] LABS: Albumin 3.4 g/dL (3.4-5.0); Bilirubin Total 0.4 mg/dL (0.2-1.0); Potassium 4.4 mmol/L (3.5-5.1)
--- NOTE | 2022-03-14 16:02 | RAD REPORT ---
EXAM DESCRIPTION: CTAbdomen Pelvis W Contrast - 03/14/2022 3:51 pm CLINICAL HISTORY: Abdominal pain. Abdominal pain, acute, nonlocalized COMPARISON: Abdomen Pelvis W Contrast dated 12/21/2021; Abdomen Pelvis W Contrast dated 05/01/2018 ; Abdomen Pelvis W Contrast dated 04/25/2018; CT ABD PELVIS W CONTRAST dated 07/18/2014 TECHNIQUE: Biphasic CT imaging of the abdomen and pelvis was performed with 100 ml non-ionic IV cont rast. All CT scans are performed using dose optimization technique as appropriate and may include automated exposure control or mA/KV adjustment according to patient size. FINDINGS: The lung bases are clear. Cholecystectomy with mild biliary dilatation. Postsurgical changes about the stomach noted. No aggres sive liver lesion. The spleen, pancreas are within normal limits. Mild adrenal gland thickening bilat erally. Small benign cyst seen kidney. Several stool filled small bowel loops are present which are dilated an may be adhesed to the anterio r abdominal wall. There is edema and fluid small bowel mesenteric and left lower quadrant abdomen. T he appendix is normal. No evidence of significant lymphadenopathy. Atherosclerosis. No suspicious bony findings. IMPRESSION: Stool filled small bowel loops are present which are mildly dilated and appears adhesed to the anterior abdominal wall. There is edema and fluid in the small bowel mesenteric left lower rubi drant. Findings may indicate developing partial mechanical obstruction.
--- NOTE | 2022-03-14 17:18 | ER ---
Nurse's Notes [facility] Name: Danielle Najera Age: 86 yrs Sex: Female : 1935 Arrival Date: 03/14/2022 Time: 13:51 Bed 20 Private MD: Rox Aguayo C Diagnosis: Partial Small Bowel Obstruction Presentation: 03/14 13:59 Chief complaint: Patient states: Lower ABD pain that began today, states nausea, but vg1 denies V/D. Coronavirus screen: Vaccine status: Patient reports receiving the 2nd dose of the covid vaccine. Client denies travel out of the [place] in the last 14 days. Ebola Screen: Patient denies exposure to infectious person. Patient denies travel to an Ebola-affected area in the 21 days before illness onset. Initial Sepsis Screen: Does the patient meet any 2 criteria? No. Patient's initial sepsis screen is negative. Does the patient have a suspected source of infection? No. Patient's initial sepsis screen is negative. Risk Assessment: Do you want to hurt yourself or someone else? Patient reports no desire to harm self or others. Onset of symptoms was March 14, 2022. 13:59 Method Of Arrival: Ambulatory vg1 13:59 Acuity: CANDIE 3 vg1 Triage Assessment: 14:00 General: Appears in no apparent distress. comfortable, Behavior is calm, cooperative. vg1 Pain: Complains of pain in right lower quadrant and left lower quadrant Pain currently is 3 out of 10 on a pain scale. GI: Reports nausea. Historical: - Allergies: 14:00 Codeine; vg1 14:00 PENICILLINS; vg1 - Home Meds: 14:00 Lisinopril Oral [Active]; Simvastatin Oral [Active]; Metoprolol Tartrate Oral [Active]; vg1 - PMHx: 14:00 Dementia; Diverticulitis; High Cholesterol; Hypertension; vg1 - PSHx: 14:00 bowel resection; section; Cholecystectomy; stomach stapled and banded and vg1 reversed; - Immunization history:: Client reports receiving the 2nd dose of the Covid vaccine. - Social history:: Smoking status: Patient denies any tobacco usage or history of. Screenin:07 Abuse screen: Denies threats or abuse. Denies injuries from another. Nutritional ocampo screening: No deficits noted. Tuberculosis screening: No symptoms or risk factors identified. Fall Risk IV access (20 points). Assessment: 15:07 General: Appears in no apparent distress. Behavior is calm, cooperative. Pain: ocampo Complains of pain in abdomen. GI: Reports nausea, Pain is 7 out of 10 on a pain scale. 19:11 General: Appears in no apparent distress. comfortable, Behavior is calm, cooperative. lg3 Pain: Complains of pain in abdomen Pain currently is 4 out of 10 on a pain scale. Neuro: No deficits noted. Claros Agitation-Sedation Scale (RASS): 0 - Alert and Calm Level of Consciousness is awake, alert, obeys commands, Oriented to person, place, time, situation. Cardiovascular: No deficits noted. Denies chest pain, shortness of breath, Capillary refill < 3 seconds Clubbing of nail beds is absent JVD is absent Patient's skin is warm and dry. Respiratory: No deficits noted. Airway is patent Trachea midline Respiratory effort is even, unlabored, Respiratory pattern is regular, symmetrical. GI: Reports lower abdominal pain, upper abdominal pain. : No deficits noted. No signs and/or symptoms were reported regarding the genitourinary system. EENT: No deficits noted. No signs and/or symptoms were reported regarding the EENT system. Derm: No deficits noted. No signs and/or symptoms reported regarding the dermatologic system. Skin is intact, is thin, Skin is dry, Skin temperature is warm. Musculoskeletal: No deficits noted. No signs and/or symptoms reported regarding the musculoskeletal system. Circulation, motion, and sensation intact. Range of motion: intact in all extremities. Vital Signs: 13:59 BP 138 / 86; Pulse 64; Resp 16; Temp 98.6(TE); Pulse Ox 98% on R/A; Weight 70.31 kg; vg1 Height 4 ft. 9 in. (144.78 cm); Pain 3/10; 16:30 BP 119 / 69; Pulse 80; Resp 17; Pulse Ox 100% ; ocampo 18:20 BP 114 / 53; Pulse 67; Resp 16; Pulse Ox 96% ; ocampo 19:11 BP 100 / 87; Pulse 53; Resp 16; Pulse Ox 96% on R/A; lg3 13:59 Body Mass Index 33.54 (70.31 kg, 144.78 cm) vg1 ED Course: 13:51 Patient arrived in ED. jj6 13:57 Wade Schwartz PA is PHCP. cp 13:57 Wade Carrera MD is Attending Physician. cp 14:00 Triage completed. vg1 14:00 Arm band placed on. vg1 14:11 Diana Grove, RN is Primary Nurse. ocampo 14:58 Urine collected: clean catch specimen, clear. tm3 15:07 Fall risk band placed. ocampo 15:07 No provider procedures requiring assistance completed. Inserted saline lock: 20 gauge ocampo in left antecubital area, using aseptic technique. 15:52 Abdomen In Process Unspecified. EDMS 16:37 Rox Aguayo MD is Private Physician. cp 17:15 Brian Massey MD is Hospitalizing Provider. cp 17:15 Hospitalizing Provider role handed off by Brian Massey MD cp 17:15 Rox Aguayo MD is Hospitalizing Provider. cp 17:40 Lipase Sent. ocampo 17:40 Liver (Hepatic) Function Sent. ocampo 17:40 Liver (Hepatic) Function Sent. ocampo 18:18 SARS-COV-2 RT PCR (Document "Date of Onset" if Symptomatic) Sent. ocampo 20:00 Patient admitted, IV remains in place. intact, No redness/swelling at site. lg3 Administered Medications: 15:04 Drug: NS 0.9% 500 ml Route: IV; Rate: 125 ml/hr; Site: left antecubital; ocampo 17:37 Follow up: IV Status: Completed infusion ocampo 18:19 Follow up: IV Status: Completed infusion ocampo 15:05 Drug: morphine 2 mg Route: IV; Rate: calculated rate; Site: left antecubital; ocampo 15:06 Follow up: Response: No adverse reaction ocampo 18:19 Follow up: Response: Pain is unchanged, physician notified ocampo 18:19 Follow up: Response: Pain is unchanged, physician notified ocampo 15:05 Drug: morphine 2 mg Route: IV; Rate: calculated rate; Site: left antecubital; ocampo 15:06 Drug: Zofran (Ondansetron) 4 mg Route: IVP; Site: left antecubital; ocampo 19:10 Follow up: Response: No adverse reaction lg3 17:36 Drug: metroNIDAZOLE 500 mg Volume: 100 ml; Route: IVPB; Infused Over: 30 mins; Site: ocampo left antecubital; 19:04 Follow up: IV Status: Completed infusion ocampo 18:18 Drug: morphine 4 mg Route: IVP; Infused Over: 4 mins; Site: left antecubital; ocampo 18:19 Follow up: Response: No adverse reaction ocampo 19:03 Drug: Cipro (ciprofloxacin) 400 mg Volume: 200 ml; Route: IVPB; Infused Over: 60 mins; ocampo Site: left antecubital; 19:03 Follow up: IV Status: Completed infusion ocampo Medication: 15:07 VIS not applicable for this client. ocampo Outcome: 17:17 Decision to Hospitalize by Provider. cp 19:57 Admitted to Med/surg accompanied by tech, via wheelchair, room 232, Report called to 3 Memo 19:57 Condition: stable 19:57 Instructed on the need for admit. 21:10 Patient left the ED. 3 Signatures: Dispatcher [employer] EDMS Jian Mckeon tm3 Wade Schwartz PA PA cp Kelsey Mckeon RN RN lg3 Mela Millard RN RN vg1 Asiya Caballeroj6 Diana Grove RN RN Corrections: (The following items were deleted from the chart) 15:05 15:04 morphine 4 mg IV at calculated rate in left antecubital ocampo ocampo
--- NOTE | 2022-03-14 17:18 | EDPHYS ---
Physician Documentation [facility] Name: Danielle Najera Age: 86 yrs Sex: Female : 1935 Arrival Date: 03/14/2022 Time: 13:51 Bed 20 Private MD: Rox Aguayo C ED Physician Wade Carrera HPI: 03/14 14:35 This 86 yrs old Female presents to ER via Ambulatory with complaints of S/S of cp Diverticulitus. 14:35 The patient presents with abdominal pain. cp 14:35 Onset: The symptoms/episode began/occurred this morning. cp 14:35 Associated signs and symptoms: Pertinent positives: nausea, Pertinent negatives: blood cp in stools, chest pain, constipation, diarrhea, dysuria, fever, vomiting. The symptoms are described as constant. 14:35 Severity of pain: in the emergency department the pain is unchanged despite home cp interventions. Historical: - Allergies: 14:00 Codeine; vg1 14:00 PENICILLINS; vg1 - Home Meds: 14:00 Lisinopril Oral [Active]; Simvastatin Oral [Active]; Metoprolol Tartrate Oral [Active]; vg1 - PMHx: 14:00 Dementia; Diverticulitis; High Cholesterol; Hypertension; vg1 - PSHx: 14:00 bowel resection; section; Cholecystectomy; stomach stapled and banded and vg1 reversed; - Immunization history:: Client reports receiving the 2nd dose of the Covid vaccine. - Social history:: Smoking status: Patient denies any tobacco usage or history of. ROS: 14:45 Constitutional: Negative for body aches, chills, fever, poor PO intake. cp 14:45 Eyes: Negative for injury, pain, redness, and discharge. cp 14:45 ENT: Negative for drainage from ear(s), ear pain, sore throat, difficulty swallowing, difficulty handling secretions. 14:45 Cardiovascular: Negative for chest pain, edema, palpitations. 14:45 Respiratory: Negative for cough, shortness of breath, wheezing. 14:45 Abdomen/GI: Positive for abdominal pain, nausea, Negative for vomiting, diarrhea, constipation, black/tarry stool, rectal bleeding. 14:45 Back: Negative for pain at rest, pain with movement. 14:45 Neuro: Negative for altered mental status, headache, weakness. 14:45 All other systems are negative. Exam: 14:50 Constitutional: The patient appears in no acute distress, alert, awake, cp non-diaphoretic, non-toxic, well developed, well nourished, uncomfortable. 14:50 Head/Face: Normocephalic, atraumatic. cp 14:50 Eyes: Periorbital structures: appear normal, Conjunctiva: normal, no exudate, no injection, Sclera: no appreciated abnormality, Lids and lashes: appear normal, bilaterally. 14:50 ENT: External ear(s): are unremarkable, Nose: is normal, Mouth: Lips: moist, Oral mucosa: pink and intact, moist, Posterior pharynx: Airway: no evidence of obstruction, patent. 14:50 Chest/axilla: Inspection: normal, Palpation: is normal, no crepitus, no tenderness. 14:50 Cardiovascular: Rate: normal, Rhythm: regular, Edema: is not appreciated, JVD: is not appreciated. 14:50 Respiratory: the patient does not display signs of respiratory distress, Respirations: normal, no use of accessory muscles, no retractions, labored breathing, is not present, Breath sounds: are clear throughout, no decreased breath sounds, no stridor, no wheezing. 14:50 Abdomen/GI: Inspection: abdomen appears normal, Bowel sounds: active, all quadrants, Palpation: soft, in all quadrants, moderate abdominal tenderness, in the right lower quadrant and left lower quadrant, rebound tenderness, is not appreciated, involuntary guarding, is not appreciated. 14:50 Back: CVA tenderness, is absent. 14:50 Neuro: Orientation: to person, place \\T\\ time. Mentation: is normal, Motor: moves all fours, strength is normal, Sensation: is normal. Vital Signs: 13:59 BP 138 / 86; Pulse 64; Resp 16; Temp 98.6(TE); Pulse Ox 98% on R/A; Weight 70.31 kg; vg1 Height 4 ft. 9 in. (144.78 cm); Pain 3/10; 16:30 BP 119 / 69; Pulse 80; Resp 17; Pulse Ox 100% ; ocampo 18:20 BP 114 / 53; Pulse 67; Resp 16; Pulse Ox 96% ; ocampo 19:11 BP 100 / 87; Pulse 53; Resp 16; Pulse Ox 96% on R/A; lg3 13:59 Body Mass Index 33.54 (70.31 kg, 144.78 cm) vg1 MDM: 14:06 Patient medically screened. cp 15:00 Differential diagnosis: bowel obstruction, diverticulitis, gastritis, non-specific abd cp pain. 17:00 Data reviewed: vital signs, nurses notes, lab test result(s), radiologic studies, CT cp scan. 17:00 Counseling: I had a detailed discussion with the patient and/or guardian regarding: the cp historical points, exam findings, and any diagnostic results supporting the discharge/admit diagnosis, lab results, radiology results, the need for further work-up and treatment in the hospital. Response to treatment: the patient's symptoms have mildly improved after treatment. 17:31 Physician consultation: Colt Obando MD was called at 17:20, was contacted at 17:20, cp would like admission per Dr. Rox Aguayo MD will consult on patient as DR Massey is not available. 03/14 14:27 Order name: CBC with Diff; Complete Time: 15:39 cp 03/14 14:27 Order name: CMP; Complete Time: 15:39 cp / 15:39 Interpretation: Normal except: BUN 19; CRE 1.42; GFR 36. cp 03/14 14:27 Order name: Lipase; Complete Time: 15:39 cp 03/14 14:27 Order name: Urine Microscopic Only; Complete Time: 15:39 cp / 14:58 Order name: Urine Dipstick-Ancillary; Complete Time: 15:39 EDMS 03/14 17:04 Order name: Lactate cp 03/14 17:04 Order name: Procalcitonin cp 03/14 17:04 Order name: Blood Culture Adult (2) cp / 17:33 Order name: Basic Metabolic Panel EDMS 03/14 17:33 Order name: Basic Metabolic Panel EDMS 03/14 17:33 Order name: CBC with Automated Diff EDMS 03/14 17:33 Order name: CBC with Automated Diff EDMS 03/14 17:33 Order name: Lipase EDMS 03/14 17:33 Order name: Lipase EDMS 03/14 14:27 Order name: CT Abd/Pelvis - IV Contrast Only cp 03/14 14:27 Order name: IV Saline Lock; Complete Time: 15:06 cp 03/14 14:27 Order name: Labs collected and sent; Complete Time: 15:06 cp 03/14 14:31 Order name: Abdomen ; Complete Time: 16:35 EDIN 03/14 16:36 Interpretation: Report reviewed. cp 03/14 17:33 Order name: CONS Physician Consult EDIN 03/14 17:33 Order name: NPO EDIN 03/14 17:33 Order name: Liver (Hepatic) Function EDIN 03/14 17:33 Order name: Liver (Hepatic) Function EDIN 03/14 17:36 Order name: SARS-COV-2 RT PCR (Document "Date of Onset" if Symptomatic) 03/14 19:04 Order name: SARS-COV-2 RT PCR EDIN 03/14 14:27 Order name: Urine Dipstick-Ancillary (obtain specimen); Complete Time: 15:07 cp 03/14 16:37 Order name: NPO; Complete Time: 18:26 cp Administered Medications: 15:04 Drug: NS 0.9% 500 ml Route: IV; Rate: 125 ml/hr; Site: left antecubital; ocampo 17:37 Follow up: IV Status: Completed infusion ocampo 18:19 Follow up: IV Status: Completed infusion ocampo 15:05 Drug: morphine 2 mg Route: IV; Rate: calculated rate; Site: left antecubital; ocampo 15:06 Follow up: Response: No adverse reaction ocampo 18:19 Follow up: Response: Pain is unchanged, physician notified ocampo 18:19 Follow up: Response: Pain is unchanged, physician notified ocampo 15:05 Drug: morphine 2 mg Route: IV; Rate: calculated rate; Site: left antecubital; ocampo 15:06 Drug: Zofran (Ondansetron) 4 mg Route: IVP; Site: left antecubital; ocampo 19:10 Follow up: Response: No adverse reaction lg3 17:36 Drug: metroNIDAZOLE 500 mg Volume: 100 ml; Route: IVPB; Infused Over: 30 mins; Site: ocampo left antecubital; 19:04 Follow up: IV Status: Completed infusion ocampo 18:18 Drug: morphine 4 mg Route: IVP; Infused Over: 4 mins; Site: left antecubital; ocampo 18:19 Follow up: Response: No adverse reaction ocampo 19:03 Drug: Cipro (ciprofloxacin) 400 mg Volume: 200 ml; Route: IVPB; Infused Over: 60 mins; ocampo Site: left antecubital; 19:03 Follow up: IV Status: Completed infusion ocampo Disposition Summary: 03/14/22 17:17 Hospitalization Ordered Hospitalization Status: Inpatient Admission cp Provider: Rox Aguayo cp Location: Telemetry/MedSurg (Inpatient) cp Condition: Stable cp Problem: new cp Symptoms: have improved cp Bed/Room Type: Standard cp Room Assignment: 232(03/14/22 19:04) Diagnosis - Partial Small Bowel Obstruction cp Forms: - Medication Reconciliation Form cp - SBAR form cp Addendum: 03/28/2022 13:52 Co-signature as Attending Physician, Wade Carrera MD I agree with the assessment and c ocampo plan of care. Signatures: Dispatcher [employer] Mansi Hubbard RN RN Wade Esparza MD MD cha Page, Corey, PA PA Mela Colunga RN RN vg1 Meka-StagerDiana RN RN ha Gibson, Lacie RN lg3 Corrections: (The following items were deleted from the chart) 03/14 17:20 17:17 Ileus, unspecified cp cp 19:04 17:17 cp dw
[2022-03-14] MEDS ORDERED: NA CHLORIDE 0.9% 0 ML ONE (17:29)
[2022-03-14] MEDS ORDERED: CIPROFLOXACIN 400mg IV 400 MG/200 ML BAG IV ONE (17:29)
[2022-03-14] MEDS ORDERED: METRONIDAZOLE 500mg IVPB 500 MG/100 ML BAG IV ONE (17:30)
[2022-03-14] MEDS: CIPROFLOXACIN 400mg IV 400 MG/200 ML BAG IV SCH (21:00)
[2022-03-14] MEDS: D5 0.9 NS 1,000 ML IV SCH (21:21)
[2022-03-14] MEDS: ONDANSETRON 4 MG/2 ML VIAL IV PRN (22:08)
[2022-03-14] MEDS: MORPHINE 4 MG/ML SYR IV PRN (22:08)
[2022-03-14 22:15] VITALS: BMI 31.7
[2022-03-15] MEDS: METRONIDAZOLE 500mg IVPB 500 MG/100 ML BAG IV SCH ×3 (00:41→17:04)
[2022-03-15 06:37] LABS: Absolute Lymphocytes (CBC) 1.5 K/uL (0.7-4.9); Hematocrit 35.8 % (36.0-45.0); Lymphocytes % 33.5 % (15.3-44.8); MCV 98.4 fL (80-100); RBC Red Blood Cell Count 3.64 M/uL (3.86-4.86)
[2022-03-15 06:54] LABS: Albumin 3.2 g/dL (3.4-5.0); Bilirubin Direct 0.2 mg/dL (0-0.2); Bilirubin Total 0.5 mg/dL (0.2-1.0); Potassium 4.2 mmol/L (3.5-5.1); Protein, Total 6.8 g/dL (6.4-8.2)
[2022-03-15] MEDS: D5 0.9 NS 1,000 ML IV SCH ×2 (10:09→20:40)
[2022-03-15] MEDS: CIPROFLOXACIN 400mg IV 400 MG/200 ML BAG IV SCH ×2 (10:10→21:00)
[2022-03-15] MEDS ORDERED: SODIUM CHLORIDE 0.9% 10ML INJ IV PRN (10:22)
[2022-03-15] MEDS ORDERED: PANTOPRAZOLE 40 MG INJ IVP ONE (11:00)
[2022-03-15] MEDS: AMLODIPINE 5 MG TAB PO SCH (11:51)
[2022-03-15] MEDS: ENOXAPARIN 30 MG/0.3 ML SQ SCH (17:08)
[2022-03-15] MEDS ORDERED: VANCOMYCIN 1.25 GM in NA CHLORIDE 0.9% 250 ML IVPB ONE (21:00)
[2022-03-15] MEDS: METOPROLOL TAR 25 MG TAB PO SCH (21:01)
[2022-03-15] MEDS ORDERED: NA CHLORIDE 0.9% 250 ML ONE (21:50)
[2022-03-15] MEDS ORDERED: VANCOMYCIN 500 MG/VIAL ONE (21:50)
[2022-03-15] MEDS ORDERED: VANCOMYCIN 1 GM/VIAL ONE (21:50)
[2022-03-16] MEDS: METRONIDAZOLE 500mg IVPB 500 MG/100 ML BAG IV SCH ×3 (00:37→17:47)
[2022-03-16] MEDS: AMLODIPINE 5 MG TAB PO SCH (10:07)
[2022-03-16] MEDS: METOPROLOL TAR 25 MG TAB PO SCH ×2 (10:08→20:25)
[2022-03-16] MEDS: PANTOPRAZOLE 40 MG INJ IVP SCH (10:29)
[2022-03-16 11:10] LABS: Albumin 2.9 g/dL (3.4-5.0); Bilirubin Total 0.4 mg/dL (0.2-1.0); Magnesium 1.9 mg/dL (1.8-2.4); Protein, Total 5.9 g/dL (6.4-8.2)
[2022-03-16] MEDS: D5 0.9 NS 1,000 ML IV SCH ×2 (11:28→20:26)
[2022-03-16] MEDS: CIPROFLOXACIN 400mg IV 400 MG/200 ML BAG IV SCH ×2 (11:29→20:26)
--- NOTE | 2022-03-16 11:35 | CON ---
Date of Consultation: 03/15/2022 Brief History Of Present Illness: The patient is an 86-year-old female with history and co mplaints of abdominal pain beginning prior to admission. She states that the pain began in her abdom en generally. It was associated with some nausea, no vomiting. She had had a bowel movement as of and continues to pass gas and bowel movements as of the morning as well. She states that sh e does have global abdominal pain worse in the bilateral lower quadrants and mild distention, but oth erwise she has no complaints and her pain has gotten significantly improved since being brought to [facility] with pain medication and supplementation. Past Medical History: Significant for senile dementia, hypertension, hyperlipidemia, GERD, diverticu losis, CKD stage 3B, leg edema, osteoarthritis, osteopenia. Past Surgical History: Includes cataract surgery, cholecystectomy, exploratory laparotomy with sigmo id resection, gastric sleeve resection, small bowel resection with anastomosis, , previous g astric band removal. Family History: Significant for her father with cerebral aneurysm, diabetes, heart disease. Mo ther had heart disease, hypertension, diabetes. She has a positive significant 30+ pack-year history of smoking. She denies alcohol or recreational drug use. Allergies: TO CODEINE WHICH CAUSES ITCHING. PENICILLIN CAUSES SWELLING AT THE INJECTION SITE. Medications: At home included lisinopril, simvastatin, metoprolol, Caltrate, aspirin, Colace, donepe zil, ferrous sulfate, omeprazole. Review of Systems: A 10-point review of systems, the patient denies otherwise. Physical Examination: Vital Signs: At the time of my examination; her BMI is 31.7. Her blood pressure was 145/67, pulse 6 0, respiratory rate 16, temperature 98.1, SpO2 93% on room air. General: She is awake, alert, and oriented, but she has poor insight into much of her medical histor y and is distractible and repetitive in some of her conversation consistent with level of dementia. HEENT: She is otherwise normocephalic. Her sclerae were anicteric. Mucous membranes moist. Oropha rynx is clear. Neck: Supple without JVD. Chest: Normal expansion and excursion. Cardiovascular: Regular rate and rhythm. Pulmonary: Clear to auscultation bilaterally. Abdomen: Soft with global tenderness to palpation mild. No rebound. No guarding. No focal periton itis. Well-healed surgical scars are evident. Laboratory Data: White blood cell count 4.4, hemoglobin was 12.3, hematocrit was 35.8, platelet coun t was 148. Her sodium 140, potassium 4.2, chloride 108, carbon dioxide 28, BUN 13, creatinine 1.46, glucose was 93. Lactic acid was 0.6 on admission. Her AST 163, ALT 128, alkaline phosphatase 88. P rocalcitonin less than 0.05 on admission. She had imaging performed, which included a CT of the abdo men and pelvis on 03/14/2022, officially read as stool-filled small bowel loops present which were mi ldly dilated and appeared adhesed to the anterior bowel wall. There was edema and fluid in the small bowel mesenteric left lower quadrant. Findings may indicate developing partial mechanical obstructi on. Assessment And Plan: This is an 86-year-old woman who comes in with signs and symptoms of early part ial small bowel obstruction. 1.She continues to have bowel function. As such, I recommend serial abdominal exams. Okay to start ice chips at this point. No need for NG tube decompression as the patient has no nausea or vomiting since admission by report. 2.Continue medical management per Dr. Aguayo. 3.I have explained the risks, benefits, and alternatives of operative versus non operative managemen t. We will attempt nonoperative management and if the patient resolves, she will likely follow up [facility] Dr. Aguayo as an outpatient. The patient agrees to proceed as indicated. Thank you for this interesting consult. MEKHI/ANITA Voice ID: [id number] Report ID: [id number]
--- NOTE | 2022-03-16 14:36 | P.PN ---
Subjective Date of Service: 03/16/22 Subjective: Improving (patient remains confused, but conversive, no complaints, passing gas, had BM. Pain improved, no emesis or nausea) Physical Examination - Vital Signs Temperature: 98.7 F Blood Pressure: 110/51 Pulse: 58 Respirations: 16 Pulse Ox (%): 95 - Physical Exam General: Alert, In no apparent distress, Cooperative, Confused Respiratory: Clear to auscultation bilaterally, Normal air movement Cardiovascular: Regular rate/rhythm Gastrointestinal: Other (soft, mild LLQ TTP, less distended, no rebound, no guarding, no peritonitis.) Assessment And Plan - Current Problems (Diagnosis) (1) Partial small bowel obstruction Current Visit: Yes Status: Acute Plan: - advance to clear liquid diet - serial exams - ambulate only with assist - incentive spirometry - possible DC in AM - continue medical management per Dr. Aguayo
--- NOTE | 2022-03-16 15:04 | PN ---
Date of Progress Note: 03/16/2022 Subjective: The patient was seen this morning for followup. No new complaints or problems reported by the patient. Lying in bed, not in distress. She has nausea, but no vomiting. Abdominal pain is still present, but less today compared to yesterday and she reports that she did have bowel movement sometime last night. Objective: Vital Signs: Reviewed. HEENT: Unremarkable. Lungs: Clear to auscultation. Heart: Sounds normal. Abdomen: Soft. Bowel sounds normal. No guarding, rigidity. No distention. Presence of tenderness in all 4 quadrants of abdomen, but less today than yesterday. No rebound tenderness. Extremity: No leg edema. Impression: 1. Partial small bowel obstruction. 2. Hypertension. 3. Abnormal liver function test. Plan: We will go ahead and continue current medication. Continue current empiric antibiotic. Yesterday evening, nurse reported blood culture growing gram-positive cocci, we are not sure whether this is indicating true sepsis or it is a contamination and we will have to wait until final report comes back before we make a decision on it. Continue to follow up with general surgeon. Blood work was ordered to be done this morning and result pending. NEVIN/MODL Voice ID: [id number] Report ID: [id number] SUMMER
[2022-03-16] MEDS: ENOXAPARIN 30 MG/0.3 ML SQ SCH (17:51)
[2022-03-16] MEDS: MORPHINE 4 MG/ML SYR IV PRN (20:25)
[2022-03-17] MEDS: METRONIDAZOLE 500mg IVPB 500 MG/100 ML BAG IV SCH ×3 (00:45→18:36)
[2022-03-17] MEDS ORDERED: D5 0.9 NS 1,000 ML IV SCH (07:14)
--- NOTE | 2022-03-17 08:02 | RAD REPORT ---
EXAM DESCRIPTION: RAD - Abdomen W Erect - 03/17/2022 7:37 am CLINICAL HISTORY: SBO Pain COMPARISON: Abdomen W Erect dated 12/23/2021; Abdomen Pelvis W Contrast dated 03/14/2022 FINDINGS: The bowel gas pattern is non-obstructive. No evidence of free air or pneumatosis. Postsurg ical changes are present in the abdomen. Moderate dextroscoliosis lumbar spine. IMPRESSION: Since 03/14/2022, small bowel obstruction appears to have resolved.
[2022-03-17] MEDS ORDERED: VANCOMYCIN 1 GM in NA CHLORIDE 0.9% 250 ML IVPB SCH (09:00)
[2022-03-17] MEDS: METOPROLOL TAR 25 MG TAB PO SCH ×2 (09:00→21:12)
[2022-03-17] MEDS: CIPROFLOXACIN 400mg IV 400 MG/200 ML BAG IV SCH ×2 (09:54→21:11)
[2022-03-17] MEDS: PANTOPRAZOLE 40 MG INJ IVP SCH (09:56)
[2022-03-17] MEDS: AMLODIPINE 5 MG TAB PO SCH (09:57)
[2022-03-17] MEDS ORDERED: VANCOMYCIN 750 MG in NA CHLORIDE 0.9% 150 ML IVPB SCH (10:00)
--- NOTE | 2022-03-17 11:15 | RAD REPORT ---
EXAM DESCRIPTION: CT - Head Brain Wo Cont - 03/17/2022 11:06 am CLINICAL HISTORY: fell on head at home Fall, trauma, head injury. COMPARISON: No comparisons TECHNIQUE: All CT scans are performed using dose optimization technique as appropriate and may inclu de automated exposure control or mA/KV adjustment according to patient size. FINDINGS: No intracranial hemorrhage, hydrocephalus or extra-axial fluid collection.Mild generalized brain atrophy is present with mild periventricular and deep white matter chronic microvascular ische bhavin changes.No areas of brain edema or evidence of midline shift. The paranasal sinuses and mastoids are clear. The calvarium is intact. IMPRESSION: No acute intracranial abnormality.
[2022-03-17] MEDS: ACETAMINOPHEN 500 MG TAB PO PRN ×2 (12:00→23:15)
[2022-03-17 13:14] VITALS: O2SAT 95
[2022-03-17] MEDS: ONDANSETRON 4 MG/2 ML VIAL IV PRN (14:00)
--- NOTE | 2022-03-17 15:11 | HP ---
Date of Admission: 03/15/2022 Chief Complaint: Abdominal pain. History Of Present Illness: This is an 86-year-old very pleasant female patient with multiple prior episodes of diverticulitis and small bowel obstruction, came into emergency room yesterday with few days history of abdominal pain and reported that yesterday her pain got lot worse, so she came into the emergency room. After she was evaluated in the ER, she was admitted to hospital with partial small bowel obstruction. The patient denies any fever, chills. No nausea, no vomiting, but reports that she has been having some diarrhea. No blood in stool. Allergies: TO CODEINE CAUSING ITCHING AND PENICILLIN CAUSING SWELLING AT THE INJECTION SITE. Medications: Amlodipine 5 mg daily, aspirin 81 mg daily, Caltrate plus D 1 tablet daily, docusate sodium 100 mg daily, donepezil 23 mg daily, ferrous sulfate 325 mg daily, metoprolol tartrate 25 mg 2 times a day, omeprazole 40 mg daily, simvastatin 40 mg daily in the evening. Review of Systems: GI: As mentioned above. All other systems reviewed and negative. Past Medical History: Significant for senile dementia, hypertension, hyperlipidemia, gastroesophageal reflux disease, diverticulosis, chronic kidney disease, leg edema, osteoarthritis, osteopenia. Past Surgical History: Cataract surgery, cholecystectomy, exploratory laparotomy with sigmoid resection, stomach stapling, gastrostomy, small bowel resection with end-to-end anastomosis, . Family History: Father had cerebral aneurysm, diabetes, and heart disease. Mother had heart disease and unknown type of cancer. Brother had hypertension. Sister, hypertension and diabetes. Social History: Prior history of smoking. No illicit drugs. Use of alcohol negative. Physical Examination: Vital Signs: Temperature 97.8, pulse 81, respiratory rate 16, blood pressure 137/63, oxygen saturation 93%. Height 4 feet 9 inches, weight 146 pounds. General: Awake, alert, oriented, not in distress. HEENT: Head atraumatic, normocephalic. Conjunctivae nonerythematous. Sclerae white. Mouth, no thrush or edema noted. Ears/Nose, no mass, lesion, discharge noted. Neck: Supple. No JVD, lymph nodes, bruit, thyromegaly noted. Lungs: Bilateral good equal air entry. Clear to auscultation. No rhonchi. No rales. Heart: Normal heart sounds, no murmur or gallop. Abdomen: Soft, not distended. No guarding, no rigidity, but she has significant tenderness present in all the 4 quadrants, worse in the right lower and left lower quadrant. No rebound tenderness. Bowel sounds normoactive. Extremities: No leg edema. No calf tenderness. Skin: No rash, ulcer, cellulitis. Lymphatics: No lymph node enlargement in neck, supraclavicular, infraclavicular region. Neuro: No focal neurological deficit. Chest: Unremarkable. External Genitalia: Deferred. Rectal: Deferred. Laboratory Data: Yesterday; white count 5.6, hemoglobin 13.1, platelets 175. This morning; white count 4.4, hemoglobin 12.3, platelets 148. Yesterday; sodium 141, potassium 4.4, chloride 107, bicarb 29, BUN 19, creatinine 1.42, glucose 84. Liver function tests unremarkable. Lipase 107. This morning; lipase 170. Procalcitonin yesterday was less than 0.05 and lactic acid was 0.6. This morning; sodium 140, potassium 4.2, chloride 108, bicarb 28, BUN 13, creatinine 1.46. AST 163 and ALT 128, alkaline phosphatase normal at 88. Yesterday; her AST was 29 and ALT 30, alkaline phosphatase 69. Her urinalysis was normal. COVID-19 test negative. CAT scan of abdomen and pelvis shows stool filled small bowel loops which are mildly dilated and appears adhesed to anterior abdominal wall. There is edema and fluid in the small bowel mesenteric left lower quadrant. Impression: 1. Partial small bowel obstruction. 2. Diverticulosis. 3. Dementia. 4. Hypertension. 5. Hyperlipidemia. 6. Gastroesophageal reflux disease. 7. Osteoarthritis, multiple sites. Plan: We will admit the patient to hospital for further evaluation and management of this problem. The patient is appropriate for inpatient and is expected to spend 2 midnights in hospital. We will continue her home medications, which is amlodipine and metoprolol at this point per order. The patient will stay n.p.o. She is not having any nausea, vomiting, no abdominal distention, so there is no need for nasogastric tube placement at this time. DVT prophylaxis will be given using Lovenox. Fall precaution and SCD were ordered. IV fluid and IV antibiotic were started, which is Cipro and metronidazole and we will consult general surgeon. NEVIN/ANITA Voice ID: [id number] MTDD
[2022-03-17] MEDS: ENOXAPARIN 30 MG/0.3 ML SQ SCH (18:36)
[2022-03-18] MEDS: METRONIDAZOLE 500mg IVPB 500 MG/100 ML BAG IV SCH (00:57)
[2022-03-18 06:09] LABS: Absolute Lymphocytes (CBC) 1.3 K/uL (0.7-4.9); Hematocrit 30.8 % (36.0-45.0); Lymphocytes % 34.4 % (15.3-44.8); MCV 100.1 fL (80-100); MPV 10.2 fL (7.6-11.3); RBC Red Blood Cell Count 3.08 M/uL (3.86-4.86)
[2022-03-18 06:21] LABS: Magnesium 1.8 mg/dL (1.8-2.4); Potassium 3.5 mmol/L (3.5-5.1)
--- NOTE | 2022-03-18 07:05 | PN ---
Date of Progress Note: 03/17/2022 Subjective: The patient was seen this morning for followup. She was lying in bed, not in distress. No nausea or vomiting. Has had 2 to 3 bowel movements in last 24 hours, and she reports abdominal p ain is better compared to yesterday. Objective: Vital Signs: Reviewed. HEENT: Unremarkable. Lungs: Clear to auscultation. Heart: Sounds normal. Abdomen: Soft. Bowel sounds normal. No guarding, rigidity. No distention. Presence of tenderness in all the 4 quadrants, but better today than yesterday. Laboratory Data: There were no new blood work this morning. Extra blood culture has started to grow some gram-positive cocci. Definite identification and sensitivity result pending. It is only 1 bot tle out of 4 bottles growing, so there is a good possibility this could be skin contamination, but we will not know until we get the final report back. Impression: 1.Small bowel obstruction. 2.Hypertension. 3.Rule out sepsis. Plan: We will go ahead and continue current antibiotics, which are Cipro, Flagyl, and vancomycin. C ontinue current diet. The patient to ambulate with Physical Therapy. I will see her tomorrow chris justice for followup. We will repeat blood work tomorrow. Possible discharge to go home tomorrow shubham justice on her condition and blood culture results. Details and plan of treatment discussed with the patient's daughter today. NEVIN/MODL Voice ID: [id number] Report ID: [id number]
[2022-03-18 08:27] VITALS: BP 126/56; TEMP 98.7
--- NOTE | 2022-03-19 04:17 | DS ---
Date of Discharge: 03/18/2022 Disposition: Discharged to go home. Physical Examination: HEENT: Unremarkable. Lungs: Clear to auscultation. Heart: Heart sounds normal. Abdomen: Soft, bowel sounds normal. No guarding, rigidity, tenderness, or distention. Extremity: No leg edema. Laboratory Data: Upon admission, white count 5.6, hemoglobin 13.1, platelets 175. Today, white count 3.8, hemoglobin 10.2, platelets 121. Upon admission, sodium 141, potassium 4.4, chloride 107, bicarb 29, BUN 19, creatinine 1.42, glucose 84. Liver function tests unremarkable, calcitonin less than 0.05. Today, sodium 142, potassium 3.5, chloride 111, bicarb 25, BUN 7, creatinine 1.35, glucose 102, magnesium 1.8. Discharge Medications And Instructions: 1. Continue all prior home medications. 2. Follow up at my office next week on Thursday or Thursday. Hospital Course: This is an 86-year-old very pleasant female patient, who was admitted to the hospital with complaints of abdominal pain. Please see dictated H and P for more information. After patient was evaluated in the ER, she was admitted to the hospital with partial small bowel obstruction. The patient has not had any vomiting. She has had some nausea associated with abdominal pain. Dr. Obando from General Surgery was consulted and the patient did not require any nasogastric tube placement as she did not have any vomiting. She was having bowel movement even prior to this hospital admission and during this hospitalization. Empiric antibiotics Cipro and metronidazole was given and initially she was kept n.p.o., IV fluid was given along with IV antibiotics. DVT prophylaxis with Lovenox was given. Her overall condition improved during this hospital stay and yesterday we did abdominal x-ray, which showed resolution of small-bowel obstruction. She was started on clear liquid diet day before yesterday and yesterday it was advanced to soft diet. She is tolerating diet very well, ambulating well without any problem and today she was discharged to go home in stable condition with above-mentioned medication instructions. Final Diagnoses: 1. Partial small bowel obstruction. 2. Diverticulosis. 3. Senile dementia. 4. Hypertension. 5. Hyperlipidemia. 6. Gastroesophageal reflux disease. 7. Osteoarthritis on multiple sites. Discharge Instructions: The patient was planning to go to [place] to [facility] and I have advised her not to go because of her health problems. NEVIN/MODL Voice ID: [id number] Report ID: [id number] MTDD
== END 2022-03-18 08:23 | disposition home or self-care (01) | DRG 390 ==
LOC: ER 13:49 → ERHOLD 17:25 → 2ND 19:20
PROVIDERS: ADMIT Internal Medicine; ATTEND Internal Medicine
DX: K56.600 Partial intestinal obstruction, unspecified as to cause (principal); K57.90 Diverticulosis of intestine, part unspecified, without perforation or abscess without bleeding; F03.90 Unspecified dementia, unspecified severity, without behavioral disturbance, psychotic disturbance, mood disturbance, and anxiety; E78.5 Hyperlipidemia, unspecified; K21.9 Gastro-esophageal reflux disease without esophagitis; M15.9 Polyosteoarthritis, unspecified; M85.80 Other specified disorders of bone density and structure, unspecified site; R94.5 Abnormal results of liver function studies; I12.9 Hypertensive chronic kidney disease with stage 1 through stage 4 chronic kidney disease, or unspecified chronic kidney disease; N18.32 Chronic kidney disease, stage 3b; Z87.891 Personal history of nicotine dependence; Z88.0 Allergy status to penicillin; Z20.822 Contact with and (suspected) exposure to COVID-19
CPT/HCPCS: 36415; 70450; 74019; 74177; 80048; 80053; 80076; 80202; 81003; 81015; 83605; 83690; 83735; 84145; 85025; 87040; 87077; 87186; 87205; 96361; 96365; 96375; 97116; 97161; 99285; C9113; J0744; J1650; J2405; J3370; J3490; J7040; J7042; J7050; Q9967; U0003

== ENCOUNTER → 2023-11-10 | Emergency (ER) | payer OTHER ==
[~2023-11-10] MED LIST: ACETAMINOPHEN 325 MG TABLET ONE
--- NOTE | 2023-11-10 10:11 | RAD REPORT ---
EXAM DESCRIPTION: CT - CTHCSPWOC - 11/10/2023 9:48 am CLINICAL HISTORY: PAIN. Trauma COMPARISON: CT HEAD CSPINE MPR WO CONTRAST dated 01/25/2012 TECHNIQUE: Axial thin cut noncontrast CT images of the head were obtained. Axial thin cut noncontrast CT images of the cervical spine were obtained. Multiplanar reformatted images were generated and reviewed. All CT scans are performed using dose optimization technique as appropriate and may include automated exposure control or mA/KV adjustment according to patient size. FINDINGS: CT HEAD WITHOUT CONTRAST: No acute hemorrhage, hydrocephalus or extra-axial collection is identified.No areas of brain edema or midline shift. The paranasal sinuses and mastoids are clear.The calvarium is intact. CT CERVICAL SPINE WITHOUT CONTRAST: No fracture or subluxation.Straightening of normal cervical lordosis which could be positional or sec ondary to muscle spasm. Multilevel neural foraminal narrowing up to moderate, secondary to facet and uncovertebral joint spurring. [id number] degrees of disc height loss most pronounced at C4-5.No prevertebral soft tissues swelling is identified. IMPRESSION: No acute traumatic intracranial or cervical spine findings.
--- NOTE | 2023-11-10 10:24 | EDPHYS ---
Physician Documentation [facility] Name: Danielle Najera Age: 88 yrs Sex: Female : 1935 Arrival Date: 11/10/2023 Time: 09:14 Bed DX3 Private MD: CINTHIA Physician Wade Carrera HPI: 11/10 09:40 This 88 yrs old Female presents to ER via EMS with complaints of fall, hit rose marie head , left hand tingles. 09:40 The patient or guardian complains of pain, that is acute. The symptoms are located rose marie diffusely. Onset: The symptoms/episode began/occurred just prior to arrival. Context: The problem was sustained at home. The patient complains of pain to the left side of the back of head, left occipital area, left base of the skull, right side of the back of head, right occipital area and right base of the skull. The patient describes the headache as aching. Details of fall: The patient fell from an upright position, while walking. Historical: - Allergies: 09:17 Codeine; ap3 09:17 PENICILLINS; ap3 - PMHx: 09:17 Dementia; Dementia; Diverticulitis; High Cholesterol; Hypertension; ap3 - PSHx: 09:17 bowel resection; section; Cholecystectomy; stomach stapled and banded and ap3 reversed; - Immunization history:: Client reports receiving the 2nd dose of the Covid vaccine, Flu vaccine is up to date. - Social history:: Smoking status: Patient/guardian denies using tobacco, but has a distant history of tobacco abuse. - Family history:: not pertinent. ROS: 09:40 Constitutional: Negative for fever, chills, and weight loss, Eyes: Negative for injury, rose marie pain, redness, and discharge, ENT: Negative for injury, pain, and discharge, Neck: Negative for injury, pain, and swelling, Cardiovascular: Negative for chest pain, palpitations, and edema, Respiratory: Negative for shortness of breath, cough, wheezing, and pleuritic chest pain, Abdomen/GI: Negative for abdominal pain, nausea, vomiting, diarrhea, and constipation, Back: Negative for injury and pain, : Negative for injury, bleeding, discharge, and swelling, MS/Extremity: Negative for injury and deformity, Skin: Negative for injury, rash, and discoloration, Psych: Negative for depression, anxiety, suicide ideation, homicidal ideation, and hallucinations, Allergy/Immunology: Negative for hives, rash, and allergies, Endocrine: Negative for neck swelling, polydipsia, polyuria, polyphagia, and marked weight changes, Hematologic/Lymphatic: Negative for swollen nodes, abnormal bleeding, and unusual bruising, 09:40 Neuro: Positive for headache, Exam: 09:40 Constitutional: This is a well developed, well nourished patient who is awake, alert, rose marie and in no acute distress. Eyes: Pupils equal round and reactive to light, extra-ocular motions intact. Lids and lashes normal. Conjunctiva and sclera are non-icteric and not injected. Cornea within normal limits. Periorbital areas with no swelling, redness, or edema. ENT: Nares patent. No nasal discharge, no septal abnormalities noted. Tympanic membranes are normal and external auditory canals are clear. Oropharynx with no redness, swelling, or masses, exudates, or evidence of obstruction, uvula midline. Mucous membranes moist. Neck: Trachea midline, no thyromegaly or masses palpated, and no cervical lymphadenopathy. Supple, full range of motion without nuchal rigidity, or vertebral point tenderness. No Meningismus. Chest/axilla: Normal chest wall appearance and motion. Nontender with no deformity. No lesions are appreciated. Cardiovascular: Regular rate and rhythm with a normal S1 and S2. No gallops, murmurs, or rubs. Normal PMI, no JVD. No pulse deficits. Respiratory: Lungs have equal breath sounds bilaterally, clear to auscultation and percussion. No rales, rhonchi or wheezes noted. No increased work of breathing, no retractions or nasal flaring. Abdomen/GI: Soft, non-tender, with normal bowel sounds. No distension or tympany. No guarding or rebound. No evidence of tenderness throughout. Back: No spinal tenderness. No costovertebral tenderness. Full range of motion. Female : Normal external genitalia. Skin: Warm, dry with normal turgor. Normal color with no rashes, no lesions, and no evidence of cellulitis. MS/ Extremity: Pulses equal, no cyanosis. Neurovascular intact. Full, normal range of motion. Neuro: Awake and alert, GCS 15, oriented to person, place, time, and situation. Cranial nerves II-XII grossly intact. Motor strength 5/5 in all extremities. Sensory grossly intact. Cerebellar exam normal. Normal gait. Psych: Awake, alert, with orientation to person, place and time. Behavior, mood, and affect are within normal limits. 09:40 Neuro: Orientation: is normal, appropriate for stated age, no acute changes, Mentation: is normal, appropriate for stated age, no acute changes, Memory: is normal, appropriate for stated age, no acute changes, Cranial nerves: grossly normal, is grossly normal based on the patient's age, no acute changes, Cerebellar function: is grossly normal, is grossly normal based on the patient's age, no acute changes, Motor: is normal, is grossly normal based on the patient's age, no acute changes, moves all fours, strength is normal, Sensation: is normal, Gait: not applicable seizure activity, is not displayed by the patient, Vital Signs: 09:23 BP 142 / 72; Pulse 80; Resp 18; Pulse Ox 100% ; ap3 NIH Stroke Scale Scores: 09:40 NIHSS Score: 0 rose marie Brissa Coma Score: 09:44 Eye Response: spontaneous(4). Motor Response: obeys commands(6). Verbal Response: rose marie oriented(5). Total: 15. MDM: 09:21 Patient medically screened. rose marie 09:44 Differential diagnosis: Cervical Disc Herniation Cervical Raiculopathy Cervical rose marie Spondylosis cervical strain, Unstable Vertebral Fracture Vertical Compression Injury. Differential diagnosis: contusion, fracture, multiple trauma, sprain, strain. Data reviewed: vital signs, nurses notes, radiologic studies, CT scan. Consideration of Admission/Observation Escalation of care including admission/observation considered. I considered the following discharge prescriptions or medication management in the emergency department Medications were administered in the Emergency Department. See MAR. Independent interpretation of the following test(s) in the Emergency Department CT Scan: My interpretation is ct brain. Test considered but Not performed: Labs: no labs. Historians other than the Patient: patient well informed. Care significantly affected by the following chronic conditions: Hypertension, dementia. 11/10 09:33 Order name: CT Head C Spine; Complete Time: 10:23 rose marie Administered Medications: 09:40 Drug: Acetaminophen PO 650 mg PO once Route: PO; ap3 10:46 Follow up: Response: No adverse reaction; Pain is decreased ap3 Disposition Summary: 11/10/23 10:23 Discharge Ordered Notes: Location: Home rose marie Problem: new rose marie Symptoms: have improved rose marie Condition: Stable rose marie Diagnosis - Fall on same level, unspecified rose marie - Unspecified injury of head, initial encounter rose marie - Paresthesia of skin rose marie Followup: rose marie - With: Private Physician - When: 2 - 3 days - Reason: Recheck today's complaints, Continuance of care, Re-evaluation by your physician Followup: rose marie - With: Rox Aguayo MD - When: 2 - 3 days - Reason: Recheck today's complaints, Continuance of care, Re-evaluation by your physician Discharge Instructions: - Discharge Summary Sheet rose marie - Head Injury, Adult rose marie - Fall Prevention in the Home, Adult rose marie - Paresthesia rose marie - Fall Prevention in the Home, Adult, [id number] rose marie Forms: - Medication Reconciliation Form rose marie - Thank You Letter rose marie - Antibiotic Education rose marie - Prescription Opioid Use rose marie - Patient Portal Instructions rose marie - Leadership Thank You Letter rose marie NIH Stroke Scale - NIH Stroke Score Date: 11/10/2023 Time: 09:40 Total Score = 0 10. Dysarthria (speech clarity - read or repeat words) - 0(Normal) 11. Extinction and Inattention (visual/tactile/auditory/spatial/personal) - 0(No abnormality) 1a. Level of Consciousness (LOC) - 0(Alert) 1b. Level of Consciousness (LOC) (Month \T\ Age) - 0(Both) 1c. LOC Commands (Open \T\ Closes Eyes/[employer] Sales Engineer) - 0(Both) 2. Best Gaze (Lateral Gaze Paresis) - 0(Normal) 3. Visual Field Loss - 0(No visual loss) 4. Facial Palsy - 0(Normal) 5a. Left Arm: Motor (10-second hold) - 0(No drift) 5b. Right Arm: Motor (10-second hold) - 0(No drift) 6a. Left Leg: Motor (5-second hold - always test supine) - 0(No drift) 6b. Right Leg: Motor (5-second hold - always test supine) - 0(No drift) 7. Limb Ataxia (finger/nose \T\ heel/larose - test with eyes open) - 0(Absent) 8. Sensory Loss (pinprick arms/legs/face) - 0(Normal) 9. Best Language: Aphasia (description/naming/reading) - 0(No aphasia) Initials: rose marie Signatures: Dispatcher [employer] Wade Gonzalez MD MD cha Prokisch, Amanda, RN RN ap3
--- NOTE | 2023-11-10 10:24 | ER ---
Nurse's Notes [facility] Name: Danielle Najera Age: 88 yrs Sex: Female : 1935 Arrival Date: 11/10/2023 Time: 09:14 Bed DX3 Private MD: Diagnosis: Fall on same level, unspecified;Unspecified injury of head, initial encounter;Paresthesia of skin Presentation: 11/10 09:15 Chief complaint: Patient states: she was ambulating this morning when she tripped and ap3 stumbled into a wall. patient was complaining of left arm pain/left hand tingling. patient states the pain has subsided, however a few of her fingers remain "tingly". Coronavirus screen: At this time, the client does not indicate any symptoms associated with coronavirus-19. Ebola Screen: No symptoms or risks identified at this time. Initial Sepsis Screen: Does the patient meet any 2 criteria? No. Patient's initial sepsis screen is negative. Does the patient have a suspected source of infection? No. Patient's initial sepsis screen is negative. Risk Assessment: Do you want to hurt yourself or someone else? Patient reports no desire to harm self or others. Onset of symptoms was November 10, 2023. 09:15 Method Of Arrival: EMS: [facility] ap3 09:15 Acuity: CANDIE 4 ap3 Triage Assessment: 09:17 General: Appears in no apparent distress. Behavior is calm, cooperative, appropriate ap3 for age. Pain: Complains of pain in left hand and left arm Pain began suddenly. Neuro: Level of Consciousness is awake, alert, obeys commands, Oriented to person, place, time, situation. Cardiovascular: Patient's skin is warm and dry. Respiratory: Airway is patent Respiratory effort is even, unlabored, Respiratory pattern is regular, symmetrical. Historical: - Allergies: 09:17 Codeine; ap3 09:17 PENICILLINS; ap3 - PMHx: 09:17 Dementia; Dementia; Diverticulitis; High Cholesterol; Hypertension; ap3 - PSHx: 09:17 bowel resection; section; Cholecystectomy; stomach stapled and banded and ap3 reversed; - Immunization history:: Client reports receiving the 2nd dose of the Covid vaccine, Flu vaccine is up to date. - Social history:: Smoking status: Patient/guardian denies using tobacco, but has a distant history of tobacco abuse. - Family history:: not pertinent. Screenin:18 [facility] ED Fall Risk Assessment (Adult) History of falling in the last 3 months, ap3 including since admission Yes- single mechanical fall (1 pt) Confusion or Disorientation No (0 pts) Intoxicated or Sedated No (0 pts) Impaired Gait No (0 pts) Mobility Assist Device Used No (0 pt) Altered Elimination No (0 pt). Abuse screen: Denies threats or abuse. Nutritional screening: No deficits noted. Tuberculosis screening: No symptoms or risk factors identified. Assessment: 10:47 General: this nurse called [facility], and they report they are now in route to come ap3 get the patient. . Vital Signs: 09:23 BP 142 / 72; Pulse 80; Resp 18; Pulse Ox 100% ; ap3 Carnegie Coma Score: 09:44 Eye Response: spontaneous(4). Motor Response: obeys commands(6). Verbal Response: rose marie oriented(5). Total: 15. NIH Stroke Scale Scores: 09:40 NIHSS Score: 0 [facility] ED Course: 09:15 Patient arrived in ED. ap3 09:17 Triage completed. ap3 09:18 Arm band placed on left wrist. ap3 09:18 Patient has correct armband on for positive identification. ap3 09:21 Wade Carrera MD is Attending Physician. [facility] 09:48 CT Head C Spine In Process Unspecified. EDMS 10:24 Rox Aguayo MD is Referral Physician. rose marie 10:45 Provided Education on: discharge instructions. ap3 10:45 No provider procedures requiring assistance completed. Patient did not have IV access ap3 during this emergency room visit. Administered Medications: 09:40 Drug: Acetaminophen PO 650 mg PO once Route: PO; ap3 10:46 Follow up: Response: No adverse reaction; Pain is decreased ap3 Medication: 10:46 VIS not applicable for this client. ap3 Outcome: 10:23 Discharge ordered by . rose marie 10:45 Discharged to home ambulatory, ap3 10:45 Condition: good 10:45 Discharge instructions given to patient, Instructed on discharge instructions, follow up and referral plans. Demonstrated understanding of instructions, follow-up care, 10:48 Patient left the ED. ap3 NIH Stroke Scale - NIH Stroke Score Date: 11/10/2023 Time: 09:40 Total Score = 0 10. Dysarthria (speech clarity - read or repeat words) - 0(Normal) 11. Extinction and Inattention (visual/tactile/auditory/spatial/personal) - 0(No abnormality) 1a. Level of Consciousness (LOC) - 0(Alert) 1b. Level of Consciousness (LOC) (Month \\T\\ Age) - 0(Both) 1c. LOC Commands (Open \\T\\ Closes Eyes/Sponsorship Manager) - 0(Both) 2. Best Gaze (Lateral Gaze Paresis) - 0(Normal) 3. Visual Field Loss - 0(No visual loss) 4. Facial Palsy - 0(Normal) 5a. Left Arm: Motor (10-second hold) - 0(No drift) 5b. Right Arm: Motor (10-second hold) - 0(No drift) 6a. Left Leg: Motor (5-second hold - always test supine) - 0(No drift) 6b. Right Leg: Motor (5-second hold - always test supine) - 0(No drift) 7. Limb Ataxia (finger/nose \\T\\ heel/larose - test with eyes open) - 0(Absent) 8. Sensory Loss (pinprick arms/legs/face) - 0(Normal) 9. Best Language: Aphasia (description/naming/reading) - 0(No aphasia) Initials: rose marie Signatures: Dispatcher [employer] Wade Gonzalez MD MD cha Prokisch, Amanda RN RN ap3
[2023-11-10 15:44] VITALS: BP 142/72; O2SAT 100
== END ==
LOC: ER 09:14
DX: S09.90XA Unspecified injury of head, initial encounter (principal); R20.2 Paresthesia of skin; W18.30XA Fall on same level, unspecified, initial encounter; F03.90 Unspecified dementia, unspecified severity, without behavioral disturbance, psychotic disturbance, mood disturbance, and anxiety; Z88.0 Allergy status to penicillin; Z88.5 Allergy status to narcotic agent
CPT/HCPCS: 70450; 72125

== ENCOUNTER 2025-05-08 15:30 | Inpatient (IN) | payer OTHER ==
[2025-05-08] MEDS ORDERED: MELATONIN 3 MG TABLET PO PRN (19:48)
[2025-05-08] MEDS: METOPROLOL TAR 50 MG TAB PO SCH (20:35)
[2025-05-08] MEDS: ATORVASTATIN 80 MG TAB PO SCH (20:35)
[2025-05-08] MEDS: DONEPEZIL HCL 5 MG TAB PO SCH (20:36)
--- NOTE | 2025-05-08 22:35 | RAD REPORT ---
EXAMINATION: Head Brain Wo Cont CLINICAL INDICATION: Female, 89 years old.r/o bleed and compare w/ prev test ;cd at bs TECHNIQUE: Axial CT images from the skull base to the vertex without intravenous contrast. Coronal an d sagittal reformatted images were created from the data set. One or more of the following dose reduction techniques were used: Automated exposure control, adjustment of the mA and/or kV according to patient size, and/or iterative reconstruction. Unless otherwise specified, incidental findings do not require dedicated imaging follow-up. [id number]. COMPARISON: CT and MRI 05/02/2025. Note that a more recent exam was provided to radiology however due to technical difficulties, this exam was unable to be loaded into the system for viewing. FINDINGS: INTRACRANIAL: No acute intracranial hemorrhage. 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 The overall distribution is similar. . No hydrocephalus. No mass effect or midline shift. Mild chronic small vessel ischemic changes.Mild c erebral atrophy. VASCULATURE: No visualized abnormalities in the arteries or dural venous sinuses. SCALP/SKULL: No calvarial fracture identified. No acute soft tissue abnormality. SINUSES: The visualized paranasal sinuses are mostly clear. No significant mastoid fluid. 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 No acute intracranial hemorrhage. No evidence of infarct extension. Note that this exam is compared with 05/02/2025. A CD with more recent imaging was provided to radiology at the time of this exam however due to technical issues, this was unable to be loaded in to PACS for viewing. If these are ultimately able to be imported to PACS, the images can be reviewed and an addendum placed on this exam..
[2025-05-08 23:02] VITALS: BMI 29.0
[2025-05-09 01:00] LABS: Sqamous Epithelial <5 /HPF (None Seen); Urine Culture Reflex Order NOT NEEDED; Urine Microscopic Reflex YN ORDER UMIC
[2025-05-09 05:12] LABS: Absolute Lymphocytes (CBC) 1.4 K/uL (0.7-4.9); Hematocrit 43.9 % (36.0-45.0); Hemoglobin 15.0 g/dL (12.0-15.0); MCH 33.4 pg (27.0-35.0); MCHC 34.1 g/dL (32.0-36.0); MCV 97.9 fL (80-100); MPV 10.0 fL (7.6-11.3); Nucleated RBC Absolute Count 0.0 (0-0); Nucleated Red Blood Cells % 0.0 % (0-0); RBC Red Blood Cell Count 4.49 M/uL (3.86-4.86); White Blood Count 12.80 thou/uL (4.3-10.9)
[2025-05-09 05:30] LABS: Albumin 3.1 g/dL (3.4-5.0); Anion Gap 10.1 mEq/L (5.0-15.0); BUN Blood Urea Nitrogen 23.0 mg/dL (7-18); Glucose Level 89.0 mg/dL (74-106); Magnesium 2.0 mg/dL (1.6-2.4); Potassium 4.1 mEq/L (3.5-5.1); Prealbumin 11.9 mg/dL (20-40)
[2025-05-09] MEDS: FAMOTIDINE 20 MG TAB PO SCH (07:07)
[2025-05-09] MEDS: NIFEDIPINE XL 30 MG TABLET PO SCH (07:08)
[2025-05-09] MEDS ORDERED: FAMOTIDINE 20 MG TAB PO SCH (08:00)
[2025-05-09] MEDS: APIXABAN 2.5 MG TABLET PO SCH (19:24)
--- NOTE | 2025-05-09 19:42 | HP ---
Date of Admission: 05/08/2025 Time Of Service: 1 p.m. Chief Complaint: For hospitalization, stroke with some right-sided weakness. History Of Present Illness: Ms. Najera is an 89-year-old patient with baseline dementia and stage 4 ki dney disease and recurrent falls, who resides at [facility]. She was allowed to be transitioned to assisted living or perhaps a memory care unit due to cognitive decline and discha rged for safety. However, on 05/02, after she missed breakfast and lunch, she was found on the floor and then rolled and was brought to [facility], found to have new onset right-sided weakness and expressive aphasia. MRI of her brain identified multiple infarcts in the left frontal parietal lobes. She was transferred to [facility] for higher level of care. Her workup included an EKG which identified atrial fibrillation which was rate controlled. Atrial fi brillation was new onset, not known previously. She was initiated on aspirin therapy, however, shoul d be on full anticoagulation. However, a subsequent CT scan of the brain identified the left anterio r frontal lesion with a few areas of punctate foci of hemorrhage. As a result, she was not put on fu ll anticoagulation. Recommendation was for Eliquis 2.5 mg twice daily once she was cleared of the bl eeding. Given the patient was down for several hours, rhabdomyolysis is a concern. She was given hydration. She did have elevated CK levels. CK did trend down in addition to creatinine, which also likely was from her chronic renal insufficiency. She did have of course impaired cognitive functioning medical ly due to dementia and was on donepezil for her memory loss. Despite that, she was alert, oriented, following commands, and was able to participate with therapy. Did require management of hypertension with multiple medications including metoprolol, nifedipine, and of course ongoing monitoring. She was evaluated by the Physical Therapy, Occupational Therapy and Speech Therapy Service and found to be functioning well below her baseline. She requires minimal assistance for mobility, contact guemi rd assistance for oae-px-pzobl transfers. Ambulation was limited to less than 30 feet with a rolling walker with contact guard to minimum assistance. She has loss of balance difficulty requiring help with hand placement and with her swallowing, she requires speech as she is at high risk of aspiration with thin liquids. She is put on a minced and moist diet with thickened liquids. Her activities of daily living limited to contact guard assistance level for grooming, lower body dressing, maximal as sistance for toileting, moderate assistance and 2 persons required for transfers and for speech, also dysphagia and grossly expressive aphasia. Given her current level of functioning and comorbid conditions, she was referred [facility] where her medical conditions to be managed in parallel with her physical therapy. She will have 24 hours a day skilled rehabilitation and nursing, daily physician evaluation, and [facility] evaluation for discharge planning and home equipment. Past Medical History: As noted above. Allergies: PENICILLIN AND CODEINE. Medications: Tylenol 500 mg every 4 hours as needed, Lipitor 80 mg at bedtime, calcium 10 mg twice d aily, Pepcid 20 mg daily, melatonin 3 mg at bedtime, Lopressor 50 mg twice daily, and nifedipine 30 m g daily. Laboratory Studies: White blood cell count is 12.8, neutrophils 8.6, hemoglobin 15, platelets 181. Sodium 138, potassium 4.1, chloride 102, carbon dioxide 30, BUN 23, creatinine 1.43, glucose 89, calc ium 8.9, magnesium 2.0, albumin 3.1, prealbumin 11.9. Urinalysis from 05/09 shows 1+ ketone, 1+ bloo d, 11 to 20 red blood cells, 1+ total protein. X-ray/imaging: Brain MRI done prior to the hospitalization shows the acute infarct to the left front oparietal lobes. A repeat CT of the brain shows left anterior frontal lesion demonstrating a couple of pointed areas of hemorrhagic foci. Her EKG did show atrial fibrillation with rate control of abou t 80 beats per minute. Transthoracic echocardiogram shows normal left ventricular cavity size. All of the left ventricular segments contracted normally. Left ventricular ejection fraction was normal, greater than 60%. Right ventricle mildly enlarged. There was some systolic dysfunction in the righ t ventricle with TAPSE of 13 mm. The estimated peak atrial pressure is 25 to 30. Family History: Noncontributory. Social History: No alcohol, tobacco, or IV drug use. She lives at [facility], perhaps will requir e Assisted Living or Memory Care Unit after she is discharged. Review of Systems: No obvious fevers, chills, nausea, vomiting, myalgias, arthralgias. No rash. No issues of sleep, no bowel issues, no bladder issues. No other issues such as dermatological issues. Current Level Of Functioning: Currently, she is at a setup assistance for eating, grooming supervisi on, bathing maximum assistance, moderate assistance for upper body dressing, dependent for lower body dressing and donning and doffing footwear. Toileting, maximum assistance. Transfer from bed to rose marie ir to wheelchair maximum assistance. Ambulation 30 feet, moderate assistance. Stairs not attempted. Physical Examination: Vital Signs: Blood pressure is 130/64, pulse 75, respiratory rate 18 to 20, temperature 98, oxygen s aturation 95%. Weight 134 pounds, height 4 feet 9 inches, BMI 29.0. General: Ms. Najera is resting comfortably in bed. She appears to be in no acute distress. HEENT: Normocephalic, atraumatic. Sclerae anicteric. Oropharynx pink and moist. Neck: Supple. Chest: Clear. Heart: She has irregularly irregular heart. Extremities: Show no clubbing, cyanosis, or edema. Neuro: In terms of the cranial nerve examination, very mild difficulty following commands, but she w as able to respond appropriately. Her expression was cold. Face was symmetric and sensation intact. She did have some mild asymmetry in terms of right less than left in terms of perception of sensati on and strength in the hand. Hand network operations center technician strength is around 3/5 proximally, 4/5 in the right upper ext remity. In the lower extremities, she was able to lift the leg off the bed and reach proximally and distally at least 4/5 on the left side. Similarly so, mild weakness, 5-/5 proximally and distally an d decreased sensation. Coordination appears intact. Rehab And Medical Assessment And Plan: Ms. Najera is an 89-year-old patient admitted to the inpatient rehabilitation unit with impairment category 01, stroke. Her impairment group code is 01.2, right tressa dy involvement, left brain. Etiologic diagnosis is ischemic stroke of the left frontoparietal lobes with punctate hemorrhage in addition to stage 4 chronic kidney disease, hypertension, dyslipidemia, a nd dementia, potentially Alzheimer's related. Plan: She will have physical, occupational, and speech therapy 3.5 hours, 5 of 7 days. 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 Comorbidities That Are Impacting Rehabilitation: Given the patient's fragile conversion, DVT prophyl axis will be with SCDs at this point. A CT scan of the head as an interval study will be looking to see if she is able to receive full anticoagulation, until then will have SCDs and may then start Eliq uis 2.5 mg twice daily. She has cognitive impairment and discharge planning will likely be for a [facility] or at least Assisted Living. Otherwise, we will check for urinary tract infection. We will use incentive spirometry to reduce risk of pneumonia. We will follow hemoglobin and hematocrit . We will follow white blood cell count because of aspiration pneumonia risk. Rehab Specific Plan: Ms. Najera will have physical, occupational, and speech therapy 3.5 hours, 5 of 7 days, to improve her ability to transfer from a bed to a chair, to use a rolling walker, to ambulate more than household distances, to go up and down at least 10 steps, and to perform activities of randi ly living perhaps with supervision. Ms. Najera has a good understanding of the process of admission to the inpatient rehabilitation unit an d how she will have physical, occupational, and speech therapy. She will have 24 hours a day, 7 days a week, skilled rehabilitation and nursing, daily physician evaluation and management, and social se rvices evaluation and management for discharge planning to continue therapy after discharge. She cat l be followed by Dr. Aguayo, her primary care physician, who will be managing her comorbid conditions. Barriers To Discharge: Given the cognitive impairment, she will not likely be able to go home and be independent as she will have issues making safe decisions and [facility] with Memory Care Unit cat schreiber likely be a placement for her. Length Of Stay: Probably about 10 to 12 days. Disposition: Expected to go back to [facility] and to continue therapy via Home Health. Prognosis: Good. Code Status: The patient's code status is do not resuscitate. Rehab Specific Goals: 1. Become independent with upper and lower body dressing, donning and doffing footwear. 2. Independently mobilize 250 feet with a rolling walker. 3. Independently go up and down 10 steps with bilateral handrails. 4. Independently propel a wheelchair 250 feet. In terms of her cognitive function, she will likely b e at a supervision level at least for safety awareness. The above goals were reviewed with Ms. Najera and she is in agreement. By signing this document, I acknowledge I personally performed a full physical examination on Ms. Loli mcneil no later than 24 hours after her admission to the inpatient rehabilitation unit and determined that she is able to tolerate the above course of treatment at an intensive level for a reasonable period of time. A detailed individualized plan of care for her will be completed by hospital day 4 based on the preadmission screen, history and physical, and therapy evaluations. CHIKIS Voice ID: [id number]
[2025-05-09] MEDS ORDERED: APIXABAN 2.5 MG TABLET PO SCH (20:00)
--- NOTE | 2025-05-10 06:37 | HP ---
Date of Admission: 05/09/2025 Chief Complaint: Stroke. History Of Present Illness: This is an 89-year-old very pleasant female patient, who was living at [facility], was found on the floor by staff at the [facility] on 05/01/2025 and apparently as per my discussion with the patient's daughter today, she informed me that the patient was probably on the floor for 12 to 14 hours before staff found her on the floor like that and she was brought to our emergency room where she was evaluated and found to have stroke and she was sent to [facility] for higher level of care. Yesterday, she was brought into our emergency room to inpatient rehab. I have reviewed available record from outside hospital as well as record from our emergency room visit from 05/01/2025 and the patient had multiple acute infarct in left cerebral hemisphere, raising possibility of cardiogenic etiology and upon review of available records from [facility], it appears that the patient had atrial fibrillation as documented on echocardiogram result and her ejection fraction was normal. Last CAT scan from [facility] had shown small area of petechiae type of hemorrhage in the left cerebral hemisphere and as a result, anticoagulation therapy for atrial fibrillation was not given and recommendation is to repeat another CAT scan and then consider to start anticoagulation therapy for atrial fibrillation for future prevention of another stroke depending on the CAT scan result. Discharge summary is not available and I have requested that particular document. As per my discussion with the patient's daughter, she also has the same understanding about starting anticoagulation therapy depending on this repeat CAT scan which was done at our hospital last night after she was admitted. Her MRI of the brain done when she came into our emergency room on 05/01/2025 had shown multiple acute infarct. No hemorrhage at that time. Allergies: TO CODEINE CAUSING ITCHING AND PENICILLIN CAUSING SWELLING AT THE INJECTION SITE. Medications: List reviewed. 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 All other systems reviewed and negative. Past Medical History: Significant for senile dementia, hypertension, hyperlipidemia, gastroesophageal reflux disease, diverticulosis, chronic kidney disease, leg edema, osteoarthritis, osteopenia. Past Surgical History: Cataract surgery, cholecystectomy, exploratory laparotomy with sigmoid resection, stomach stapling, gastrostomy, small bowel resection with end-to-end anastomosis, . Family History: Father had cerebral aneurysm, diabetes, and heart disease. Mother had heart disease and unknown type of cancer. Brother had hypertension. Sister, hypertension and diabetes. Social History: Prior history of smoking. No illicit drugs. Use of alcohol negative. Physical Examination: Vital Signs: Height 4 feet 9 inches, weight 134 pounds, temperature 98, pulse 88, respiratory rate 20, blood pressure 130/64, oxygen saturation 95%. General: The patient appears weaker than normal, responds slowly, follows commands, not in any distress. HEENT: Head atraumatic, normocephalic. Conjunctivae nonerythematous. Sclerae white. Mouth, no thrush or edema noted. Ears/Nose, no mass, lesion, discharge noted. Neck: Supple. No JVD, lymph nodes, bruit, thyromegaly noted. Lungs: Bilateral good equal air entry. Clear to auscultation. No rhonchi. No rales. Heart: Normal heart sounds, no murmur or gallop. Abdomen: Soft, bowel sounds normal. No guarding, rigidity, tenderness, mass, hepatosplenomegaly, distention, or bruit noted. Extremities: No leg edema. No calf tenderness. Skin: No rash, ulcer, cellulitis. Lymphatics: No lymph node enlargement in neck, supraclavicular, infraclavicular region. Neuro: Right upper and right lower extremity power is 4/5 and left upper and left lower extremity is 4+/5. Chest: Unremarkable. External Genitalia: Deferred. Rectal: Deferred. Laboratory Data: CAT scan of the head done last night does not show any hemorrhage, shows evidence of this subacute infarct in the left cerebral hemisphere, no midline shift. WBC 12.8, hemoglobin 15, platelets 181. Sodium 138, potassium 4.1, chloride 102, bicarb 30, BUN 23, creatinine 1.43, glucose 89, albumin 3.1. Urinalysis, 1+ ketone, 1+ blood, 11 to 20 rbc, otherwise negative. Impression: 1. Stroke with right-sided hemiparesis secondary to atrial fibrillation due to cardiogenic emboli. 2. Chronic atrial fibrillation. 3. Chronic kidney disease stage IIIB. 4. Hypertension. 5. Hyperlipidemia. 6. Senile dementia. 7. Malnutrition, mild. Plan: We will go ahead and admit the patient to hospital to inpatient rehab. We will consult Dr. Ayers for Physical Therapy and provide physical therapy under his guidance. For hypertension, continue antihypertensive medication, monitor blood pressure. If necessary, adjust medication. For hyperlipidemia, continue high-dose statin therapy per order. No need for further intervention. Discharge instruction states to continue aspirin 81 mg daily, and according to current list, she is not on it on the rehab floor and I have communicated with nurse this morning that she should try to get me copy of discharge summary from [facility] and also she should communicate with Dr. Ayers regarding CAT scan that was done last night as we should start her on Eliquis 2.5 mg 2 times a day for her atrial fibrillation and stroke prevention if it is okay with Dr. Ayers. For malnutrition, no need for intervention except encourage oral nutrition as well as nutritional supplement like Ensure. I did communicate with the patient's daughter who was at bedside regarding code status and in the event of cardiopulmonary arrest, the patient would not want any CPR, defibrillation, or ventilator support as per my discussion with the patient's daughter and DNR order was written in the chart and I have asked nurse to let Social Service know to assist the patient to get out of hospital DNR paperwork ready for her. Upon discharge, the patient should not return to independent living at [facility] and she should go to either assisted care side or Memory Care Unit at [facility] and I have discussed this with the patient's daughter and she will start communicating with [facility] regarding this. Total time spent 60 minutes including review of available outside hospital medical record, review of emergency room visit record from 05/01/2025, review of last office visit record, and performing today's evaluation and management and communication with nursing staff. NEVIN/ANITA Voice ID: [id number]
[2025-05-10] MEDS: ACETAMINOPHEN 500 MG TAB PO PRN (12:49)
[2025-05-10] MEDS: MEGESTROL 40 MG TAB PO SCH (20:18)
[2025-05-10] MEDS: ENSURE ENLIVE 237 ML CAN PO SCH (20:19)
--- NOTE | 2025-05-10 22:47 | PN ---
Date of Progress Note: 05/10/2025 Subjective: The patient was seen this morning for followup. She was lying in bed, not in distress. Her daughter was with her at bedside. No new complaints, problems reported. Objective: Vital Signs: Reviewed. HEENT: Unremarkable. Lungs: Clear to auscultation. Heart: Sounds normal. Abdomen: Soft. Bowel sounds normal. No guarding, rigidity, tenderness, distention. Extremities: No leg edema. Neuro exam: Unchanged from yesterday. Impression: 1. Stroke. 2. Atrial fibrillation. 3. Hypertension. 4. Chronic kidney disease, stage 3B. 5. Hyperlipidemia. Plan: We will go ahead and continue Eliquis 2.5 mg 2 times a day. Continue statin therapy and antih ypertensive medication with metoprolol. We will continue physical therapy under guidance of Dr. Minerva hager and I will see her tomorrow for followup. NEVIN/MODL Voice ID: [id number] Report ID: [id number]
--- NOTE | 2025-05-11 01:02 | PN ---
Date of Progress Note: 05/10/2025 Time Of Service: 1:15. Subjective: Ms. Najera is resting completely in bed and family is at the bedside. She has significant difficulty with retention of information due to dfidjjdy-xq-iovwuckz dementia. However, she denies any ongoing pain, although it is very difficult to tell, but patient is mobilizing, jessy g, and does not believe, she has a new onset of pain. She does have a left frontal ischemic stroke m aking it also difficult for her to communicate as that affects the area of thought production and exp ression. Review of Systems: No fevers, chills, nausea, vomiting. She does have a poor appetite and patient's daughter said she d id not eat much today. She did not also drink much. She may have to receive IV fluids if she contin ues to not be able to eat well. However, Megace was ordered 40 mg twice daily. She does have the En sure Clear on board and may consider other protein supplementation approaches. Physical Examination: Vital Signs: Blood pressure 95/56, pulse up to 95, respiratory rate 16, temperature 97.5, oxygen sa turation 94%. Weight 134 pounds, height 4 feet 9 inches, BMI 29. General: Ms. Najera is resting comfortably in bed. She smiles and she says she is doing well __. HEENT: She appears normocephalic, atraumatic. Sclerae anicteric. Oropharynx pink and moist. Neck: Supple. Chest: Clear. Extremities: No edema, cyanosis. Laboratory Studies: White blood cell count 12.8, hemoglobin 8.6, platelets 181. Sodium 138, potassi um 4.1, chloride 102, carbon dioxide 30, BUN 23, creatinine 1.43, calcium 8.9. Magnesium 2.0. Albu min 3.1, prealbumin 11.9. Urinalysis from , 1+ ketones, 1+ blood, 11-20 red blood cells, 1+ tota l protein, otherwise unremarkable. X-ray/imaging: Noted on the , 2 days ago, she did have a CT scan of the head. This study showed similar distribution to previous left cerebral hemisphere and cortical subcortical infarcts. No acu te intracranial hemorrhage. No evidence of infarct extension. Progress Made With Physical, Occupational, And Speech Therapy: With physical therapy today, she did wheelchair mobilization 50 feet 4 times with contact guard to minimum assistance. She did require th at for turning and avoiding obstacles. She ambulated 30 feet 4 times with a rolling walker, but akash johnston fatigued. She did not report being dizzy, although blood pressures while sitting , hea rt rate 95. With occupational therapy, she was at a contact guard assistance for flj-wh-lnozg transf ers, contact guard for verbal cues for hand placement, minimum assistance for toilet hygiene, putting up and down pants. She does have some right hemiparesis of course from the left-sided stroke and re quires some help with that. With speech, she was provided speech education and did verbalize underst anding. In terms of the weekly assessment, she did score 7/15 on the BIMS and 9/30 on the SLUMS cons istent with moderate to severe cognitive impairment. Working memory, short-term memory, organization al skills, attention, temporal orientation all impacted and she will require ongoing therapy and spee therapy. Assessment And Plan: Ms. Najera is an 89-year-old patient in the rehabilitation unit with a left front al ischemic stroke. Imaging does not reveal any extension or . She still has significant decreased mobility, decreased physical functioning. Of course, obluofcq-vt-xpfanj dementia, dyslipid emia, risk of stroke. She has poor appetite, and she is on multiple antihypertensive medications for heart rate, blood pressure control. She does have insomnia as well. In terms of the plans, continu e with physical, occupational, and speech therapy 3.5 hours, 5 of 7 days. Continue with the list of medications. Those have been noted to address her comorbid conditions. Continue with all other safe ty awareness and precaution issues. Note her code status is do not resuscitate. LB/MODL Voice ID: [id number] Report ID: [id number]
[2025-05-11 05:09] LABS: Absolute Lymphocytes (CBC) 1.4 K/uL (0.7-4.9); Hematocrit 42.1 % (36.0-45.0); Hemoglobin 14.4 g/dL (12.0-15.0); MCH 33.2 pg (27.0-35.0); MCHC 34.2 g/dL (32.0-36.0); MCV 96.9 fL (80-100); MPV 10.4 fL (7.6-11.3); Nucleated RBC Absolute Count 0.0 (0-0); Nucleated Red Blood Cells % 0.1 % (0-0); RBC Red Blood Cell Count 4.35 M/uL (3.86-4.86); White Blood Count 9.40 thou/uL (4.3-10.9)
[2025-05-11 05:34] LABS: Albumin 2.8 g/dL (3.4-5.0); Anion Gap 8.4 mEq/L (5.0-15.0); BUN Blood Urea Nitrogen 43.0 mg/dL (7-18); Glucose Level 97.0 mg/dL (74-106); Magnesium 2.1 mg/dL (1.6-2.4); Potassium 3.4 mEq/L (3.5-5.1); Prealbumin 10.0 mg/dL (20-40)
[2025-05-11] MEDS: POTASSIUM CL SA 10 MEQ TAB PO ONE (08:51)
[2025-05-11] MEDS: NA CHLORIDE 0.9% 1,000 ML IV SCH (11:06)
--- NOTE | 2025-05-11 11:23 | RAD REPORT ---
Procedure: Chest Single View HISTORY: Shortness of breath COMPARISON: May 02, 2025 FINDINGS: The lungs appear clear of acute infiltrate. No significant pleural effusion noted. The heart is mildly enlarged. . IMPRESSION: No acute abnormality is displayed.
[2025-05-11] MEDS: ALBUTEROL 2.5 MG/3 ML NEB SOL NEB PRN (13:56)
--- NOTE | 2025-05-11 19:58 | PN ---
Date of Progress Note: 05/11/2025 Subjective: The patient was seen this morning for followup. She was lying in bed, not in distress. No new complaints or problems reported by her. Objective: Vital Signs: Reviewed. HEENT: Unremarkable. Lungs: Clear to auscultation. Heart: Sounds normal. Abdomen: Soft. Bowel sounds normal. No guarding, rigidity, tenderness, distention. Extremities: No leg edema. Laboratory Data: WBC 9.40, hemoglobin 14.4, platelets 181. Sodium 137, potassium 3.4, chloride 102, bicarb 30, BUN 43, creatinine 1.88, glucose 97. Impression: 1. Acute kidney injury. 2. Volume depletion. 3. Hypertension. 4. Atrial fibrillation. 5. Chronic anticoagulation therapy. 6. Stroke. Plan: After looking at vital signs, decision was made to discontinue nifedipine and was encouraged f or the patient to drink 60 to 90 ounces of water daily. We will continue metoprolol, Eliquis, and at orvastatin per order. During the course of day today, nurse called and informed me from the rehab [facility] that the patient had an episode where her heart rate had gone to 140 to 150 with drop in the bloo d pressure while she was working with therapy, so her therapy was discontinued. She was brought back in the bed and she started feeling better. Dr. Ayers had ordered IV fluid at 125 cc/hour and I d id order this IV fluid to be continued for total of 1 L. Amiodarone 200 mg 2 times a day was ordered, and we will continue metoprolol and Eliquis per order. NEVIN/MODL Voice ID: [id number] Report ID: [id number]
[2025-05-11] MEDS: AMIODARONE HCL 200 MG TAB PO SCH (21:20)
--- NOTE | 2025-05-12 01:08 | PN ---
Date of Progress Note: 05/11/2025 Time Of Service: 1:15. Subjective: Ms. Najera is sitting in chair beside the bed. She has no new complaints. She is making slow progress however with physical and occupational therapy. In addition, also slow progress with gloria la. She did have some significant drop in blood pressure today and she appeared to have decrease in her oxygenation. However, when her pulse ox was tested on her toes, she had very bright red , her saturations were shortly between 97% and 100%. She did have IV fluids and adjustment of m edications. An EKG was done, showed atrial fibrillation with rapid ventricular response. She will h ave episodes where her heart rate will be up to 120, amiodarone 50 mg is added to her beta-stalin. Dr. Aguayo of course is managing her medical conditions. Objective: Again, no fevers, chills, nausea, vomiting. She denies any significant complaints, altho ugh there is some dementia. She does not appear to be in significant pain. Physical Examination: Vital Signs: Blood pressure is 118/60, pulse of 97, respiratory rate 16 to 18, temperature 97.5, oxy gen saturation 94%. Note, she is a do not resuscitate patient. HEENT: She is otherwise normocephalic, atraumatic. Sclerae anicteric. Oropharynx moist. Neck: Supple. Extremities: No significant edema, cyanosis, or clubbing. Heart: Irregularly irregular heart rate. Laboratory Studies: Complete blood count with differential is normal except neutrophils are 74.1. W dianelys blood cell count is 9.4, hemoglobin 14.4. Sodium 137, potassium slightly low at 3.4, chloride 1 03, carbon dioxide 30, BUN 43, creatinine 1.88, she did have some dehydration and received IV fluids. Prealbumin is low at 10.0, albumin 2.8, magnesium 2.1, calcium 8.7, glucose 97. Urinalysis from , 1+ blood, 1+ ketone, 10 to 20 red blood cells, 1+ total protein. Cultures done. X-ray/imaging: Chest x-ray done today shows actually lungs are clear of acute infiltrate and no acut e abnormalities. Progress Made With Physical, Occupational, And Speech Therapy: With physical therapy today, she did hrenm-vz-knvbi transfers with minimum assistance and she did have again the observation status as not ed. She did receive IV fluids. She has not been healed well as the therapist noted. She was offere d water, Ensure, at that point hydrated very well, independent and participate well in therapy. With occupational therapy, completed 5 sets of 10 hand exercises with a yellow hand web master to improve stren gth in right hand. She has had chronic stroke. With her speech, sustained attention was given for 2 minutes only with 70% accuracy and moderate assistance. She recalled 3 of 3 unrelated items for 1 m inute with moderate assistance. She was able to tolerate minced and moist diet, although her intake was limited. She did not have any signs of aspiration. Assessment: Ms. Najera is an 89-year-old patient admitted to the inpatient rehabilitation unit with is chemic stroke in the left frontal region with some right-sided paresis. She does have some moderate cognitive impairment, decreased mobility, decreased physical functioning, and atrial fibrillation wit h rapid ventricular response, absolute low blood pressure. She did receive IV fluids, amiodarone for heart rate control, beta-stalin, and she has multiple comorbid conditions which are managed by Dr. Aguayo. Plan: She will continue with physical, occupational, and speech therapy 3.5 hours, 5 of 7 days as no taty. Adjustments of medications were made. She is followed by Dr. Aguayo who is managing her medical conditions. HUMERA/ANITA Voice ID: [id number] Report ID: [id number]
[2025-05-12] MEDS ORDERED: AMIODARONE HCL 200 MG TAB PO SCH ×2 (08:00)
[2025-05-12] MEDS: MIDODRINE HCL 5 MG TABLET PO SCH (08:13)
--- NOTE | 2025-05-12 13:18 | P.RH.PN ---
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4 fL (7.6-11.3) 05/11/25 04:50 Neutrophils % 74.1 % (41.7-73.7) H 05/11/25 04:50 Lymphocytes % 15.2 % (15.3-44.8) L 05/11/25 04:50 Monocytes % 9.9 % (3.3-12.3) 05/11/25 04:50 Eosinophils % 0.4 % (0-4.4) 05/11/25 04:50 Basophils % 0.4 % (0-1.3) 05/11/25 04:50 Absolute Neutrophils 7.0 K/uL (1.8-8.0) 05/11/25 04:50 Absolute Lymphocytes 1.4 K/uL (0.7-4.9) 05/11/25 04:50 Absolute Monocytes 0.9 K/uL (0.1-1.3) 05/11/25 04:50 Absolute Eosinophils 0.0 K/uL (0-0.5) 05/11/25 04:50 Absolute Basophils 0.0 K/uL (0-0.5) 05/11/25 04:50 Sodium 137 mEq/L (136-145) 05/11/25 04:50 Potassium 3.5 mEq/L (3.5-5.1) 05/12/25 05:48 Chloride 102 mEq/L (98-107) 05/11/25 04:50 Carbon Dioxide 30 mEq/L (21-32) 05/11/25 04:50 Anion Gap 8.4 mEq/L (5.0-15.0) 05/11/25 04:50 BUN 43 mg/dL (7-18) H 05/11/25 04:50 Creatinine 1.88 mg/dL (0.55-1.02) H 05/11/25 04:50 Est GFR (CKD-EPI) 25 ml/min (=/>90) L 05/11/25 04:50 Glucose 97 mg/dL (74-106) 05/11/25 04:50 Calcium 8.7 mg/dL (8.5-10.1) 05/11/25 04:50 Magnesium 2.1 mg/dL (1.6-2.4) 05/11/25 04:50 Albumin 2.8 g/dL (3.4-5.0) L 05/11/25 04:50 Prealbumin 10.0 mg/dL (20-40) L 05/11/25 04:50 Urine Color Yellow (Yellow) 05/09/25 00:25 Urine Clarity Clear (Clear) 05/09/25 00:25 Urine pH 5.5 (5.0-7.0) 05/09/25 00:25 Ur Specific [place] 1.016 (1.005-1.030) 05/09/25 00:25 Glucose (UA)(Auto) Negative (Negative) 05/09/25 00:25 Urine Ketones 1+ (Negative) H 05/09/25 00:25 Urine Blood 1+ (Negative) H 05/09/25 00:25 Urine Nitrite Negative (Negative) 05/09/25 00:25 Urine Bilirubin Negative (Negative) 05/09/25 00:25 Urine Urobilinogen Normal (Normal) 05/09/25 00:25 Ur Leukocyte Esterase Negative Walter/uL (Negative) 05/09/25 00:25 Urine RBC 11-20 /HPF (None Seen) H 05/09/25 00:25 Urine WBC <5 /HPF (<5) 05/09/25 00:25 Ur Squamous Epith Cells <5 /HPF (None Seen) 05/09/25 00:25 U Non-Squamous Epi Cells <5 /HPF (None Seen) 05/09/25 00:25 Urine Bacteria None seen /HPF (<20) 05/09/25 00:25 Urine Mucus Slight /HPF (None Seen) 05/09/25 00:25 Urine Culture Reflexed Not needed 05/09/25 00:25 Urine Total Protein 1+ (Negative) H 05/09/25 00:25 Weight: 134 lb Wound Present: No Closed Surgical Incision Present: No Negative Pressure Wound Therapy Present: No Physician Update: Her labs were reviewed and are stable except mildly low prealbumin. Poor cognition with right sided weakness and expressive aphasia. She has hypotension. SLUMS 9. Did not want to participate with speech. Met 1 PT goal. Transfers and bed mobility CGA. Her O2 and blood pressure drops. RW 30' min assist, WC 50' 4 with CGA. Min assist toileting, CGA with transfers. Poor eating on megace. Poor pinch with her right hand and gets frustrated. Summary: Patient's care plan and half-way goals have been reviewed and revised as necessary. Please see the Rehabilitation Signature page for all necessary signatures.
[2025-05-12] MEDS: METOPROLOL TAR 50 MG TAB PO SCH (20:57)
[2025-05-13] MEDS: METOPROLOL TAR 50 MG TAB PO SCH (08:14)
[2025-05-15 09:58] LABS: ALT/SGPT 61.0 U/L (13-56); Alkaline Phosphatase 63.0 U/L (45-117); Thyroid Stimulating Hormone 3.29 uIU/mL (0.358-3.740)
[2025-05-15 09:59] LABS: Potassium 3.4 mEq/L (3.5-5.1)
[2025-05-15 10:00] LABS: AST/SGOT 67.0 U/L (15-37); Albumin 2.8 g/dL (3.4-5.0); Albumin/Globulin Ratio 0.8 (1.1-1.8); Anion Gap 6.4 mEq/L (5.0-15.0); BUN Blood Urea Nitrogen 19.0 mg/dL (7-18); Globulin 3.7 g/dL (2.3-3.5); Glucose Level 101.0 mg/dL (74-106); Magnesium 1.7
--- NOTE | 2025-05-15 20:46 | PN ---
Date of Progress Note: 05/15/2025 Subjective: The patient was seen this morning for followup. No new complaints or problems reported by patient. She was lying in bed, not in any distress. Her daughter was with her at bedside. Objective: Vital Signs: Reviewed. HEENT: Unremarkable. Lungs: Clear to auscultation. Heart: Sounds normal. Abdomen: Soft. Bowel sounds normal. No guarding, rigidity, tenderness, distention. Extremities: No leg edema. Impression: 1. Stroke. 2. Atrial fibrillation. 3. Hypertension. 4. Chronic anticoagulation therapy. Plan: We will continue amiodarone, which was started last week on and patient has tolerated that very well. We will continue current dose of 200 mg two times a day and sometime later part of this week, we will reduce the dose to 200 mg once a day. Continue Eliquis 2.5 mg twice a day. Iker alba current antihypertensive medication. Today's blood work results reviewed and renal function is a bnormal, but better than prior test and the patient was encouraged to drink more water. I will see h er tomorrow for followup. NEVIN/MODL Voice ID: [id number] Report ID: [id number]
--- NOTE | 2025-05-16 14:48 | RAD REPORT ---
Modified barium swallow exam with speech pathology service HISTORY: [facility] reevaluate swallow after stroke Fluoroscopy Time: 2:53 minutes IMPRESSION: Please see the speech pathology service report for details. Barium contrast of multiple consistencies was provided the patient orally by the speech pathology dep artment. Fluoroscopic observation was performed during swallowing. The radiologist was not present for the examination. Provided images demonstrate no evidence for wanda subglottic tracheal aspiration or deep penetration. Pharyngeal residues noted.
--- NOTE | 2025-05-16 19:41 | PN ---
Date of Progress Note: 05/16/2025 Subjective: The patient was seen this morning for followup. She was sitting in wheelchair, doing ex ercise with her daughter. Physical Examination: HEENT: Unremarkable. Lungs: Clear to auscultation. Heart: Sounds normal. Abdomen: Soft. Bowel sounds normal. No guarding, rigidity, tenderness, distention. Extremities: No leg edema. Impression: 1. Stroke. 2. Atrial fibrillation. 3. Hypertension. 4. Chronic kidney disease, stage 3. Plan: Continue current medication. Continue current antihypertensive medication, Eliquis, and amiod arone. The patient has responded well to amiodarone. Her heart rate is well controlled. Rhythm is still irregular due to underlying atrial fibrillation. Continue physical therapy and I will see her tomorrow. NEVIN/MODL Voice ID: [id number] Report ID: [id number]
[2025-05-16] MEDS: ENSURE CLEAR 200 ML CAN PO SCH (20:27)
--- NOTE | 2025-05-17 03:41 | PN ---
Ms. Danielle Najera left frontal stroke and some expressive aphasia on top of baseline cognit adama impairment. Subjective: She is always smiling and happy about where she is and has no new complaints. Objective: No fevers, chills. No myalgias or arthralgias. disorientation, confusion fro m her cognitive impairment. Physical Examination: Vital Signs: Blood pressure 131/59, pulse 70, respiratory rate 18, temperature 98.6, O2 saturation 9 8% on room air. Note, she is a do not resuscitate. HEENT: She is again normocephalic, atraumatic. Sclerae anicteric. Oropharynx is moist. Neck: Supple. Extremities: Some incoordination in the right upper extremity with difficulty with comprehension and expression based on multiple modality issues including stroke and moderate dementia. Laboratory Studies: Yesterday, sodium 138, potassium 3.4, chloride 107, carbon dioxide 28, BUN 19, c reatinine 1.6, AST 67, ALT 61. Prealbumin is 10. TSH 3.29. X-ray/imaging: She had a modified barium swallow study done today. The study showed no evidence of wanda subglottic tracheal aspiration on the penetration. However, pharyngeal residues were noted. Progress Made With Physical, Occupational, And Speech Therapy: With physical therapy, multiple supin e-to-sit transfers done independently. [id number]-xy-[id number] transfers with contact guard assistance, ambulat ed 350 feet, another 125 feet twice, 125 feet with moderate assistance using a rolling walker. She d id have poor stability during ambulation and loss of balance noted . With occupational the rapy, contact guard assistance for shower transfers, wheelchair to bed with verbal cues required. Sh e was able to do lower body dressing with min assist. Again, Speech will work on the modified barium swallow study as noted. Assessment: Ms. Najera is an 89-year-old patient, admitted to the inpatient rehabilitation unit with a left frontal ischemic stroke. She does have decreased mobility, decreased physical functioning, rig ht-sided paresis, expressive aphasia, atrial fibrillation with rapid ventricular response and has had some episodes of low blood pressure. She is followed by Dr. Aguayo, her primary care physician. She is making good overall progress. Still limited by cognitive impairment. Plan: She will continue with physical, occupational, and speech therapy until discharge to hospice _ Dr. Aguayo will manage her comorbid conditions. Her risk of DVT addressed with Eliquis 2.5 mg twice da simone, Lipitor for dyslipidemia. She has Aricept for cognitive impairment. Ensure Clear for poor nutr ition, Megace for poor appetite. She is on twice daily with heart rate control and blood pressure control and she will again continue all therapy as noted. HUMERA/ANITA Voice ID: [id number] Report ID: [id number]
--- NOTE | 2025-05-17 20:52 | PN ---
Date of Progress Note: 05/17/2025 Subjective: The patient was seen this morning for followup. She was lying in bed, not in distress. Her daughter was with her at bedside. No new complaints or problems reported. Objective: Vital Signs: Reviewed. HEENT: Unremarkable. Lungs: Clear to auscultation. Heart: Sounds normal. Abdomen: Soft. Bowel sounds normal. No guarding, rigidity, tenderness, distention. Extremities: No leg edema. Impression: 1. Stroke. 2. Atrial fibrillation. 3. Hypertension. Plan: Continue current medication. Continue Eliquis and antihypertensive medication, amiodarone and physical therapy under guidance of Dr. Ayers. I will see her tomorrow for followup. NEVIN/MODL Voice ID: [id number] Report ID: [id number]
--- NOTE | 2025-05-18 00:07 | PN ---
Date of Progress Note: 05/17/2025 Time Of Service: 1 p.m. Subjective: Ms. Najera is resting comfortably in a chair in between therapy sessions. She has no new complaints. She is very happy about the progress made during her therapy sessions and has no pain or complaints. Objective: No fevers or chills. No nausea or vomiting. She does have some improved dexterity in th e right upper extremity, which is the area of affected by her left frontal stroke. Physical Examination: Vital Signs: Blood pressure 125/61, pulse 71, respiratory rate of 17, temperature 97.5, oxygen satur ation 99%. General: Ms. aNjera is happy and smiling. She is in no acute distress. HEENT: Appears normocephalic, atraumatic. Sclerae anicteric. Extremities: The right upper extremity dexterity is improving. She was working with occupational th erapy using a clasp-type device to hold on the on the table and she is still having signif icant difficulty with the proprioception to be able to manipulate the device which looks like a syrin ge with a clasp at the end. Laboratory Studies: No new laboratory studies. X-ray/imaging: No new x-rays. Medications: Have been reviewed and are unchanged. Progress Made With Physical, Occupational, And Speech Therapy: With physical therapy, she ambulated 400 feet, 250 feet, and 125 feet with moderate assistance. She was able to go up and up about 15 diamond ps with bilateral handrails with minimum assistance. Mobilized wheelchair 250 feet independently. W ith occupational therapy, supervision for toileting and especially for perineal and cleani ng and managing her clothes in the lower extremities. With speech, able to do sustain attention task s for 10 minutes with 80% accuracy and minimum assistance. She needed moderate assistance for tempor al orientation tasks and had 80% accuracy. She was able to recall 3 of 3 unrelated items after a min kobuk delay. Assessment: Ms. Najera is an 89-year-old patient, admitted to the inpatient rehabilitation unit with a stroke affecting the left frontal region. She has right upper extremity dexterity and some difficul ty with her communication and comprehension. She does have decreased mobility, decreased physical fu nctioning. She has episodes of severe hypotension, that is improved. She has a moderate dose ____ mg twice daily on board. She has Eliquis 2.5 mg twice daily for DVT prophylaxis, Lipitor 80 mg at bedtime for dyslipidemia. She has Aricept for dementia 10 mg twice daily. She has midodrine for pressure support, melatonin for insomnia, Lopressor for work reducing elevation of heart rate. She h as Megace for poor appetite, Pepcid for GE reflux. She does have Ensure for mild malnutrition. Plan: Continue with physical, occupational, and speech therapy 3.5 hours, 5 to 7 days. She will con tinue her list of comorbid condition medications, which have been managed by Dr. Aguayo and her dischar ge will be to long-term and will be next week. HUMERA/ANITA Voice ID: [id number] Report ID: [id number]
[2025-05-18 06:16] LABS: Absolute Lymphocytes (CBC) 2.0 K/uL (0.7-4.9); Hematocrit 37.4 % (36.0-45.0); Hemoglobin 12.7 g/dL (12.0-15.0); MCH 32.8 pg (27.0-35.0); MCHC 34.0 g/dL (32.0-36.0); MCV 96.7 fL (80-100); MPV 9.5 fL (7.6-11.3); Nucleated RBC Absolute Count 0.0 (0-0); Nucleated Red Blood Cells % 0.1 % (0-0); RBC Red Blood Cell Count 3.87 M/uL (3.86-4.86); White Blood Count 5.10 thou/uL (4.3-10.9)
[2025-05-18 06:40] LABS: Albumin 2.6 g/dL (3.4-5.0); Anion Gap 7.0 mEq/L (5.0-15.0); BUN Blood Urea Nitrogen 20.0 mg/dL (7-18); Glucose Level 94.0 mg/dL (74-106); Magnesium 1.5 mg/dL (1.6-2.4); Potassium 4.0 mEq/L (3.5-5.1); Prealbumin 19.4 mg/dL (20-40)
[2025-05-18] MEDS: AMIODARONE HCL 200 MG TAB PO SCH (09:25)
--- NOTE | 2025-05-18 21:47 | PN ---
Date of Progress Note: 05/18/2025 Subjective: Ms. Najera is very happy with therapy as usual. She has no new complaints and she will be discharged frontal stroke with some residual right-sided weakness and coordination. She is ambulating around the unit very well and is very happy about that and doing very well. Objective: No fevers, chills, nausea, vomiting, myalgias, arthralgias. No other complaints. Physical Examination: Vital Signs: Blood pressure 150/67, pulse 63, respiratory rate 18, temperature 97.5, oxygen saturati on 97%. General: Ms. Najera is ambulating with a rolling walker. Therapist is behind the wheelchair and tow. She is able to go into the bed and very well with dexterity. Laboratory Studies: Complete blood count differential is completely normal. Her sodium 142, potassi um 4.0, chloride 111, carbon dioxide 28, BUN 20, creatinine 1.7, glucose 94, calcium 8.6, magnesium 1 .2, albumin 2.6, prealbumin 19.4. Note, the patient's code status is do not resuscitate. X-ray and imaging: No new x-ray and imaging. Medications: Medications have been reviewed and are unchanged, managed by Dr. Aguayo. She does have t he amiodarone now put to 200 mg daily from 200 mg twice daily. Other medications are unchanged. Progress made with physical, occupational and speech therapy. With physical therapy, she did ambulat e 125 feet and 120 feet with standby assistance. Did have some retropulsion, supine sit transfers an d [id number]-bf-afdol transfers done with supervision. With occupational therapy, independent for bed mobil ity, from edge of bed to wheelchair exercises in the upper and lower extremities improving grasp strength in the right arm. With speech, she maintained sustained attention for given task for 5 minutes completed that with adequate accuracy and minimum assistance. She did temporal orientatio n tasks with moderate assistance with 70% accuracy. Maximum assistance for short-term memory recalli ng 30 second and 1 minute. Assessment: Ms. Najera is an 89-year-old patient in the rehabilitation unit with ischemic stroke in th e left frontal region. She does have some residual difficulty with communication. She has baseline dementia. She has right-sided weakness, but is improving, right-sided incoordination again improving . She still has decreased mobility, decreased physical functioning. She has atrial fibrillation wit h rapid ventricular response. She is on amiodarone. She has Eliquis for DVT prophylaxis. She has A ricept for dementia, Pepcid for GE reflux, Megace for poor appetite, melatonin for insomnia, midodrin e for hypotension. Plan: We will continue physical, occupational, and speech therapy at discharge. Continue comorbid c ondition medications were managed by Dr. Aguayo, primary care physician. She was doing very well and w ould be discharged, continue therapy and home health. HUMERA/ANITA Voice ID: [id number] Report ID: [id number]
--- NOTE | 2025-05-19 12:18 | PN ---
Date of Progress Note: 05/18/2025 Subjective: The patient was seen this morning for followup. She was lying in bed, not in distress. No new complaints or problems reported by her. Objective: Vital Signs: Reviewed. HEENT: Unremarkable. Lungs: Clear to auscultation. Heart: Sounds normal. Abdomen: Soft. Bowel sounds normal. No guarding, rigidity, tenderness, distention. Extremities: No leg edema. Laboratory Data: WBC 5.1, hemoglobin 12.7, platelets 202. Sodium 142, potassium 4, chloride 111, bi carb 28, BUN 20, creatinine 1.70, glucose 94, magnesium 1.5. Impression: 1. Stroke. 2. Atrial fibrillation. 3. Hypertension. 4. Hyperlipidemia. Plan: We will continue current medication. Continue current antiarrhythmic medication which is amio darone, and we will go ahead and continue her Eliquis and statin therapy per order. I will see her t omorrow for followup. NEVIN/MODL Voice ID: [id number] Report ID: [id number]
--- NOTE | 2025-05-19 12:23 | PN ---
Date of Progress Note: 05/19/2025 Subjective: The patient was seen this morning for followup. She was sitting in wheelchair working w [facility] speech therapist. Denies any complaints this morning. Objective: Vital Signs: Reviewed. HEENT: Unremarkable. Lungs: Clear to auscultation. Heart: Sounds normal. Abdomen: Soft. Bowel sounds normal. No guarding, rigidity, tenderness, distention. Extremities: No leg edema. Impression: 1. Stroke. 2. Atrial fibrillation. 3. Hypertension. 4. Hyperlipidemia. Plan: We will go ahead and continue physical therapy under guidance of Dr. Ayers today. Continue current amiodarone, Eliquis, and atorvastatin. We will see her tomorrow for followup. Plan is to d ischarge her to go to nursing facility tomorrow. I will see her in the morning. NEVIN/MODL Voice ID: [id number] Report ID: [id number]
--- NOTE | 2025-05-19 13:14 | P.RH.PN ---
Estimated Length of Stay: 16 Expected Discharge Date: 05/20/25 Discharge Disposition Plan: Home Family Support: Yes Residential Goal: Mobility, Transfers, Self Care Vital Signs: Last Vital Signs Temp 97.9 F 05/19/25 06:58 Pulse 63 05/19/25 06:58 Resp 16 05/19/25 06:58 BP 149/66 H 05/19/25 06:58 Pulse Ox 100 05/19/25 06:58 Laboratory: Laboratory Last Values WBC 5.10 thou/uL (4.3-10.9) 05/18/25 06:02 RBC 3.87 M/uL (3.86-4.86) 05/18/25 06:02 Hgb 12.7 g/dL (12.0-15.0) 05/18/25 06:02 Hct 37.4 % (36.0-45.0) 05/18/25 06:02 MCV 96.7 fL (80-100) 05/18/25 06:02 MCH 32.8 pg (27.0-35.0) 05/18/25 06:02 MCHC 34.0 g/dL (32.0-36.0) 05/18/25 06:02 RDW 13.1 % (12.1-15.2) 05/18/25 06:02 Plt Count 202 thou/uL (152-406) 05/18/25 06:02 MPV 9.5 fL (7.6-11.3) 05/18/25 06:02 Neutrophils % 48.2 % (41.7-73.7) 05/18/25 06:02 Lymphocytes % 38.9 % (15.3-44.8) 05/18/25 06:02 Monocytes % 10.8 % (3.3-12.3) 05/18/25 06:02 Eosinophils % 1.4 % (0-4.4) 05/18/25 06:02 Basophils % 0.7 % (0-1.3) 05/18/25 06:02 Absolute Neutrophils 2.5 K/uL (1.8-8.0) 05/18/25 06:02 Absolute Lymphocytes 2.0 K/uL (0.7-4.9) 05/18/25 06:02 Absolute Monocytes 0.6 K/uL (0.1-1.3) 05/18/25 06:02 Absolute Eosinophils 0.1 K/uL (0-0.5) 05/18/25 06:02 Absolute Basophils 0.0 K/uL (0-0.5) 05/18/25 06:02 Sodium 142 mEq/L (136-145) 05/18/25 06:02 Potassium 4.0 mEq/L (3.5-5.1) 05/18/25 06:02 Chloride 111 mEq/L (98-107) H 05/18/25 06:02 Carbon Dioxide 28 mEq/L (21-32) 05/18/25 06:02 Anion Gap 7.0 mEq/L (5.0-15.0) 05/18/25 06:02 BUN 20 mg/dL (7-18) H 05/18/25 06:02 Creatinine 1.70 mg/dL (0.55-1.02) H 05/18/25 06:02 Est GFR (CKD-EPI) 29 ml/min (=/>90) L 05/18/25 06:02 Glucose 94 mg/dL (74-106) 05/18/25 06:02 Calcium 8.6 mg/dL (8.5-10.1) 05/18/25 06:02 Magnesium 1.5 mg/dL (1.6-2.4) L 05/18/25 06:02 Total Bilirubin 0.6 mg/dL (0.2-1.0) 05/15/25 09:10 AST 67 U/L (15-37) H 05/15/25 09:10 ALT 61 U/L (13-56) H 05/15/25 09:10 Alkaline Phosphatase 63 U/L (45-117) 05/15/25 09:10 Serum Total Protein 6.5 g/dL (6.4-8.2) 05/15/25 09:10 Albumin 2.6 g/dL (3.4-5.0) L 05/18/25 06:02 Globulin 3.7 g/dL (2.3-3.5) H 05/15/25 09:10 Albumin/Globulin Ratio 0.8 (1.1-1.8) L 05/15/25 09:10 Prealbumin 19.4 mg/dL (20-40) L 05/18/25 06:02 TSH 3.290 uIU/mL (0.358-3.740) 05/15/25 09:10 Urine Color Yellow (Yellow) 05/09/25 00:25 Urine Clarity Clear (Clear) 05/09/25 00:25 Urine pH 5.5 (5.0-7.0) 05/09/25 00:25 Ur Specific [place] 1.016 (1.005-1.030) 05/09/25 00:25 Glucose (UA)(Auto) Negative (Negative) 05/09/25 00:25 Urine Ketones 1+ (Negative) H 05/09/25 00:25 Urine Blood 1+ (Negative) H 05/09/25 00:25 Urine Nitrite Negative (Negative) 05/09/25 00:25 Urine Bilirubin Negative (Negative) 05/09/25 00:25 Urine Urobilinogen Normal (Normal) 05/09/25 00:25 Ur Leukocyte Esterase Negative [place]/uL (Negative) 05/09/25 00:25 Urine RBC 11-20 /HPF (None Seen) H 05/09/25 00:25 Urine WBC <5 /HPF (<5) 05/09/25 00:25 Ur Squamous Epith Cells <5 /HPF (None Seen) 05/09/25 00:25 U Non-Squamous Epi Cells <5 /HPF (None Seen) 05/09/25 00:25 Urine Bacteria None seen /HPF (<20) 05/09/25 00:25 Urine Mucus Slight /HPF (None Seen) 05/09/25 00:25 Urine Culture Reflexed Not needed 05/09/25 00:25 Urine Total Protein 1+ (Negative) H 05/09/25 00:25 Weight: 123 lb 3.2 oz Wound Present: No Closed Surgical Incision Present: No Negative Pressure Wound Therapy Present: No Physician Update: Labs reviewed and are stable. Pain is managed. She has poor cognition. BIMS 10, SLIMS 10, Poor short term memory of 30 seconds. RW with lose balance and fall to the left. Supervision transfers, WC 250' independent. Met OT goals but requires supervision in the shower. Holds onto unstable surfaces. Summary: Patient's care plan and fdc goals have been reviewed and revised as necessary. Please see the Rehabilitation Signature page for all necessary signatures.
[2025-05-20 07:54] VITALS: BP 152/70; TEMP 97.4
[2025-05-20 09:10] VITALS: O2SAT 97
== END 2025-05-20 13:00 | DRG 65 ==
LOC: 5TH 18:10
PROVIDERS: ADMIT Internal Medicine; ATTEND Internal Medicine
DX: I63.9 Cerebral infarction, unspecified (principal); E44.1 Mild protein-calorie malnutrition; G81.91 Hemiplegia, unspecified affecting right dominant side; N18.4 Chronic kidney disease, stage 4 (severe); I12.9 Hypertensive chronic kidney disease with stage 1 through stage 4 chronic kidney disease, or unspecified chronic kidney disease; G30.9 Alzheimer's disease, unspecified; F02.C0 Dementia in other diseases classified elsewhere, severe, without behavioral disturbance, psychotic disturbance, mood disturbance, and anxiety; G47.00 Insomnia, unspecified; E78.5 Hyperlipidemia, unspecified; I48.91 Unspecified atrial fibrillation; E86.9 Volume depletion, unspecified; K21.9 Gastro-esophageal reflux disease without esophagitis; R29.6 Repeated falls; R47.01 Aphasia; Z66 Do not resuscitate; Z88.0 Allergy status to penicillin; Z88.5 Allergy status to narcotic agent; Z91.81 History of falling
CPT/HCPCS: 36415; 70450; 71045; 74230; 80048; 80053; 81001; 82040; 83735; 84132; 84134; 84443; 85025; 92523; 92610; 92611; 93005; 94640; 97110; 97112; 97116; 97129; 97163; 97165; 97530; 97542; J7030; J7613